=== PATIENT | male | born 1935 | race Caucasian/White ===

== ENCOUNTER 2019-04-26 11:14 | Inpatient (IN) | payer MEDICARE, OTHER ==
[2019-04-26 12:05] LABS: Hemoglobin 12.2 g/dL (14.0-18.0); Mean Corpuscular HGB CONC 32.1 g/dL (32.0-36.0); Mean Corpuscular Hemoglobin 31.5 pg (27.0-31.0); Mean Corpuscular Volume 98.1 fL (78.0-98.0); Mean Platelet Volume 8.6 fL (7.4-10.4); Platelet Count 312 thou/uL (130-400); RBC Distribution Width 11.3 % (11.5-14.5); Red Blood Cell (RBC) Count 3.86 mill/uL (4.70-6.10); White Blood Cell (WBC) Count 8.6 thou/uL (4.8-10.8)
[2019-04-26 12:31] LABS: Band 2 % (5-11); Eosinophils 1 % (0-10); Lymphocytes 15 % (21-51); MDiff Complete? YES; Monocytes 5 % (0-10); Neutrophil 75 % (42-75); RBC Morphology Normal; Reactive Lymphocytes 2 % (0-10)
[2019-04-26 12:35] LABS: Bilirubin Negative (Negative); Blood, Urine Negative (Negative); Clarity Clear (Clear); Glucose, Urine (Dipstick) Normal (Negative); Leukocyte Negative Leu/uL (Negative); Nitrite Negative (Negative); Protein, Urine (Dipstick) Negative (Neg-Trace); Urobilinogen Normal mg/dL (Less than 2)
[2019-04-26 12:35] LABS: ALT (SGPT) 17 U/L (8-55); AST (SGOT) 38 U/L (5-34); Albumin 3.5 g/dL (3.4-4.8); Alkaline Phosphatase 92 U/L (40-110); Anion Gap 16 mmol/L (10-20); BUN (Urea Nitrogen) 20 mg/dL (8.4-25.7); Bilirubin, Total 0.7 mg/dL (0.2-1.2); Calc. Creatinine Clearance 0 mL/min (70-130); Calcium 11.6 mg/dL (7.8-10.44); Carbon Dioxide 25 mmol/L (23-31); Chloride 103 mmol/L (98-107); Estimated GFR-MDRD 68; Globulin 2.9 g/dL (2.4-3.5); Glucose 83 mg/dL (83-110); Potassium 4.7 mmol/L (3.5-5.1); Protein, Total 6.4 g/dL (5.8-8.1); Sodium 139 mmol/L (136-145)
[2019-04-26 12:47] LABS: CKMB 1.2 ng/mL (0-6.6)
[2019-04-26 16:14] LABS: Troponin I 0.053 ng/mL (< 0.028)
[2019-04-26] MEDS ORDERED: Acetaminophen 325 MG TAB PO PRN (17:38)
[2019-04-26] MEDS ORDERED: Ondansetron ODT 4 MG TAB SL PRN (17:38)
[2019-04-26] MEDS ORDERED: Ondansetron PF 4 MG/2 ML Vial IVP PRN (17:38)
[2019-04-26] MEDS ORDERED: Labetalol HCl 100 MG/20 ML VIAL SLOW IVP PRN (17:50)
[2019-04-26 18:07] VITALS: BMI 32.3
[2019-04-26 18:24] LABS: Troponin I 0.039 ng/mL (< 0.028)
[2019-04-26] MEDS: Nitroglycerin 2% Ointment 1 INCH/1 GM Packet TOP SCH (19:27)
[2019-04-26] MEDS: Acetaminophen 325 MG TAB PO PRN (20:19)
[2019-04-26] MEDS: Famotidine 20 MG TAB PO SCH (20:19)
--- NOTE | 2019-04-26 22:37 | HP ---
PRIMARY CARE PHYSICIAN: Dr. Hunter. The patient sees a pain specialist, Dr. Marion, and also had been seeing Dr. Lee for neurosurgery. CHIEF COMPLAINT: My legs are getting weaker and my right leg just gives out. HISTORY OF PRESENT ILLNESS: Mr. Olsen is a pleasant 83-year-old gentleman who has a history of prostate cancer, which has been fairly remote. He says that he has been having problems with back and shoulder and neck pain for the past couple of months. He says that he has been having pain in his left shoulder, which radiates back into his shoulder blade and also has pain in his neck as well. He says this has been getting progressively worse and over the last 3 days it has gotten even worse. He also noted weakness in his legs. He says that his right leg just basically gives out. He says he usually walks with a walker, but now he can barely get to the wall and back he says without his legs basically giving out. He says he was going to see Dr. Lee in his office, because Dr. Lee had suspected that the leg weakness, shoulder and neck pain were related to cervical spine disease. He had a MRI done at the [facility] and has the disc and was going to follow up with Dr. Lee for this. However, he said he was so weak, he was afraid he would make it up to the office and as a result came to the ER instead. He denies any other symptoms such as fevers or chills. No night sweats. No weight loss. He denies having any injury or any fall, but has noted numbness in his feet. He says his bowels are usually fairly regular, but he does admit to being constipated off and on recently. He denies any chest pain. He denies any shortness of breath. Otherwise no other complaints. REVIEW OF SYSTEMS: All systems were reviewed and are negative except for that mentioned in the history of present illness. 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 PAST SURGICAL HISTORY: He has had an appendectomy when he was in his 40s. He said he had a perforation and had to be in the hospital for 21 days. He has had bilateral carpal tunnel surgeries, bilateral rotator cuff surgery, and cataract surgery as well as a radical prostatectomy in the . He also had a polyp removed and then had to have a partial colon resection. ALLERGIES: TO ASPIRIN AND NSAIDS, WHICH CAUSE EYE AND THROAT SWELLING. SOCIAL HISTORY: He is . He has one child. He is a nonsmoker and he occasionally drinks a few beers every now and then. He says he really cannot decide on code status, so therefore he is going to be a full code for right now. FAMILY HISTORY: Significant for cancer in his mother as well as his father. CURRENT MEDICATIONS ARE: None. He says that he had been taking a multivitamin off and on. PHYSICAL EXAMINATION: GENERAL: He is alert and oriented. He appears to be in no acute distress. He is well developed and well nourished. VITAL SIGNS: Blood pressure was 133/85, heart rate 74, respiratory rate of 18, temperature is 97.7, and O2 saturation is 98% on room air. HEENT: His pupils are equal, round, and reactive to light. Extraocular muscles are intact. Sclerae anicteric. Throat, there is no erythema, no exudate. NECK: No adenopathy, no bruits. LUNGS: Clear to auscultation. There is no wheezing, no rales, no rhonchi. CARDIOVASCULAR: He has a normal S1 and S2. There is no S3 or S4. No murmurs, clicks, or rubs. ABDOMEN: Soft, it is nontender and nondistended. Positive for bowel sounds. There is no rebound, no guarding, no organomegaly. EXTREMITIES: He has 1 to 2+ pitting edema in the ankles as well as the lower part of his calf. There is no calf tenderness however. No joint effusions. NEUROLOGIC: His cranial nerves 2 through 12 are grossly intact. EXTREMITIES: His muscle strength is 5/5 in both his upper and lower extremities. SKIN AND INTEGUMENT: There is no significant skin changes, no rash. LABORATORY DATA: White blood cell count is 8.6, hemoglobin 12.2, hematocrit is 37.9, and platelet count is 312. Sodium 139, potassium 4.7, chloride is 103, CO2 is 25, BUN of 20, creatinine 1.04, glucose is 83, calcium is 11.6, and troponin is 0.053. Urinalysis was negative. He had an EKG, which was sinus rhythm with no ST wave changes. ASSESSMENT: 1. Mr. Olsen is a pleasant 83-year-old gentleman who presents with lower extremity weakness, which has actually been progressive over the last couple of months, as well as pain in the left shoulder and neck region. I suspect this is musculoskeletal in origin and likely due to both C-spine and possible lumbar disk disease. I doubt he has an acute coronary syndrome despite his troponins being elevated. The weakness sounds fairly progressive and then with the focal weakness on the right lower extremity, it sounds more musculoskeletal than cardiac in origin. He will be admitted to telemetry as a precaution with regard to the lower extremity weakness and shoulder pain. It appears as if this is already under evaluation by Dr. Lee, and the patient has already obtained an MRI of the cervical spine and luckily he brought his imaging with him. We will consult Dr. Lee for further recommendations and consider a MRI of the lumbar spine as he has not had this in the last year. 2. Elevated troponin, unclear the etiology of this. However, once again, it does not appear he is having an acute coronary syndrome. We will go ahead and continue to trend his troponins, get an echocardiogram and get a lipid panel and reassess in the a.m. Otherwise, further recommendations are to follow. Job ID: [id number]
[2019-04-27 04:05] LABS: #Eosinphils 0.2 thou/uL (0.0-0.7); #Monocytes 0.9 thou/uL (0.11-0.59); #Neutrophils 6.7 thou/uL (1.40-6.50); %Basophils 0.3 % (0.0-1.0); %Eosinophils 1.8 % (0.0-10.0); %Lymphocytes 10.9 % (21.0-51.0); %Monocytes 10.2 % (0.0-10.0); %Neutrophils 76.8 % (42.0-75.0); Hemoglobin 11.3 g/dL (14.0-18.0); Mean Corpuscular Volume 97.1 fL (78.0-98.0); Mean Platelet Volume 8.5 fL (7.4-10.4); Platelet Count 270 thou/uL (130-400); RBC Distribution Width 11.2 % (11.5-14.5); Red Blood Cell (RBC) Count 3.33 mill/uL (4.70-6.10); White Blood Cell (WBC) Count 8.7 thou/uL (4.8-10.8)
[2019-04-27 04:34] LABS: Anion Gap 11 mmol/L (10-20); BUN (Urea Nitrogen) 20 mg/dL (8.4-25.7); Calc. Creatinine Clearance 76 mL/min (70-130); Calcium 11.3 mg/dL (7.8-10.44); Carbon Dioxide 25 mmol/L (23-31); Cardiac Risk 4.6 (Less than 4.5); Chloride 105 mmol/L (98-107); Cholesterol 166 mg/dl (< 200 Desired); Estimated GFR-MDRD 67; Glucose 80 mg/dL (83-110); HDL Cholesterol 36 mg/dL (>60 Neg Risk); LDL Cholesterol, Calculated 107 mg/dL; Potassium 3.6 mmol/L (3.5-5.1); Sodium 137 mmol/L (136-145); Triglycerides 113 mg/dL (Less than 150)
[2019-04-27] MEDS: Nitroglycerin 2% Ointment 1 INCH/1 GM Packet TOP SCH (07:18)
[2019-04-27] MEDS: Famotidine 20 MG TAB PO SCH ×2 (08:11→22:07)
[2019-04-27] MEDS: Sodium Chloride 0.9% 1,000 ML IV SCH (08:11)
[2019-04-27] MEDS: Enoxaparin Sodium 40 MG/0.4 ML SYRINGE SC SCH (08:11)
[2019-04-27 08:37] LABS: Iron 48 ug/dL (65-175); Iron Binding Capacity, Total 178 mcg/dL (261-462)
[2019-04-27] MEDS ORDERED: FLU VACC TS2019-20(65YR UP)/PF 180 MCG/0.5 ML SYRINGE IM ONE (09:00)
[2019-04-27 09:04] LABS: Ferritin 1099.52 ng/mL (22-322)
--- NOTE | 2019-04-27 11:39 | MRI ---
MRI LUMBAR SPINE NONCONTRAST: HISTORY: Visualized right sided leg weakness. Gait impairment. COMPARISON: None. FINDINGS: Mildly heterogeneous marrow signal intensity of the lumbar vertebrae. Intrinsic T1 hypointensity with associated T2 and STIR hyperintensity involving the anterior aspect of T12, posterior right aspect of L4, extending into the right L4 pedicle, left aspect of L2 and at the S2 level. Findings favor mul tifocal osseous metastases. Mild loss of vertebral body height at L4 without edema suggesting a remote mild compression fracture, without significant retropulsion. Abnormal soft tissue prominence of bilateral adrenal glands as well as lack of normal architecture of the left kidney. Malignancy/metastases is suspected until proven otherwise. Conus medullaris terminates at the superior aspect of L1. T12-L1:Adequate disc hydration. No significant central canal stenosis or significant neural foraminal narrowing. L1-L2:Minimal desiccation without significant loss of disc space height. No significant central canal stenosis. Bilaterally, neural foramen are patent. L2-L3:Disc desiccation with mild loss of disc space height. Broad-based disc bulge, ligament flavum t hickening and facet hypertrophy result in mild central canal stenosis. Mild narrowing of bilateral subarticular zones with partial obscuration of bilateral traversing L3 nerve roots. Moderate bilatera l neural foraminal narrowing. L3-L4:Disc desiccation with mild loss of disc space height. Broad-based disc bulge, ligament flavum t hickening and facet hypertrophy result in moderate to severe central canal stenosis. Moderate to severe right and moderate left foraminal narrowing. L4-L5:Disc desiccation with mild loss of disc space height. Broad-based disc bulge, ligament flavum t hickening and facet hypertrophy result in moderate central canal stenosis. Moderate bilateral neural foraminal narrowing. L5-S1:Vacuum disc phenomenon with mild loss of disc space height. Broad-based disc bulge does not cau se any significant stenosis of the thecal sac. However, there is encroachment upon bilateral subarticular zones due to disc material and posterior element hypertrophy. Partial obscuration of yudy ateral traversing S1 nerve roots. Moderate to severe bilateral neural foraminal narrowing. Mildly distended urinary bladder is nonspecific. IMPRESSION: 1. Multifocal osseous metastases as described above. There appears be a metastatic lesion at T12, L2 , L4 and S2. 2.. Degenerative disc disease of the lumbar spine as described above. Varying degrees of significant central canal stenosis and foraminal narrowing as described above. 3. Fullness of both adrenal glands and loss of normal architecture of the left kidney. Dedicated CT o f the chest, abdomen, and pelvis is recommended. Transcribed Date/Time: 04/27/2019 12:03 PM
--- NOTE | 2019-04-27 11:55 | MRI ---
THORACIC SPINE MRI WITHOUT CONTRAST: DATE: 04/27/2019. COMPARISON: None. HISTORY: Generalized weakness with right-sided leg weakness. TECHNIQUE: Multiplanar, multisequence MR imaging of the thoracic spine without contrast. FINDINGS: There is a 2.3 cm lesion of decreased T1 and increased T2 signal within the anterior aspect of the T1 2 vertebral body. There is a lesion centered within the pedicle and pars intraarticularis on the lef t at T8 which demonstrates decreased T1 and increased T2 signal. There is a nonspecific round lesion of central decreased and peripheral increased signal within the superior aspect of the T8 vertebral body measuring 8 mm. No anterolisthesis or retrolisthesis noted. There is no significant central ca nal stenosis or neural foraminal stenosis at any level within the thoracic spine. There is no abnorm al signal intensity identified within the thoracic cord. There is questionable abnormal decreased T1 and T2 signal within the region of the facet joint on the left at C7-T1 extending into the left neural foramen, only partially evaluated/visualized on this ex am. This could represent a mass lesion. Limited evaluation of the lung parenchyma suggests pulmonary nodules within posterior aspect of the i thao lungs bilaterally. Bilateral adrenal masses are noted, suspicious for metastatic disease. IMPRESSION: 1. Two nonspecific thoracic spine lesions, including a lesion at T8 and T12. Given the suggestion o f bilateral pulmonary nodules, these findings are concerning for possible metastatic disease. Recomm end CT and whole body scan. 2. Question bilateral adrenal masses for which CT is advised. 3. Possible lesion centered within the C7-T1 neural foramen on the left for which dedicated contrast -enhanced cervical spine MRI advised. Recommend CT of the chest, abdomen, and pelvis with IV and oral contrast as well. CODE T POS: CHET
[2019-04-27 13:06] LABS: Reference Lab Name LABCORP
--- NOTE | 2019-04-27 13:12 | PDOC.HOSPP ---
- Subjective Encounter Date: 04/27/19 Encounter Time: 13:09 Subjective: Mr. Olsen was seen today in follow-up of lower extremity weakness as well as pain in his left shoulder. He feels about the same. - Objective Vital Signs & Weight: Vital Signs (12 hours) Temp Pulse Resp BP Pulse Ox 04/27/19 11:57 98 F 82 16 134/62 94 L 04/27/19 07:34 96 04/27/19 07:18 98.0 F 69 24 H 157/66 H 96 04/27/19 03:44 98.1 F 77 17 124/58 L 97 Weight Weight 219 lb 6.006 oz I&O: 04/26/19 04/27/19 04/28/19 06:59 06:59 06:59 Intake Total 240 Balance 240 Result Diagrams: 04/27/19 03:49 04/27/19 03:49 Hospitalist ROS - Medication Medications: Active Medications Generic Name Dose Route Start Last Admin Trade Name Freq PRN Reason Stop Dose Admin Acetaminophen 650 mg 04/26/19 17:50 04/26/19 20:19 Tylenol PO 650 mg Q4H PRN Administration Headache/Fever/Mild Pain (1-3) Enoxaparin Sodium 40 mg 04/27/19 09:00 04/27/19 08:11 Lovenox SC 40 mg 0900 FAITH Administration Famotidine 20 mg 04/26/19 21:00 04/27/19 08:11 Pepcid PO 20 mg BID FAITH Administration Sodium Chloride 1,000 mls @ 70 mls/hr 04/27/19 07:45 04/27/19 08:11 Normal Saline 0.9% IV 1,000 mls .[id number] FAITH Administration Sodium Chloride 10 ml 04/27/19 09:00 04/27/19 08:13 Flush - Normal Saline IVF 10 ml Q12HR FAITH Administration - Exam Eye: PERRL Heart: RRR, no murmur, no gallops, no rubs, normal peripheral pulses Respiratory: CTAB, no wheezes, no rales, no ronchi, normal chest expansion, no tachypnea, normal percussion Gastrointestinal: soft, non-tender, non-distended, normal bowel sounds, no palpable masses, no hepatomegaly Extremities: no cyanosis, 1+ LE edema Hosp A/P (1) Lower extremity weakness Code(s): R29.898 - OTH SYMPTOMS AND SIGNS INVOLVING THE MUSCULOSKELETAL SYSTEM Status: Acute (2) Metastatic disease Code(s): C79.9 - SECONDARY MALIGNANT NEOPLASM OF UNSPECIFIED SITE Status: Acute (3) History of prostate cancer Code(s): Z85.46 - PERSONAL HISTORY OF MALIGNANT NEOPLASM OF PROSTATE Status: Acute (4) Hypercalcemia Code(s): E83.52 - HYPERCALCEMIA Status: Acute - Plan * Back pain and leg weakness- MRI results noted- he appears to have metastatic disease to the spine- he has a history of Prostate cancer, so will check a PSA * Hypercalcemia- I suspect due to cancer- his PTH is suppressed * Will place him on IV fluids and re-check in the AM * Await further recommendations from Neurosurgery * Will place him on IV decadron * Anemia- most likely due to chronic disease * Troponin- slightly elevated- I doubt this represents an acute coronary syndrome- will follow-up of Echo results, and hopefullt can discontinue telemetry
--- NOTE | 2019-04-27 16:00 | CT ---
EXAM: CT of the chest with contrast CT of the abdomen and pelvis with contrast HISTORY: Osseous metastatic disease on MRI lumbar spine COMPARISON: MRI lumbar spine 04/27/2019 TECHNIQUE: 1. Multiple contiguous axial images were obtained in a CT the chest with contrast. Coronal and sagitt al reformats were performed. 2. Multiple contiguous axial images were obtained and a CT of the abdomen and pelvis with contrast. C oronal and sagittal reformats were performed. FINDINGS: CT CHEST: HEART: Normal in size without focal cardiac abnormality MEDIASTINUM: No hilar or mediastinal lymphadenopathy. LUNGS: Too numerous to count nodules are seen scattered throughout both lungs consistent with cannonb all metastases. PLEURAL SPACE: No pneumothorax or pleural effusion. CHEST WALL SOFT TISSUES: Unremarkable CT ABDOMEN/PELVIS: ABDOMEN: LIVER: within normal limits. BILE DUCTS: Normal caliber. GALLBLADDER: No calcified gallstones. Normal caliber wall. PANCREAS: within normal limits. SPLEEN: within normal limits. ADRENALS: 3.3 cm right adrenal mass. The left adrenal mass is contiguous with the mass of the left ki dney. KIDNEYS: 10.7 cm left renal mass contiguous with the left adrenal mass. There is nodularity surroundi ng the left kidney in the perinephric fat. Some of these nodules are seen along the superior aspect of the kidney and some of the nodules are seen more inferiorly. The nodules measure up to 2.0 cm in s ize. 2.2 cm right renal cyst. PELVIS: REPRODUCTIVE ORGANS: Surgical clips in the pelvis are likely from prior prostatectomy. URETERS: Nodularity is seen surrounding the left ureter extending down to the pelvis. BLADDER: within normal limits. PERITONEUM: No ascites or free air, no fluid collection. BOWEL: There is possibly a 3.2 cm mass involving the proximal jejunum. MESENTERY AND RETROPERITONEUM: No enlarged mesenteric or retroperitoneal lymph nodes. VESSELS: Atherosclerotic calcifications. ABDOMINAL WALL: within normal limits. OSSEOUS STRUCTURES: A large lytic lesion is seen in the left scapula consistent with osseous metastat ic disease. There is a lytic lesion in the anterior left fourth rib consistent with an osseous metastasis. Subtle trabecular change in the anterior aspect of the T12 vertebral body likely represen ts osseous metastatic disease. Subtle changes also seen in the left pedicle of L4. IMPRESSION: 1. There is a large mass involving the superior pole the left kidney and left adrenal gland. This cou ld be a primary renal or adrenal mass. 2. There are scattered nodules surrounding the left kidney and proximal left ureter which likely repr esent focally invasive metastatic disease. 3. 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 Osseous metastatic disease 5. Right adrenal metastasis 6. Possible jejunal mass. This could also represent an adjacent invasion by the nodularity that surro unds the left kidney and adrenal gland.
[2019-04-27] MEDS ORDERED: Iopamidol-370 76% 500 ML 1 ML ONE (16:08)
[2019-04-27] MEDS: Dexamethasone 4 mg/ml Vial SLOW IVP SCH (18:30)
[2019-04-27] MEDS: Acetaminophen 325 MG TAB PO PRN (18:31)
--- NOTE | 2019-04-27 22:14 | CON ---
DATE OF CONSULTATION: 04/27/2019 CHIEF COMPLAINT: Leg weakness, right hip pain, neck pain, left shoulder pain. HISTORY OF PRESENT ILLNESS: Mr. Olsen is a pleasant 83-year-old gentleman who presented to the emergency department yesterday for evaluation of increased weakness in his legs. He was scheduled to have an office visit with our Neurosurgery team today, however he stated that he felt his symptoms had progressed to a point where he needed to be evaluated sooner. He states that over the last week and a half he has had progressive weakness in his legs, greater on the right. He states that his legs have been giving out from underneath him. He typically uses a walker to assist with ambulation at baseline. However, this has not been as helpful with his increased weakness. He denies significant pain in his back. He does report right hip pain that is exacerbated by movement of his right leg. Additionally, he reports neck pain radiating into the left shoulder. He also reports pain in his left arm that is nondermatomal. Overall, he states that while his present symptoms have been worsening over the last week and a half, they have been significantly worse over the last 3 days. The patient has an MRI of the cervical spine from 02/2019 that he brings on CD. No recent imaging of his thoracic or lumbar spines. He has not undergone any recent physical therapy or epidural steroid injections. He has previously undergone lumbar IGLESIA with Dr. Harrison and experienced symptomatic relief. No prior spinal surgeries. PRIOR MEDICAL HISTORY: Prostate cancer, remote. PHYSICAL EXAMINATION: The patient is awake, alert, and appropriate. He has good strength throughout his upper and lower extremities bilaterally, however he does have some limited range of motion in the right leg secondary to pain in his right hip. His range of motion is most limited upon testing of the right iliopsoas and hamstring. Otherwise, he has sensation to light touch intact and equal in both legs. His gait was not assessed. IMPRESSION AND DIAGNOSES: 1. Lumbar stenosis with increased leg weakness. 2. Neck pain, left shoulder pain and left arm pain. 3. History of prostate cancer. PLAN: At this time, I have reviewed this case and discussed imaging with Dr. Lee. The patient recently had an open MRI of the cervical spine completed in February 2019, which he provided on a CD. This was reviewed and displayed no findings concerning for central or foraminal cervical stenosis. The patient had no recent imaging of his thoracic or lumbar spine completed. Therefore, MRIs of the thoracic and lumbar spine without contrast were ordered to further evaluate his increased lower extremity weakness.. His thoracic MRI showed findings of vertebral body lesions of T8 and T12, but no thoracic stenosis. Lumbar MRI demonstrated bilateral lateral recess stenosis of L2-S1. The patient has not had recent conservative management with lumbar epidural steroid injections. Therefore, he will be referred to Pain Management for interlaminar epidural steroid injections. Should he fail conservative management, surgery would be an L2-S1 laminectomies, partial facetectomies, and foraminotomies. At this time, patient can be managed from an outpatient basis. There is no need for urgent or emergent neurosurgical intervention at this time given the patient's imaging findings and his clinical examination. Our medical colleagues are assisting with further workup of his vertebral body lesions, which may represent metastatic disease. A CT chest/abdomen/pelvis has been ordered to further evaluated. Patient would benefit from therapies during his hospital stay. Plan will be discussed with the patient when we see him tomorrow morning. Call for any changes in neurologic status or any other concerns. This was a 50 minute initial visit in which greater than 50% of the time was spent in review of records, imaging, evaluation, examination of the patient, and formulation of a plan. The remaining time was spent in counseling and coordination of care. Job ID: [id number] [facility]
[2019-04-28] MEDS: Sodium Chloride 0.9% 1,000 ML IV SCH ×2 (01:30→11:25)
[2019-04-28] MEDS: Dexamethasone 4 mg/ml Vial SLOW IVP SCH ×5 (01:31→23:20)
[2019-04-28 04:25] LABS: Anion Gap 12 mmol/L (10-20); BUN (Urea Nitrogen) 18 mg/dL (8.4-25.7); Calc. Creatinine Clearance 71 mL/min (70-130); Calcium 10.8 mg/dL (7.8-10.44); Carbon Dioxide 24 mmol/L (23-31); Chloride 104 mmol/L (98-107); Estimated GFR-MDRD 62; Glucose 148 mg/dL (83-110); Potassium 4.4 mmol/L (3.5-5.1); Sodium 136 mmol/L (136-145)
[2019-04-28] MEDS: Enoxaparin Sodium 40 MG/0.4 ML SYRINGE SC SCH (11:23)
[2019-04-28] MEDS: Famotidine 20 MG TAB PO SCH ×2 (11:23→20:10)
--- NOTE | 2019-04-28 13:29 | PRG ---
DATE OF SERVICE: 04/28/2019 This is a 50-minute initial hospital visit note, in which 50 minutes were spent reviewing the imaging record, evaluation, examination, patient formulation of plan. Greater than 50% time was spent in counseling on Robert Olsen. I read the notes of my colleague Maryann Kearns PA-C and agrees with content. SUBJECTIVE: Mr. Olsen is a very pleasant 83-year-old gentleman. He is a family friend of another one of my patients. I was going to see him in clinic yesterday for low back and right leg pain and weakness. He had increased weakness and presented to the hospital. Upon our exam, he had good strength throughout his lower extremity myotomes, but admittedly this was over manual muscle testing and not functional assessment with gait. He endorses pain into the right hip and anterior thigh and L3 distribution. Review of lumbar spine MRI demonstrates stenosis that is most severe at L2-L3 that extends down from L3 all the way down to S1, but again the lion's share of his stenosis is at L2-L3. He has also had urinary incontinence. He also has lesions in his bones and while he has no cervical stenosis nor does he have any thoracic stenosis on an outside disk on [place] imaging respectively. He does have lesions in the bone. 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 We are getting MRI of the brain without and with contrast to further staging given the right lower extremity weakness. OBJECTIVE: On exam, he does have as my colleague laid out good strength throughout his lower extremity myotomes. He has no obvious cranial nerve deficits nor any upper extremity deficits. He has left shoulder pain but has a scapular met on the left side. Dr. Coronado will be seeing the patient in regard to prognostication, but obviously it is not good with his multifocal mets related to his renal cell carcinoma. I would advocate for injection therapy at this point and rehab and palliative care, but I will continue to follow along. Job ID: [id number]
--- NOTE | 2019-04-28 15:02 | MRI ---
Brain MRI with and without contrast: 04/28/2019 COMPARISON: None HISTORY: Metastatic disease, assess for intracranial metastatic disease. TECHNIQUE: Multiplanar multisequence MR imaging of the brain with and without contrast FINDINGS: The diffusion weighted imaging demonstrates no evidence for acute infarction. The axial gra dient echo imaging demonstrates no evidence for intracranial hemorrhage. There is mild diffuse cerebral volume loss with associated prominence of the CSF containing spaces. N o midline shift or mass effect. No ventricular enlargement. No significant mucosal abnormality is noted involving the imaged paranasal sinuses/mastoid air cells. Arterial flow voids at the axial level of the skull base appear grossly unremarkable on the T2-weight ed imaging. There is an enhancing calvarial lesion posteriorly and superiorly to the left of midline measuring 4 cm, evidence of a left parietal calvarial metastatic lesion. The postcontrast imaging demonstrates no discrete intra-axial enhancing lesion. IMPRESSION: Calvarial metastatic disease as detailed above. No intra-axial enhancing mass lesion.
--- NOTE | 2019-04-28 16:37 | CON ---
DATE OF CONSULTATION: 04/28/2019 CONSULTING: Dr. Abdi. CONSULTED: Dr. Coronado. REASON FOR CONSULTATION: Renal mass. HISTORY OF PRESENT ILLNESS: Mr. Olsen is an 83-year-old white male with a history of lumbar stenosis and significant degenerative disk disease with progressively worsening radiculopathy in his right leg. He is currently followed by Dr. Lee for this and had progressively had worsening right leg weakness. He was scheduled to have an MRI and see Dr. Lee for this in a few weeks, but he began having significant weakness to the point where he could not even walk. He was collapsing at home, and he was brought in by EMS to the emergency room, where he underwent workup at that time with urgent MRI. During the MRI, aside from his lumbar stenosis, it was noted that he had nonspecific lesions on the spine concerning for possible metastatic disease as well as possible adrenal masses and renal masses, which were not well evaluated on the MRI. He subsequently received a CT of the chest, abdomen, and pelvis by the Hospitalist Service, which demonstrated a large confluent mass on the left kidney and left adrenal gland with regional lymphadenopathy, jejunal mass, multiple lung metastases, and multiple osseous metastatic diseases throughout the left scapula, ribs, spine, and other bony structures. The patient currently denies any weight loss. He denies any chest pain or shortness of breath, although his troponins were elevated on initial laboratory evaluation. This is currently being worked up while in the hospital. He does have a history of prostate cancer and has had this treated in the past, but states he has been free of prostate cancer for many years and is no longer following this issue. He has not had any hematuria or flank pain. He did have shoulder pain, which has progressively been getting worse in his left shoulder for the past several weeks, which he attributed to arthritis or some other problem. On the CT, there is correlation with significant sclerotic bone lesions in his left scapula, which is probably responsible for the pain in that location. He reports no urinary difficulties. Otherwise, he has no history of urolithiasis. ALLERGIES: ASPIRIN AND NSAIDS, WHICH HE HAD ANAPHYLACTIC REACTIONS TO. PAST MEDICAL HISTORY: 1. Prostate cancer. 2. Degenerative disk disease and lumbar stenosis. 3. Arthritis. PAST SURGICAL HISTORY: 1. Appendectomy in his 40s. 2. Bowel perforation repair. 3. Radical prostatectomy in early . 4. Cataract surgery. 5. Partial colectomy. 6. Bilateral rotator cuff surgeries. FAMILY HISTORY: Significant for cancer in his parents, although the exact type was unspecified. SOCIAL HISTORY: The patient is currently . He lives with his . He does have a child and a granddaughter, who help make most of their medical decisions, although he still makes his own medical decisions. He does not smoke and drinks only on social occasions. He is currently a full code as he was not able to decide code status on this admission. REVIEW OF SYSTEMS: A 12-point review of system was reviewed and negative other than what was commented on the HPI. PHYSICAL EXAMINATION: VITAL SIGNS: Temperature 98.4, pulse 90, respirations 20, blood pressure 115/64, and saturation 94% on room air. GENERAL: No apparent distress. Communicative and alert. Well nourished, well developed, appears stated age. HEENT: Normocephalic, atraumatic. Pupils are symmetric and round. Wears glasses. Moist mucous membranes. Trachea midline. CARDIOVASCULAR: Regular rate and rhythm. Normal S1 and S2. Symmetric pulses. CHEST: No increased work of breathing, symmetric expansion of the lungs. Clear to auscultation anteriorly. ABDOMEN: Soft, nontender, and nondistended. Positive bowel sounds. No obvious organomegaly. Due to the patient's weight, the mass is not clearly defined on physical exam on his left kidney. There is a suprapubic scar from his prostatectomy. : Unremarkable. KEESHA is deferred at this time. EXTREMITIES: No clubbing, cyanosis, or edema. MUSCULOSKELETAL: No joint deformities or joint erythema noted. The patient does have tenderness over his right scapula and right shoulder. NEUROLOGIC: Cranial nerves 2 through 12 appear grossly intact. The patient has significant right lower extremity weakness, which presumably is from his lumbar stenosis according to Dr. Lee. His left leg seems to have enough strength. The patient states he cannot walk adequately currently. No complaints of arm weakness, and he does seem to have good strength in his hands. SKIN: Warm and dry. No rashes or lesions. Good turgor. PSYCHIATRIC: Alert and oriented x3. Appropriate mood and affect. LABORATORY EVALUATION: The full set of labs are in the [facility] system, which I have reviewed. Of note, the patient's white count is 8.7, hemoglobin is 11.3, and platelets of 270. Creatinine is currently 1.13 with a calcium of 10.8. PSA is less than 0.02. PTH is at 7. ASSESSMENT AND PLAN: An 83-year-old white male with likely renal cell carcinoma, although adrenocortical carcinoma is less likely, but not excluded. The patient does have regional and distant metastatic disease including soft tissue metastases, which is generally indicative of a poor prognosis. Dr. Lee does feel that his right lower extremity weakness is most likely due to lumbar radiculopathy. I would agree with Dr. Lee's assessment. However, I do think brain imaging would be necessary given the extensive nature of metastatic disease. The patient may have brain metastasis or possibly a lesion on his left temporal lobe, which may cause right leg weakness as well. This would also be necessary for proper staging. I did speak with Dr. Quevedo, who recommended that we go ahead and get a bone scan as well for full staging as they may continue trending this over time. We would recommend getting a percutaneous renal biopsy to ensure that this is not adrenocortical carcinoma, and the subtype of renal cancer that is discovered may guide immunotherapy or chemotherapy if the patient desires. We had a brief conversation regarding hospice and palliative care versus definitive treatment. The patient is a little bit undecided on what to do and I told him that it would be best to discuss things with his family as well as an oncologist. If he is not sure at the current time, I would recommend proceeding forward with the treatment plan as he would probably have an initial response to the chemotherapeutic or immunotherapeutic agents, although it will likely not be curative in his case, it may prolong survival and help with palliation of symptoms. Ultimately, I think it would be best for him to talk with the medical oncologist regarding this disease and his prognosis as there will be a very limited role for surgical resection, especially in the setting of the patient's age, soft tissue metastatic disease, and the possibility of bone metastasis, which we will await results for. I will continue to follow along if necessary, but there will not be much of a role for urologic care in this instance. The patient has no evidence of recurrence of prostate cancer. The patient's hypercalcemia is likely secondary to bony metastatic disease as is further reflected by his suppressed PTH levels. SUMMARY OF RECOMMENDATIONS: 1. N.p.o. after midnight. 2. Percutaneous renal biopsy of left renal mass tomorrow. This will need to be done under anesthesia as the patient states he will not be able to lay still very long due to his back and shoulder pain. 3. We will hold Lovenox. This can be restarted 24 hours after his renal biopsy if there is no evidence of bleeding or hemorrhage. 4. Medical Oncology consult. 5. A brain MRI and bone scan. Job ID: [id number]
[2019-04-28] MEDS ORDERED: Magnevist 469MG/ML 20 ML VIAL ONE (16:43)
[2019-04-28] MEDS: Acetaminophen 325 MG TAB PO PRN (20:10)
[2019-04-29] MEDS: Dexamethasone 4 mg/ml Vial SLOW IVP SCH ×3 (05:14→16:57)
[2019-04-29] MEDS: Sodium Chloride 0.9% 1,000 ML IV SCH ×3 (05:14→21:21)
[2019-04-29] MEDS: Famotidine 20 MG TAB PO SCH ×2 (09:18→21:18)
[2019-04-29] MEDS ORDERED: Glycopyrrolate 0.2 MG/ML 5 ML SYRINGE ONE (10:40)
[2019-04-29] MEDS ORDERED: PROPOFOL 200 MG/20 ML VIAL ONE (10:40)
[2019-04-29] MEDS ORDERED: Ondansetron PF 4 MG/2 ML Vial ONE (10:40)
[2019-04-29] MEDS ORDERED: Rocuronium Bromide 10 MG/ML (10ML VIAL) ONE (10:40)
[2019-04-29] MEDS ORDERED: Lidocaine 1% PF 5 ML VIAL ONE (10:40)
[2019-04-29] MEDS ORDERED: Succinylcholine Chloride 20 MG/ML 10 ml SYRINGE FS ONE (10:40)
[2019-04-29] MEDS ORDERED: Fentanyl 100 MCG/2 ML VIAL ONE ×2 (12:37→12:42)
--- NOTE | 2019-04-29 15:32 | CT ---
EXAM: CT Renal Perc Biopsy PROVIDED CLINICAL HISTORY: Large left renal mass with metastatic disease. COMPARISON: CT abdomen on 04/27/2019. TECHNIQUE: The procedure including the risks and complications were explained to the patient, and informed conse nt was obtained. General endotracheal anesthesia was performed for this examination by the anesthesiology department. Patient was placed in the prone position on the CT scan table. Noncontrast CT scan was obtained to the level of the large left renal mass with grid localizer in place. An area was marked and then meticulously prepped and draped in usual sterile fashion. Skin and subcutaneous tissues were infiltrated with 1% lidocaine for local anesthesia at the intended puncture site. Small skin incision was made. A 17-gauge guide needle was advanced followed by axial noncontrasted CT images. This was repeated until the needle was placed within the most posterio r margin of the left renal mass. Utilizing coaxial technique, a total of [id number] core needle biopsy specimens were obtained. Abnormal cells were obtained on initial biopsy. 2 additional biopsy s pecimens were obtained. The inner stylette was replaced, and the needle was removed. Hemostasis was achieved with direct pressure. Follow-up noncontrasted CT scan through level of biopsy demonstrates n o perinephric fluid or hematoma adjacent to site of biopsy. Dry sterile dressing was placed at biopsy site. Patient tolerated the procedure well and without imme diate complication. IMPRESSION: Technically successful CT-guided percutaneous biopsy of large left renal mass. Final pathology result s are currently pending.
--- NOTE | 2019-04-29 16:17 | NM ---
WHOLE BODY BONE SCAN: HISTORY: Renal cancer with osseous metastases RADIOPHARMACEUTICAL: 31 mCi technetium 99m-MDP injected intravenously COMPARISON: None CORRELATION: CT chest, abdomen and pelvis of 04/27/2019 FINDINGS: There is increased uptake in the vertex of the skull, left scapula pain bilateral femurs, consistent with osseous metastatic disease. There scattered degenerative activity in the appendicular skeleton. Tracer excretion through the kidneys is within normal limits. IMPRESSION: Multiple osseous metastases.
--- NOTE | 2019-04-29 16:30 | PRG ---
DATE OF SERVICE: 04/29/2019 SUBJECTIVE: The patient recently just underwent a percutaneous renal mass biopsy. He is in recovery. He states he is feeling okay. He is not having any major pain. Unfortunately, his brain MRI yesterday did demonstrate a left-sided calvarial mass, which very easily could be causing the patient's right-sided leg weakness. Alternatively, it may also be his spinal stenosis. OBJECTIVE: VITAL SIGNS: Temperature 97.6, pulse 68, respirations 18, blood pressure 143/70, and saturation 94% on room air. GENERAL: No apparent distress, a little somnolent, but otherwise appears okay. CARDIOVASCULAR: Regular rate and rhythm. Normal S1 and S2. ABDOMEN: Soft, nontender, and nondistended. Positive bowel sounds. GENITOURINARY: Nonfocal, unremarkable. EXTREMITIES: No clubbing, cyanosis, or edema. LABORATORY DATA: On laboratory evaluation, there are no new labs today to evaluate. 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 The overall prognosis is extremely poor for this patient. I do think the patient understands that his prognosis is not very good. He has not yet decided on hospice versus palliative type treatment. We had recommended to proceed with the biopsy, so that if he decides to pursue treatment, he can have a tissue diagnosis to consider palliative chemo or immunotherapies. For now, we are still awaiting consultation from Medical Oncology. From a urologic standpoint, there is really nothing further for us to provide at this point. The patient is not a candidate for cytoreductive nephrectomy given distal and brain metastases. Best option for the patient would either be palliative chemotherapy and palliative radiation in painful areas or straight hospice and palliative care only. This ultimately should be decided between Medical Oncology and the patient. From my standpoint, I will go ahead and sign off. If there are any further issues or treatments necessary from a urologic standpoint, please do not hesitate to re-consult. Job ID: [id number]
--- NOTE | 2019-04-29 18:17 | PDOC.HOSPP ---
- Subjective Encounter Date: 04/29/19 Encounter Time: 18:16 Subjective: Mr. Olsen was seen today in follow-up of renal mass, and metastatic cancer. He does not have any complaints. He denies pain. - Objective Vital Signs & Weight: Vital Signs (12 hours) Temp Pulse Resp BP Pulse Ox 04/29/19 16:59 98.5 F 55 L 18 135/71 92 L 04/29/19 11:42 97.6 F 68 143/70 H 94 L 04/29/19 08:08 97.7 F 71 20 143/73 H 93 L 04/29/19 08:00 93 L Weight Weight 219 lb 6.006 oz I&O: 04/28/19 04/29/19 04/30/19 06:59 06:59 06:59 Intake Total 960 2320 Output Total 300 Balance 960 2020 Result Diagrams: 04/27/19 03:49 04/28/19 03:44 Hospitalist ROS - Medication Medications: Active Medications Generic Name Dose Route Start Last Admin Trade Name Freq PRN Reason Stop Dose Admin Acetaminophen 650 mg 04/26/19 17:50 04/28/19 20:10 Tylenol PO 650 mg Q4H PRN Administration Headache/Fever/Mild Pain (1-3) Dexamethasone 4 mg 04/27/19 18:00 04/29/19 16:57 Decadron SLOW IVP 4 mg Q6HR FAITH Administration Famotidine 20 mg 04/26/19 21:00 04/29/19 09:18 Pepcid PO 20 mg BID FAITH Administration Sodium Chloride 1,000 mls @ 70 mls/hr 04/27/19 07:45 04/29/19 16:57 Normal Saline 0.9% IV Not Given .[id number] FAITH Sodium Chloride 10 ml 04/27/19 09:00 04/29/19 09:20 Flush - Normal Saline IVF Not Given Q12HR FAITH - Exam Eye: PERRL Heart: RRR, no murmur, no gallops, no rubs, normal peripheral pulses Respiratory: CTAB, no wheezes, no rales, no ronchi, normal chest expansion, no tachypnea, normal percussion Gastrointestinal: soft, non-tender, non-distended, normal bowel sounds, no palpable masses Extremities: no cyanosis, no edema Hosp A/P (1) Lower extremity weakness Code(s): R29.898 - OT SYMPTOMS AND SIGNS INVOLVING THE MUSCULOSKELETAL SYSTEM Status: Acute (2) Metastatic disease Code(s): C79.9 - SECONDARY MALIGNANT NEOPLASM OF UNSPECIFIED SITE Status: Acute (3) History of prostate cancer Code(s): Z85.46 - PERSONAL HISTORY OF MALIGNANT NEOPLASM OF PROSTATE Status: Acute (4) Hypercalcemia Code(s): E83.52 - HYPERCALCEMIA Status: Acute - Plan * Metastatic cancer- likely renal primary- he is s/p renal biopsy and awaiting results- staging is in progress. He and his family are beginning to think about whether they wish for treatment or not. Will place a Palliative care consult, and case management consult to begin discharge planning * Hypercalcemia- due to malignancy- improved * Continue IV Decadron * Anemia- most likely due to chronic disease *
--- NOTE | 2019-04-29 18:27 | PDOC.HOSPP ---
- Subjective Encounter Date: 04/28/19 Encounter Time: 16:00 Subjective: Patient was seen in follow-up of metastatic cancer. He does not have any complaints today - Objective Vital Signs & Weight: Vital Signs (12 hours) Temp Pulse Resp BP Pulse Ox 04/29/19 16:59 98.5 F 55 L 18 135/71 92 L 04/29/19 11:42 97.6 F 68 143/70 H 94 L 04/29/19 08:08 97.7 F 71 20 143/73 H 93 L 04/29/19 08:00 93 L Weight Weight 219 lb 6.006 oz I&O: 04/28/19 04/29/19 04/30/19 06:59 06:59 06:59 Intake Total 960 2320 Output Total 300 Balance 960 2019 Result Diagrams: 04/27/19 03:49 04/28/19 03:44 Hospitalist ROS - Medication Medications: Active Medications Generic Name Dose Route Start Last Admin Trade Name Freq PRN Reason Stop Dose Admin Acetaminophen 650 mg 04/26/19 17:50 04/28/19 20:10 Tylenol PO 650 mg Q4H PRN Administration Headache/Fever/Mild Pain (1-3) Dexamethasone 4 mg 04/27/19 18:00 04/29/19 16:57 Decadron SLOW IVP 4 mg Q6HR FAITH Administration Famotidine 20 mg 04/26/19 21:00 04/29/19 09:18 Pepcid PO 20 mg BID FAITH Administration Sodium Chloride 1,000 mls @ 70 mls/hr 04/27/19 07:45 04/29/19 16:57 Normal Saline 0.9% IV Not Given .[id number] FAITH Sodium Chloride 10 ml 04/27/19 09:00 04/29/19 09:20 Flush - Normal Saline IVF Not Given Q12HR FAITH - Exam Eye: PERRL Heart: RRR, no murmur, no gallops, no rubs, normal peripheral pulses Respiratory: CTAB, no wheezes, no rales, no ronchi, normal chest expansion Gastrointestinal: soft, non-tender, non-distended, normal bowel sounds Extremities: no cyanosis, no edema Neurological: no new deficit (+ right lower extemity weakness) Hosp A/P (1) Lower extremity weakness Code(s): R29.898 - OTH SYMPTOMS AND SIGNS INVOLVING THE MUSCULOSKELETAL SYSTEM Status: Acute (2) Metastatic disease Code(s): C79.9 - SECONDARY MALIGNANT NEOPLASM OF UNSPECIFIED SITE Status: Acute (3) History of prostate cancer Code(s): Z85.46 - PERSONAL HISTORY OF MALIGNANT NEOPLASM OF PROSTATE Status: Acute (4) Hypercalcemia Code(s): E83.52 - HYPERCALCEMIA Status: Acute - Plan * Metastatic cancer- likely renal primary- MRI of the brain results were noted, * CT guided renal biopsy and Bone scan are planned for tomorrow * Hypercalcemia- due to malignancy- improved- continue IV hydration * Continue IV Decadron for metastatic lesions to the spine * Mr. Olsen would like to proceed with the renal biopsy so that he will what what his treatment options are, and make an informed decision
--- NOTE | 2019-04-29 18:29 | PDOC.FMACP ---
Advance Care Planning - Problem (1) Lower extremity weakness Status: Acute Code(s): R29.898 - OTH SYMPTOMS AND SIGNS INVOLVING THE MUSCULOSKELETAL SYSTEM (2) Metastatic disease Status: Acute Code(s): C79.9 - SECONDARY MALIGNANT NEOPLASM OF UNSPECIFIED SITE (3) History of prostate cancer Status: Acute Code(s): Z85.46 - PERSONAL HISTORY OF MALIGNANT NEOPLASM OF PROSTATE (4) Hypercalcemia Status: Acute Code(s): E83.52 - HYPERCALCEMIA - Note Summary: Advanced Care Planning was discussed. The diagnosis, prognosis and goals of care were discussed. We discussed the possible outcomes of the biopsy, and what active chemotherapy would mean. We also discussed alternative treatment such as palliative care and hospice. All questions were answered. The Palliative Care Team will be engaged to assist with completion of any outstanding forms that are needed. Time Spent (mins): 20
--- NOTE | 2019-04-29 19:29 | PRG ---
DATE OF SERVICE: 04/29/2019 I attempted to see Mr. Olsen early this afternoon. At this time, he was obtaining his renal mass biopsy. However, his was in the room and I spoke with her and gave her an update on the patient's brain MRI findings. Discussed that while the patient had no intra-axial brain metastasis, he does have metastatic disease in the calvarial area of his skull. Discussed that this was similar to the metastatic spread of disease to bone in his left shoulder. Discussed that Dr. Coronado with Urology as well as the Oncology team would discuss his treatment options further. Discussed the possibility that the patient may be able to undergo palliative radiation versus chemotherapy. The patient and his will have more information once they have been consulted by the Oncology team. Nonetheless, from a neurosurgical standpoint, there is no surgical intervention on the brain or spine that is currently advised. With regard to his significant lumbar stenosis, we have recommended interlaminar epidural steroid injections of the lumbar spine. Initially we would recommend targeting the L2-L3 level. The patient will be referred to Pain Management for injections. Again, we do not recommend neurosurgical intervention at this time. We will attempt to optimize pain control. We will begin to follow the patient from a distance at this point in time. Discussed with the patient's that his newly discovered metastatic disease originating from the kidney is the most pressing medical issue for him at this time. She states understanding. Call with any neurologic changes or other concerns. Job ID: [id number] MTDD
[2019-04-29] MEDS: Acetaminophen 325 MG TAB PO PRN (21:19)
[2019-04-29] MEDS: traMADol HCl 50 MG TAB PO PRN (21:19)
--- NOTE | 2019-04-29 23:42 | CON ---
DATE OF CONSULTATION: REASON FOR CONSULT: Metastatic disease. HISTORY OF PRESENT ILLNESS: Mr. Olsen is a pleasant 83-year-old gentleman who over the past 3 months has had progressive weakening of his right leg and pain in his hip. He had scheduled an outpatient neurosurgical consult, but was unable to tolerate the pain any further, so presented to the emergency room for an evaluation. He underwent an MRI of his lumbar and thoracic spine. It showed a 2.3 cm T12 lesion. There was also a lesion in T8, both were questionable for metastatic disease. There was bilateral pulmonary nodules and a questionable adrenal mass. He then underwent a CT of his chest, abdomen, and pelvis. There was a large 10.7 cm left renal mass contiguous with the left adrenal mass, kelly ball metastasis of the lungs. There was noted bone metastases. There was right adrenal metastasis and a possible jejunal mass. The patient had a CT-guided biopsy of the renal mass today and has undergone a nuclear med bone scan, which is currently pending. The patient has been sleeping in a chair since . He has continued to drive. He denies any weight loss. Occasional lack of appetite. Denies any hematuria. He has been started on steroids and pain management. PAST MEDICAL HISTORY: 1. Prostate cancer. 2. Chronic degenerative disease of the lumbar spine. 3. Arthritis. PAST SURGICAL HISTORY: 1. Appendectomy. 2. Radical prostatectomy. 3. Colon resection for polyp. 4. Bowel perforation repair. 5. Cataract surgery. 6. Bilateral shoulder surgery. ALLERGIES: TO NSAIDS. HOME MEDICATIONS: Tylenol p.r.n. FAMILY HISTORY: Mother had ovarian cancer. Father had prostate cancer. Sister had lung cancer. SOCIAL HISTORY: , lives with his spouse in [place], one son and a grandchild. No tobacco, alcohol, or illicit drug use. REVIEW OF SYSTEMS: A 10-point review of systems is negative except for noted in HPI. PHYSICAL EXAMINATION: VITAL SIGNS: Temperature is 97.6, pulse is 68, respiratory rate 20, blood pressure is 143/70. He is 94% on room air. GENERAL: This is a well-developed, well-nourished male, in no acute distress. HEENT: Normocephalic, atraumatic. Pupils are equal and reactive to light. NECK: Supple. CV: Regular rate and rhythm. LUNGS: Clear. ABDOMEN: Soft and nontender. EXTREMITIES: No clubbing or cyanosis. SKIN: No rash. HEMATOLOGICAL: No petechiae or purpura. NEUROLOGICAL: He has right lower extremity weakness. PERTINENT LABORATORY DATA AND X-RAYS: Current WBCs are 8.7, hemoglobin 11.3, hematocrit 32.4, platelet count is 270,000; he has 77% neutrophils, 11% lymphocytes. Sodium is 136, potassium 4.4, chloride 104, CO2 is 24, BUN is 18, creatinine 1.13, calcium is 10.8. Iron is 48, TIBC is 173, ferritin is 12/1998. Bilirubin is 0.7, AST is 30, ALT is 17, alkaline phosphatase is 92. Troponin is 0.039. Serum total protein is 6.4, albumin 3.5, globulin 2.9, B12 is 543, folate is 15, PTH is 7. PSA is less than 0.02. ASSESSMENT: 1. Large left renal and adrenal mass with bone metastases. 2. Hypercalcemia. 3. Right lower extremity weakness. DISCUSSION: The patient has been seen by the Neurosurgery team and have no surgical intervention planned. He has been started on steroids and pain medication. He has undergone a bone scan today, results are currently pending. He has received IV fluids for his calcium, which has improved from 11.6 on admission to 10.8 today. Plan dose of Zometa tomorrow. Discussed briefly with the patient and the that this is going to be advanced disease and treatment is likely to be palliative and not curative. If this is urothelial, there is a chance that he could get immunotherapy first-line that would not make him sick. He is not necessarily interested in chemotherapy at this time. We will return once final diagnosis confirmed we will return to discuss treatment options. Thank you for the consult. We will follow along. Job ID: [id number] [facility]
[2019-04-30] MEDS: Dexamethasone 4 mg/ml Vial SLOW IVP SCH ×5 (01:03→23:47)
[2019-04-30 05:28] LABS: #Lymphocytes 0.6 thou/uL (1.20-3.40); #Monocytes 0.5 thou/uL (0.11-0.59); #Neutrophils 9.7 thou/uL (1.40-6.50); %Eosinophils 0.2 % (0.0-10.0); %Lymphocytes 5.9 % (21.0-51.0); %Monocytes 4.4 % (0.0-10.0); %Neutrophils 89.5 % (42.0-75.0); Hemoglobin 10.7 g/dL (14.0-18.0); Mean Corpuscular HGB CONC 34.1 g/dL (32.0-36.0); Mean Corpuscular Hemoglobin 33.3 pg (27.0-31.0); Mean Corpuscular Volume 97.7 fL (78.0-98.0); Mean Platelet Volume 8.6 fL (7.4-10.4); Platelet Count 309 thou/uL (130-400); RBC Distribution Width 11.2 % (11.5-14.5); Red Blood Cell (RBC) Count 3.23 mill/uL (4.70-6.10); White Blood Cell (WBC) Count 10.8 thou/uL (4.8-10.8)
[2019-04-30 05:51] LABS: Anion Gap 12 mmol/L (10-20); BUN (Urea Nitrogen) 29 mg/dL (8.4-25.7); Calc. Creatinine Clearance 76 mL/min (70-130); Calcium 9.5 mg/dL (7.8-10.44); Carbon Dioxide 27 mmol/L (23-31); Chloride 107 mmol/L (98-107); Estimated GFR-MDRD 68; Glucose 133 mg/dL (83-110); Potassium 4.5 mmol/L (3.5-5.1); Sodium 141 mmol/L (136-145)
[2019-04-30] MEDS: Famotidine 20 MG TAB PO SCH ×2 (08:19→19:24)
[2019-04-30] MEDS: Sodium Chloride 0.9% 1,000 ML IV SCH ×2 (08:20→23:53)
[2019-04-30] MEDS ORDERED: Zoledronic Acid 4 MG in Sodium Chloride 0.9% 100 ML IVPB SCH (09:00)
--- NOTE | 2019-04-30 11:56 | PRG ---
DATE OF SERVICE: 04/30/2019 I came by to see Mr. Olsen. He underwent CT-guided needle biopsy yesterday. We are awaiting the pathology. I strongly suspect obviously it is renal cell carcinoma. There is no role for surgical intervention at this time. Job ID: [id number]
--- NOTE | 2019-04-30 17:02 | EKG ---
Test Reason : WEAKNESS Blood Pressure : / mmHG Vent. Rate : 074 BPM Atrial Rate : 074 BPM P-R Int : 192 ms QRS Dur : 088 ms QT Int : 384 ms P-R-T Axes : 068 057 043 degrees QTc Int : 426 ms Normal sinus rhythm Normal ECG Confirmed by MARCELINO SPENCER ([id number]), image editor ROSALIA DIAMOND ([id number]) on 04/30/2019 5:01:42 PM Referred By: TJ Confirmed By:MARCELINO SPENCER
--- NOTE | 2019-04-30 17:19 | PDOC.HOSPP ---
- Subjective Encounter Date: 04/30/19 Encounter Time: 11:00 Subjective: The patient has no significant complaints. Has some pain in his left shoulder and back, but overall well controlled. He is anxiously awaiting biopsy results. - Objective Vital Signs & Weight: Vital Signs (12 hours) Temp Pulse Resp BP Pulse Ox 04/30/19 12:00 98.3 F 67 20 128/67 97 04/30/19 08:00 96 04/30/19 07:52 97.6 F 62 22 H 126/73 96 04/30/19 05:47 97.6 F 58 L 16 129/72 94 L Weight Weight 219 lb 6.006 oz I&O: 04/29/19 04/30/19 05/01/19 06:59 06:59 06:59 Intake Total 2320 2110 Output Total 300 600 Balance 2019 1510 Result Diagrams: 04/30/19 05:08 04/30/19 05:08 Hospitalist ROS - Review of Systems Constitutional: denies: fever, chills Respiratory: denies: cough, dry - Medication Medications: Active Medications Generic Name Dose Route Start Last Admin Trade Name Freq PRN Reason Stop Dose Admin Acetaminophen 650 mg 04/26/19 17:50 04/29/19 21:19 Tylenol PO 650 mg Q4H PRN Administration Headache/Fever/Mild Pain (1-3) Dexamethasone 4 mg 04/27/19 18:00 04/30/19 11:24 Decadron SLOW IVP 4 mg Q6HR FAITH Administration Famotidine 20 mg 04/26/19 21:00 04/30/19 08:19 Pepcid PO 20 mg BID FAITH Administration Sodium Chloride 1,000 mls @ 70 mls/hr 04/27/19 07:45 04/30/19 08:20 Normal Saline 0.9% IV 1,000 mls .[id number] FAITH Administration Sodium Chloride 10 ml 04/27/19 09:00 04/30/19 08:20 Flush - Normal Saline IVF Not Given Q12HR FAITH Tramadol HCl 50 mg 04/29/19 06:47 04/29/19 21:19 Ultram PO 50 mg Q6H PRN Administration Mild-Moderate Pain (1-5) - Exam General Appearance: NAD, awake alert Eye: PERRL, anicteric sclera ENT: normocephalic atraumatic, no oropharyngeal lesions Neck: supple, symmetric, no JVD Heart: RRR, no murmur, no gallops, no rubs Respiratory: CTAB, no wheezes, no rales, no ronchi Gastrointestinal: soft, non-tender, non-distended, normal bowel sounds Extremities: no cyanosis, no clubbing, no edema Skin: normal turgor, no lesions, no rashes Neurological: cranial nerve grossly intact, normal sensation to touch, no focal deficits, no new deficit Hosp A/P - Plan MRI L-spine and T-spine: patient with T8, T12, L2, L4, S2 metastases. CT chest/abdomen/pelvis: too numerous to count pulmonary nodules throughout the lungs. Large mass in the left kidney and left adrenal gland. Scattered nodules on the left kidney and proximal left ureter which may be focally invasive metastatic disease. [place] lung mets. Osseous metastatic disease. 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 Lytic lesion in the anterior left fourth rib MRI Brain: parietal calvarial metastatic disease 4cm on the left Bone scan: multiple osseous metastases. 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 D/c zoledronic acid. On dexamethasone q6 Anemia of chronic disease - stable with Hb 10.7. - iron studies consistent with anemia of chronic disease. B12/folate normal Code status: full code
[2019-04-30] MEDS: Acetaminophen 325 MG TAB PO PRN (19:24)
[2019-04-30] MEDS: traMADol HCl 50 MG TAB PO PRN (19:24)
[2019-05-01] MEDS: Dexamethasone 4 mg/ml Vial SLOW IVP SCH ×4 (06:12→23:16)
[2019-05-01] MEDS: Famotidine 20 MG TAB PO SCH ×2 (07:59→20:40)
--- NOTE | 2019-05-01 11:07 | PRG ---
DATE OF SERVICE: 05/01/2019 This is a 15 minutes subsequent visit note, in which 15 minutes were spent reviewing the imaging record, evaluation, examination, patient formulation and plan on Robert Olsen. SUBJECTIVE: Mr. Olsen continues to endorse functional weakness in the right lower extremity. He has L2-L3 stenosis, but unfortunately more importantly has been found to have multifocal metastatic disease related to renal cell carcinoma. I would recommend rehabilitation and not surgery. One option would be L2-L3 interlaminar epidural steroid injection to try and control his right L3 mediated pain and perhaps this will help in regard to his functional weakness. Job ID: [id number]
--- NOTE | 2019-05-01 12:19 | PDOC.HOSPP ---
- Subjective Encounter Date: 05/01/19 Encounter Time: 11:00 Subjective: The patient is doing okay. Has mild left shoulder pain and pain on his right leg, but pain is controlled with his medications. He has had no BM in two days He did feel short of breath with PT today - Objective Vital Signs & Weight: Vital Signs (12 hours) Temp Pulse Resp BP BP Pulse Ox 05/01/19 11:47 97.8 F 59 L 16 149/79 H 97 05/01/19 08:00 96 05/01/19 07:56 97.5 F L 59 L 16 137/74 96 Weight Weight 219 lb 6.006 oz I&O: 04/30/19 05/01/19 05/02/19 06:59 06:59 06:59 Intake Total 2110 2745 Output Total 600 100 Balance 1510 2645 Result Diagrams: 04/30/19 05:08 04/30/19 05:08 Hospitalist ROS - Review of Systems Constitutional: denies: fever, chills - Medication Medications: Active Medications Generic Name Dose Route Start Last Admin Trade Name Freq PRN Reason Stop Dose Admin Acetaminophen 650 mg 04/26/19 17:50 04/30/19 19:24 Tylenol PO 650 mg Q4H PRN Administration Headache/Fever/Mild Pain (1-3) Dexamethasone 4 mg 04/27/19 18:00 05/01/19 06:12 Decadron SLOW IVP 4 mg Q6HR FAITH Administration Famotidine 20 mg 04/26/19 21:00 05/01/19 07:59 Pepcid PO 20 mg BID FAITH Administration Sodium Chloride 1,000 mls @ 70 mls/hr 04/27/19 07:45 04/30/19 23:53 Normal Saline 0.9% IV 1,000 mls .[id number] FAITH Administration Sodium Chloride 10 ml 04/27/19 09:00 05/01/19 08:00 Flush - Normal Saline IVF 10 ml Q12HR FAITH Administration Tramadol HCl 50 mg 04/29/19 06:47 04/30/19 19:24 Ultram PO 50 mg Q6H PRN Administration Mild-Moderate Pain (1-5) - Exam General Appearance: NAD, awake alert Eye: PERRL, anicteric sclera ENT: normocephalic atraumatic Neck: no JVD Heart: RRR, no murmur, no gallops, no rubs Respiratory: CTAB, no wheezes, no rales, no ronchi Gastrointestinal: soft, non-tender, non-distended, normal bowel sounds Extremities: no cyanosis, no clubbing, no edema Extremities - other findings: tenderness left shoulder and right femur Skin: normal turgor, no lesions, no rashes Neurological: cranial nerve grossly intact, normal sensation to touch, no focal deficits, no new deficit Musculoskeletal: normal strength (in all four extremities) Hosp A/P - Plan MRI L-spine and T-spine: patient with T8, T12, L2, L4, S2 metastases. CT chest/abdomen/pelvis: too numerous to count pulmonary nodules throughout the lungs. Large mass in the left kidney and left adrenal gland. Scattered nodules on the left kidney and proximal left ureter which may be focally invasive metastatic disease. [place] lung mets. Osseous metastatic disease. 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 Lytic lesion in the anterior left fourth rib MRI Brain: parietal calvarial metastatic disease 4cm on the left Bone scan: multiple osseous metastases. 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 D/c zoledronic acid. On dexamethasone q6 #Anemia of chronic disease - stable with Hb 10.7. - iron studies consistent with anemia of chronic disease. B12/folate normal Dispo: pending biopsy results Code status: full code
[2019-05-01] MEDS: Sodium Chloride 0.9% 1,000 ML IV SCH ×2 (13:53→23:16)
[2019-05-01] MEDS: Polyethylene Glycol 3350 17 GM Packet PO SCH (13:53)
[2019-05-01] MEDS: traMADol HCl 50 MG TAB PO PRN (23:15)
[2019-05-02] MEDS: Dexamethasone 4 mg/ml Vial SLOW IVP SCH ×4 (05:14→23:34)
[2019-05-02] MEDS: Famotidine 20 MG TAB PO SCH ×2 (08:14→20:48)
[2019-05-02] MEDS: Polyethylene Glycol 3350 17 GM Packet PO SCH (08:14)
[2019-05-02] MEDS ORDERED: Lidocaine 1% PF 5 ML VIAL ONE (11:55)
[2019-05-02] MEDS ORDERED: Iopamidol-M 300 61% 15 ML VIAL ONE (11:55)
[2019-05-02] MEDS ORDERED: Bupivacaine 0.25% 10 ML VIAL ONE (11:55)
[2019-05-02] MEDS ORDERED: Dexamethasone 10 MG/ML VIAL ONE (11:55)
--- NOTE | 2019-05-02 15:22 | PDOC.HOSPP ---
- Subjective Encounter Date: 05/02/19 Encounter Time: 11:05 Subjective: Mr. Olsen is an 83 y/o man with a new renal mass and metastatic disease. 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 Today the patient denies having any new complaints. He reports continued pain in the left shoulder at the location of one metastasis. The patient received a L2-L3 epidural steroid injection today and denies any associated pain. - Objective Vital Signs & Weight: Vital Signs (12 hours) Temp Pulse Resp BP Pulse Ox 05/02/19 08:00 95 05/02/19 07:13 97.8 F 53 L 18 154/79 H 95 Weight Weight 219 lb 6.006 oz I&O: 05/01/19 05/02/19 05/03/19 06:59 06:59 06:59 Intake Total 2745 2690 480 Output Total 100 950 Balance 2645 1740 480 Result Diagrams: 04/30/19 05:08 04/30/19 05:08 Hospitalist ROS - Review of Systems Constitutional: denies: fever, chills, sweats Eyes: denies: pain Respiratory: denies: cough, shortness of breath Cardiovascular: denies: chest pain, palpitations Gastrointestinal: reports: constipation. denies: nausea, abdominal pain Genitourinary: denies: dysuria Musculoskeletal: reports: shoulder pain (left) Neurological: denies: weakness All other systems reviewed; all pertinent +/- noted in HPI/Subj - Medication Medications: Active Medications Generic Name Dose Route Start Last Admin Trade Name Freq PRN Reason Stop Dose Admin Acetaminophen 650 mg 04/26/19 17:50 04/30/19 19:24 Tylenol PO 650 mg Q4H PRN Administration Headache/Fever/Mild Pain (1-3) Dexamethasone 4 mg 04/27/19 18:00 05/02/19 12:17 Decadron SLOW IVP 4 mg Q6HR FAITH Administration Famotidine 20 mg 04/26/19 21:00 05/02/19 08:14 Pepcid PO 20 mg BID FAITH Administration Sodium Chloride 1,000 mls @ 70 mls/hr 04/27/19 07:45 05/01/19 23:16 Normal Saline 0.9% IV 1,000 mls .[id number] FAITH Administration Polyethylene Glycol 17 gm 05/01/19 09:00 05/02/19 08:14 Miralax PO 17 gm DAILY FAITH Administration Sodium Chloride 10 ml 04/27/19 09:00 05/02/19 08:15 Flush - Normal Saline IVF 10 ml Q12HR FAITH Administration Tramadol HCl 50 mg 04/29/19 06:47 05/01/19 23:15 Ultram PO 50 mg Q6H PRN Administration Mild-Moderate Pain (1-5) - Exam Eye: PERRL ENT: normocephalic atraumatic Neck: supple, no JVD Heart: RRR, no murmur, no gallops, no rubs Respiratory: CTAB, no wheezes, no rales, no ronchi Gastrointestinal: soft, non-tender, non-distended Extremities: no edema Musculoskeletal: normal tone, normal strength Psychiatric: normal affect, normal behavior, A&O x 3 Hosp A/P - Plan This is an 83 year old male who presented with left shoulder pain and right leg weakness, incidentally found to have metastatic lesions, newly discovered with lymphoma #Diffuse Large B-cell Lymphoma Patient consulted with oncology today regarding diagnosis of Diffuse Large B- cell Lymphoma. Oncology to follow with patient tomorrow regarding chemotherapy/ other treatment options. Patient has also spoken with palliative care and will make decision regarding care plan. Continue pain management prn. #Constipation - will continue miralax Hypercalcemia- resolved. D/c zoledronic acid. On dexamethasone q6 #Anemia of chronic disease - stable with Hb 10.7. - iron studies consistent with anemia of chronic disease. B12/folate normal Code status: full code I agree with assessment and findings of MS3. Patient's pain is well controlled , he did have a bowel movement this morning. Pathology results came back as lymphoma. Gayatri Moralez discussed chemotherapy with them. Plan for oncology to further discuss in the am
--- NOTE | 2019-05-02 15:29 | CT ---
EXAM: CT Renal Perc Biopsy PROVIDED CLINICAL HISTORY: Large left renal mass with metastatic disease. COMPARISON: CT abdomen on 04/27/2019. TECHNIQUE: The procedure including the risks and complications were explained to the patient, and informed conse nt was obtained. General endotracheal anesthesia was performed for this examination by the anesthesiology department. Patient was placed in the prone position on the CT scan table. Noncontrast CT scan was obtained to the level of the large left renal mass with grid localizer in place. An area was marked and then meticulously prepped and draped in usual sterile fashion. Skin and subcutaneous tissues were infiltrated with 1% lidocaine for local anesthesia at the intended puncture site. Small skin incision was made. A 17-gauge guide needle was advanced followed by axial noncontrasted CT images. This was repeated until the needle was placed within the most posterio r margin of the left renal mass. Utilizing coaxial technique, a total of [id number] core needle biopsy specimens were obtained. Abnormal cells were obtained on initial biopsy. 2 additional biopsy s pecimens were obtained. The inner stylette was replaced, and the needle was removed. Hemostasis was achieved with direct pressure. Follow-up noncontrasted CT scan through level of biopsy demonstrates n o perinephric fluid or hematoma adjacent to site of biopsy. Dry sterile dressing was placed at biopsy site. Patient tolerated the procedure well and without imme diate complication. IMPRESSION: Technically successful CT-guided percutaneous biopsy of large left renal mass. Final pathology result s are currently pending. Transcribed Date/Time: 05/02/2019 3:28 PM
[2019-05-02] MEDS: Sodium Chloride 0.9% 1,000 ML IV SCH (16:16)
--- NOTE | 2019-05-02 16:24 | PDOC.MOPN ---
Interval History: pain block today. States unable to walk. - Vital Signs Vital Signs: Vital Signs (12 hours) Temp Pulse Resp BP Pulse Ox 05/02/19 08:00 95 05/02/19 07:13 97.8 F 53 L 18 154/79 H 95 Weight Weight 219 lb 6.006 oz - Physical Exam General: Alert, Oriented x3, No acute distress HEENT: Atraumatic, PERRLA, EOMI, Mucous membr. moist/pink Lungs: Clear to auscultation, Normal air movement Cardiovascular: Regular rate, Normal S1, Normal S2, No murmurs, Gallops, Rubs Abdomen: Normal bowel sounds, Soft, No tenderness, No hepatospenomegaly, No masses Extremities: Other Skin: No rashes, No breakdown, No significant lesion Neurological: Normal speech - Labs Result Diagrams: 04/30/19 05:08 04/30/19 05:08 Lab results: Laboratory Results - last 24 hr 04/29/19 13:50: Flow Cytometry Interp Status: lab reviewed by nd - Pathology Pathology: Per Dr. Rae, Diffuse large b-cell lymphoma A/P - Problem (1) Diffuse large B cell lymphoma Current Visit: Yes Code(s): C83.30 - DIFFUSE LARGE B-CELL LYMPHOMA, UNSPECIFIED SITE Status: Acute - Plan Plan: discussed diagnosis, chemo with patient and . MD to follow tomorrow to discuss chemo
--- NOTE | 2019-05-02 17:42 | CON ---
DATE OF CONSULTATION: CONSULTING PHYSICIAN: Dr. Lee. REASON FOR CONSULTATION: Right leg pain/radicular pain. HISTORY OF PRESENT ILLNESS: The patient is an 83-year-old white gentleman with a recent diagnosis of metastatic renal cell carcinoma with visceral bony, pulmonary, and brain metastases. He also has stenosis at L3 foramen and L2-3 and L3-4. He has right L3 type radicular symptoms that are problematic. He has been seen by Neurosurgery, Dr. Lee. No neurosurgical treatment is recommended. The patient was referred to us for consideration of L3 transforaminal injection to improve his back and radicular symptoms. This pain appears to be from spinal stenosis and not from direct cause of metastatic disease. REVIEW OF SYSTEMS: Positive for also some left arm pain. Negative for nausea, vomiting, fever, or chills and negative with exception of what is mentioned in the history of present illness. ALLERGIES: ASPIRIN AND NSAID, ANAPHYLAXIS. PAST MEDICAL HISTORY: Significant for prostate cancer, degenerative disk disease, lumbar stenosis, and arthritis. SURGICAL HISTORY: Appendectomy many years ago, radical prostatectomy, cataract surgery, partial colectomy, and rotator cuff surgeries. FAMILY HISTORY: Cancer in his parents. SOCIAL HISTORY: He is currently . His is alive and lives with the patient. He is a full code. PHYSICAL EXAMINATION: GENERAL: The patient is alert and oriented. He is pleasant, not in any acute distress. HEAD AND NECK: Unremarkable. CV: Regular rate and rhythm. CHEST: No shortness of breath. No pain to palpation around the chest. ABDOMEN: Benign. BACK: Reveals some mild palpable paraspinous tenderness. There is extension discomfort. Straight leg raise was negative bilaterally. He has some slight flexion weakness on the right side, otherwise intact. IMPRESSION: 1. Metastatic renal cell carcinoma. 2. Right-sided radicular pain, likely L3 from stenosis at the L3 foramen on the right side, but also he has some central canal stenosis at L3 as well. We will proceed with a right L3 and L4 transforaminal today in the office. Follow up as needed. Job ID: [id number]
[2019-05-02 17:47] LABS: Phosphorus 2.4 mg/dL (2.3-4.7)
[2019-05-02 17:49] LABS: Magnesium 1.8 mg/dL (1.6-2.6); Uric Acid 4.9 mg/dL (3.5-7.2)
[2019-05-02] MEDS: HYDROcodone/Acetaminophen 5/325 mg Tablet PO PRN (20:49)
[2019-05-03 05:42] LABS: Hemoglobin 11.6 g/dL (14.0-18.0); Mean Corpuscular Hemoglobin 32.1 pg (27.0-31.0); Mean Corpuscular Volume 97.3 fL (78.0-98.0); Mean Platelet Volume 8.7 fL (7.4-10.4); Platelet Count 292 thou/uL (130-400); RBC Distribution Width 11.3 % (11.5-14.5); Red Blood Cell (RBC) Count 3.62 mill/uL (4.70-6.10); White Blood Cell (WBC) Count 9.2 thou/uL (4.8-10.8)
[2019-05-03 06:10] LABS: Anion Gap 10 mmol/L (10-20); BUN (Urea Nitrogen) 27 mg/dL (8.4-25.7); Calc. Creatinine Clearance 100 mL/min (70-130); Calcium 8.5 mg/dL (7.8-10.44); Carbon Dioxide 26 mmol/L (23-31); Chloride 107 mmol/L (98-107); Estimated GFR-MDRD Greater than 90; Glucose 142 mg/dL (83-110); Potassium 4.3 mmol/L (3.5-5.1); Sodium 139 mmol/L (136-145)
[2019-05-03] MEDS: Dexamethasone 4 mg/ml Vial SLOW IVP SCH ×4 (06:17→23:24)
[2019-05-03] MEDS: Sodium Chloride 0.9% 1,000 ML IV SCH ×2 (06:17→17:28)
[2019-05-03] MEDS: HYDROcodone/Acetaminophen 5/325 mg Tablet PO PRN (06:23)
[2019-05-03] MEDS: Famotidine 20 MG TAB PO SCH ×2 (07:50→20:47)
[2019-05-03] MEDS: Polyethylene Glycol 3350 17 GM Packet PO SCH (07:50)
--- NOTE | 2019-05-03 08:35 | PDOC.MOPN ---
Interval History: Pt still c/o pain, not improved yet from injection yesterday. I discussed diagnosis, prognosis, and treatment of DLBCL with the patient, his , and granddaughter. He has not decided on treatment yet. - Vital Signs Vital Signs: Vital Signs (12 hours) Temp Pulse Resp BP Pulse Ox 05/03/19 07:19 97.8 F 57 L 19 146/67 H 96 Weight Weight 219 lb 6.006 oz - Physical Exam General: Alert, Oriented x3, Cooperative HEENT: Atraumatic, EOMI Lungs: Normal air movement Neurological: Cranial nerves 3-12 NL Psych/Mental Status: Mood NL - Labs Result Diagrams: 05/03/19 05:24 05/03/19 05:24 Lab results: Laboratory Results - last 24 hr 05/03/19 05:24: WBC 9.2, RBC 3.62 L, Hgb 11.6 L, Hct 35.2 L, MCV 97.3, MCH 32.1 H, MCHC 33.0, RDW 11.3 L, Plt Count 292, MPV 8.7 05/03/19 05:24: Sodium 139, Potassium 4.3, Chloride 107, Carbon Dioxide 26, Anion Gap 10, BUN 27 H, Creatinine 0.80, Estimated GFR (MDRD) Greater than 90, Glucose 142 H, Calcium 8.5 05/02/19 17:09: Phosphorus 2.4 05/02/19 17:09: Lactate Dehydrogenase 231 H 05/02/19 17:09: Uric Acid 4.9, Magnesium 1.8 04/29/19 13:50: Flow Cytometry Interp A/P - Problem (1) Diffuse large B cell lymphoma Current Visit: Yes Code(s): C83.30 - DIFFUSE LARGE B-CELL LYMPHOMA, UNSPECIFIED SITE Status: Acute - Plan Plan: Recommend R-mini-CHOP with switch to full-dose R-CHOP if patient tolerates well. He will require a BMBx and LP to rule out marrow and CSF involvement, and a mediport implant. These are only required if he wants treatment of his disease , and, if not, then would recommend hospice. Mr. Olsen will decide later today if he wants to pursue treatment.
--- NOTE | 2019-05-03 14:14 | PDOC.EVN ---
Event Note - Event Note Event Note: patient has agreed to proceed with chemo Plan LP, Bone marrow biopsy, mediport transfer to onc likely chemo on
--- NOTE | 2019-05-03 15:17 | RAD ---
RIGHT SHOULDER 3 VIEWS: HISTORY: Right shoulder pain with abduction, history of lymphoma. FINDINGS: Three views of the right shoulder demonstrate marked AC joint arthrosis. Somewhat narrowed humeral a cromial space concerning for rotator cuff injury or insufficiency. Surgical anchors are noted in the region of the greater tuberosity. Evidence for right pleural effusion or pleural thickening. No ac pechanga fracture or dislocation. IMPRESSION: Severe arthrosis and degenerative changes without fracture or dislocation. Evidence for right pleura l effusion, small. POS: [facility]
--- NOTE | 2019-05-03 15:51 | PDOC.HOSPP ---
- Subjective Encounter Date: 05/03/19 Encounter Time: 07:00 Subjective: THe patient's pathology positive for B cell lymphoma. Still unclear on whether he wanted chemotherapy or not. Upon discussion with Dr. Quevedo, patient would survive only weeks without chemotherapy, therefore patient was agreeable to chemotherapy He complains of some right shoulder pain today, thinks he pulled his muscle while lifting his arm - Objective Vital Signs & Weight: Vital Signs (12 hours) Temp Pulse Resp BP Pulse Ox 05/03/19 08:00 96 05/03/19 07:19 97.8 F 57 L 19 146/67 H 96 Weight Weight 219 lb 6.006 oz I&O: 05/02/19 05/03/19 05/04/19 06:59 06:59 06:59 Intake Total 2690 2180 480 Output Total 950 150 Balance 1740 2030 480 Result Diagrams: 05/03/19 05:24 05/03/19 05:24 Hospitalist ROS - Review of Systems Constitutional: denies: fever, chills Respiratory: denies: cough, shortness of breath - Medication Medications: Active Medications Generic Name Dose Route Start Last Admin Trade Name Freq PRN Reason Stop Dose Admin Acetaminophen 650 mg 04/26/19 17:50 04/30/19 19:24 Tylenol PO 650 mg Q4H PRN Administration Headache/Fever/Mild Pain (1-3) Hydrocodone Bitart/Acetaminophen 1 tab 04/29/19 06:47 05/03/19 06:23 Elba 5/325 PO 1 tab Q4H PRN Administration Moderate to Severe Pain (6-10) Dexamethasone 4 mg 04/27/19 18:00 05/03/19 11:31 Decadron SLOW IVP 4 mg Q6HR FAITH Administration Famotidine 20 mg 04/26/19 21:00 05/03/19 07:50 Pepcid PO 20 mg BID FAITH Administration Sodium Chloride 1,000 mls @ 70 mls/hr 04/27/19 07:45 05/03/19 06:17 Normal Saline 0.9% IV 1,000 mls .[id number] FAITH Administration Polyethylene Glycol 17 gm 05/01/19 09:00 05/03/19 07:50 Miralax PO 17 gm DAILY FAITH Administration Sodium Chloride 10 ml 04/27/19 09:00 05/03/19 07:52 Flush - Normal Saline IVF Not Given Q12HR FAITH Tramadol HCl 50 mg 04/29/19 06:47 05/01/19 23:15 Ultram PO 50 mg Q6H PRN Administration Mild-Moderate Pain (1-5) - Exam General Appearance: NAD, awake alert Eye: PERRL, anicteric sclera ENT: normocephalic atraumatic, no oropharyngeal lesions Neck: no JVD Heart: RRR, no murmur, no gallops, no rubs Respiratory: CTAB, no wheezes, no rales, no ronchi Gastrointestinal: soft, non-tender, non-distended, normal bowel sounds Extremities: no cyanosis, no clubbing, no edema Musculoskeletal - other findings: right shoulder tenderness. Pain with abducting right arm Psychiatric: normal affect, normal behavior, A&O x 3, oriented to person Hosp A/P - Plan This is an 83 year old male who presented with left shoulder pain and right leg weakness, incidentally found to have metastatic lesions, newly discovered with lymphoma #Diffuse Large B-cell Lymphoma - Patient consulted with oncology today regarding diagnosis of Diffuse Large B- cell Lymphoma. - needs RCHOP for 6 cycles - plan for LP today to rule out CSF involvement - surgery consult for mediport placement - bone marrow biopsy to be scheduled for tomorrow per oncology #Constipation - will continue miralax Hypercalcemia- resolved. D/c zoledronic acid. On dexamethasone q6 #Anemia of chronic disease - stable with Hb 10.7. - iron studies consistent with anemia of chronic disease. B12/folate normal Code status: full code
--- NOTE | 2019-05-03 20:50 | CON ---
DATE OF CONSULTATION: 05/03/2019 CONSULTING PHYSICIAN: Gayatri Moralez NP REASON FOR CONSULTATION: Metastatic lymphoma. HISTORY OF PRESENT ILLNESS: The patient is an 83-year-old pleasant gentleman. He was admitted to the hospital on April 26 with complaints of right hip and leg pain and weakness. He has subsequently been found to have evidence of metastatic lymphoma. 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 He also has evidence of metastatic disease to bone. He has elected to proceed with chemotherapy after discussing options with Oncology and I am consulted this time for MediPort placement for chemotherapy administration. PAST MEDICAL HISTORY: 1. Prostate cancer. 2. Degenerative disk disease of lumbar spine. 3. Arthritis. PAST SURGICAL HISTORY: 1. Appendectomy. 2. Radical prostatectomy. 3. Colon resection for prostate. 4. Cataract surgery. 5. Bilateral shoulder surgery. 6. Bilateral carpal tunnel surgery. ALLERGIES: NONSTEROIDAL MEDICATIONS. HOME MEDICATIONS: He takes no prescription medications and uses Tylenol p.r.n. PRIMARY CARE PHYSICIAN: Rajendra Hunter MD PERSONAL AND SOCIAL HISTORY: He is and is present at bedside. They live in [place]. He is retired from working for the [employer]. He has a son and a grandchild. He does not smoke nor drink alcohol. REVIEW OF SYSTEMS: Otherwise unremarkable. FAMILY HISTORY: Noncontributory. PHYSICAL EXAMINATION: VITAL SIGNS: Temperature is 98.1, pulse 63, blood pressure 146/67. GENERAL: He is a well-developed, well-nourished, pleasant white male, resting in bed, in no acute distress. He is alert and oriented x3. HEAD, EYES, EARS, NOSE, AND THROAT: Unremarkable. NECK: Supple without mass or tenderness. LUNGS: Clear to auscultation throughout. CARDIAC: Regular rate and rhythm without murmur. ABDOMEN: Soft, nontender, and nondistended. EXTREMITIES: Unremarkable. ASSESSMENT: Patient with metastatic lymphoma. PLAN: Chemotherapy per Oncology. I have recommended MediPort placement for chemotherapy administration. I have discussed the operation in detail with the patient and his . They understand and agreed to proceed. His surgery is being scheduled for tomorrow. Job ID: [id number]
[2019-05-04] MEDS: HYDROcodone/Acetaminophen 5/325 mg Tablet PO PRN (02:39)
[2019-05-04] MEDS: Dexamethasone 4 mg/ml Vial SLOW IVP SCH ×4 (05:38→23:44)
[2019-05-04] MEDS: Sodium Chloride 0.9% 1,000 ML IV SCH ×2 (05:39→11:28)
[2019-05-04] MEDS: Famotidine 20 MG TAB PO SCH ×2 (08:49→20:08)
[2019-05-04] MEDS ORDERED: Sodium Bicarbonate 2.5 MEQ/5 ML VIAL ONE (08:50)
[2019-05-04] MEDS ORDERED: Midazolam HCl 2 mg/2 ml Vial ONE (08:51)
[2019-05-04] MEDS ORDERED: Fentanyl 100 MCG/2 ML VIAL ONE ×2 (08:51→12:41)
[2019-05-04] MEDS: Polyethylene Glycol 3350 17 GM Packet PO SCH (08:53)
--- NOTE | 2019-05-04 10:23 | PDOC.MOPN ---
Interval History: Patient having procedure done, spoke with - Vital Signs Vital Signs: Vital Signs (12 hours) Temp Pulse Resp BP Pulse Ox 05/04/19 08:40 96 05/04/19 07:40 98.1 F 63 20 164/68 H 96 05/04/19 04:00 98.0 F 68 20 156/75 H 96 05/03/19 23:56 98.0 F 66 20 158/72 H 95 Weight Weight 219 lb 6.006 oz - Physical Exam General: Alert, Oriented x3, No acute distress Neurological: Normal speech - Labs Result Diagrams: 05/03/19 05:24 05/03/19 05:24 Lab results: Laboratory Results - last 24 hr 05/04/19 04:22: POC Glucose 179 H Status: lab reviewed by me A/P - Problem (1) Diffuse large B cell lymphoma Current Visit: Yes Code(s): C83.30 - DIFFUSE LARGE B-CELL LYMPHOMA, UNSPECIFIED SITE Status: Acute - Plan Plan: LP/BM today, mediport this pm. Will transfer to onc later today or in am anticipate chemo on or Thursday
[2019-05-04 11:12] LABS: CSF Source CSF; Clarity Clear (Clear)
[2019-05-04 11:13] LABS: RBC Count - Manual 3 /cumm (None Seen); Tube # 3; WBC/NonHematics Count - Manual 0 /cumm (0-5)
[2019-05-04] MEDS ORDERED: Ondansetron PF 4 MG/2 ML Vial ONE (11:39)
[2019-05-04] MEDS ORDERED: Lidocaine 1% PF 5 ML VIAL ONE (11:39)
[2019-05-04] MEDS ORDERED: PROPOFOL 200 MG/20 ML VIAL ONE (11:39)
--- NOTE | 2019-05-04 11:53 | CT ---
CT GUIDED RIGHT ILIAC BONE MARROW ASPIRATION AND BIOPSY: CLINICAL HISTORY: B-cell lymphoma. PROCEDURE: The procedure including the risks and complications were explained to the patient, and informed conse nt was obtained. The patient was placed on the CT scan table in the prone position. Noncontrasted CT images were obtained through the pelvis. An area was marked overlying the RIGHT yesenia c bone, and the area was meticulously prepped and draped in usual sterile fashion. The skin and subcutaneous tissues were infiltrated with buffered 1% lidocaine for local anesthesia. After a small skin incision was made, an 11-gauge needle was advanced and positioning was confirmed w ith axial CT images. Approximately 8 milliliters of bone marrow aspirate was obtained. The needle was then further advanced, and a bone marrow biopsy was performed. The needle was removed, and hemost asis was achieved with direct pressure. The patient tolerated the procedure well and without immediate complication. The patient was transported to radiology nurses holding area for further emanuel toring prior to discharge. IMPRESSION: Technically successful percutaneous bone marrow aspiration and biopsy. Pathology results are pending.
--- NOTE | 2019-05-04 12:07 | CT ---
PROCEDURE: CT guided lumbar puncture PROVIDED CLINICAL HISTORY: B-cell lymphoma TECHNIQUE: The procedure including the risks and complications were explained to the patient, and informed conse nt was obtained. The patient was placed on the CT scan table in the prone position. Limited noncontrasted CT scan was obtained through the level of the lumbar spine. An area overlying the L3-4 level was marked, and the area was meticulously prepped and draped in usual sterile fashion. The skin and subcutaneous tissues were infiltrated with buffered 1% lidocaine for local anesthesia. A 22- gauge spinal needle was advanced followed by axial noncontrasted CT images. This was repeated until the tip of the needle was placed in the central spinal canal. The inner stylette of the needle was re moved, and there is a return of clear cerebral spinal fluid. The patient was placed in a left anterior oblique position to increase flow rate from the needle. Approximately 4 mL of clear cerebral spinal fluid was collected. The needle was replaced, and hemostasis was achieved with direct pressure. Patient tolerated the procedure well and without immediate complication. IMPRESSION: Technically successful lumbar puncture.
[2019-05-04] MEDS ORDERED: Bupivacaine 0.25% HCL 30 ML VIAL ONE (12:41)
[2019-05-04] MEDS ORDERED: Lidocaine 1% w/Epinephrine 1:100K 20 ML VIAL ONE (12:41)
[2019-05-04] MEDS ORDERED: Ondansetron HCl/PF 4 MG/2 ML Vial IVP PRN (14:27)
[2019-05-04] MEDS ORDERED: Promethazine HCl 25 MG/ML VIAL IM PRN (14:27)
[2019-05-04] MEDS ORDERED: Promethazine HCl 25 MG/ML VIAL SLOW IVP PRN (14:27)
--- NOTE | 2019-05-04 16:00 | RAD ---
PORTABLE CHEST: 05/04/19 HISTORY: Port placement. Heart size within normal limits. The pulmonary nodules noted on previous CT are very difficult to olvin reciate on this plain film. Right sided Mediport catheter is present. The catheter tip overlies the s uperior vena cava. I see no signs of pneumothorax. There is increased density in the left base sugges ting some left sided effusion with atelectasis versus infiltrate. IMPRESSION: Placement of a right sided Mediport catheter. No signs of pneumothorax. Increased density in the left base suggesting some atelectasis or infiltrate with what appears to be some small effusion. POS: TPC
--- NOTE | 2019-05-04 17:31 | PDOC.HOSPP ---
- Subjective Encounter Date: 05/04/19 Encounter Time: 15:00 Subjective: CC: lymphoma The patient is doing well. His right shoulder still hurts some but is better. No pain anywhere else. He got lumbar puncture done today. He also had mediport placed and bone marrow biopsy. He is exhausted. Got up with PT today to stand. - Objective Vital Signs & Weight: Vital Signs (12 hours) Temp Pulse Resp BP BP Pulse Ox 05/04/19 16:39 97.6 F 56 L 20 149/66 H 96 05/04/19 15:20 97.3 F L 67 16 164/74 H 95 05/04/19 11:25 97.5 F L 70 20 163/74 H 97 05/04/19 09:00 98.1 F 65 16 164/77 H 95 05/04/19 08:40 96 05/04/19 07:40 98.1 F 63 20 164/68 H 96 Weight Weight 219 lb 6.006 oz I&O: 05/03/19 05/04/19 05/05/19 06:59 06:59 06:59 Intake Total 2180 1970 Output Total 150 200 Balance 2030 1770 Result Diagrams: 05/03/19 05:24 05/03/19 05:24 Additional Labs: Accuchecks 05/04/19 05/04/19 16:47 04:22 POC Glucose 140 H 179 H Hospitalist ROS - Review of Systems Constitutional: denies: fever, chills - Medication Medications: Active Medications Generic Name Dose Route Start Last Admin Trade Name Freq PRN Reason Stop Dose Admin Acetaminophen 650 mg 04/26/19 17:50 04/30/19 19:24 Tylenol PO 650 mg Q4H PRN Administration Headache/Fever/Mild Pain (1-3) Hydrocodone Bitart/Acetaminophen 1 tab 04/29/19 06:47 05/04/19 02:39 [place] 5/325 PO 1 tab Q4H PRN Administration Moderate to Severe Pain (6-10) Dexamethasone 4 mg 04/27/19 18:00 05/04/19 17:22 Decadron SLOW IVP 4 mg Q6HR FAITH Administration Famotidine 20 mg 04/26/19 21:00 05/04/19 08:49 Pepcid PO 20 mg BID FAITH Administration Sodium Chloride 1,000 mls @ 70 mls/hr 04/27/19 07:45 05/04/19 11:28 Normal Saline 0.9% IV 1,000 mls .[id number] FAITH Administration Polyethylene Glycol 17 gm 05/01/19 09:00 05/04/19 08:53 Miralax PO Not Given DAILY FAITH Sodium Chloride 10 ml 04/27/19 09:00 05/04/19 08:53 Flush - Normal Saline IVF Not Given Q12HR FAITH Tramadol HCl 50 mg 04/29/19 06:47 05/01/19 23:15 Ultram PO 50 mg Q6H PRN Administration Mild-Moderate Pain (1-5) - Exam General Appearance: NAD, awake alert Eye: PERRL, anicteric sclera ENT: normocephalic atraumatic, no oropharyngeal lesions Neck: no JVD Heart: RRR, no murmur, no gallops, no rubs Respiratory: CTAB, no wheezes, no rales, no ronchi Gastrointestinal: soft, non-tender, non-distended, normal bowel sounds Extremities: no cyanosis, no clubbing, no edema Hosp A/P - Plan This is an 83 year old male who presented with left shoulder pain and right leg weakness, incidentally found to have metastatic lesions, newly discovered with lymphoma #Diffuse Large B-cell Lymphoma - oncology consulted, needs RCHOP for 6 cycles - LP cytology pending to rule out CSF involvement. No signs of infection currently - s/p mediport placement today - bone marrow biopsy done today as well - chemotherapy planned for tomorrow, possibly transfer to oncology floor #Constipation - will continue miralax Hypercalcemia- resolved. D/c zoledronic acid. On dexamethasone q6 #Anemia of chronic disease - stable with Hb 10.7. - iron studies consistent with anemia of chronic disease. B12/folate normal Code status: full code
[2019-05-04] MEDS ORDERED: Heparin 5,000 UNITS/ML VIAL SC SCH ×2 (17:45→21:00)
[2019-05-04] MEDS ORDERED: Polyethylene Glycol 3350 17 GM Packet PO SCH (18:45)
[2019-05-04] MEDS: traMADol HCl 50 MG TAB PO PRN (20:08)
[2019-05-05] MEDS: Sodium Chloride 0.9% 1,000 ML IV SCH ×2 (01:27→05:22)
[2019-05-05] MEDS: Dexamethasone 4 mg/ml Vial SLOW IVP SCH ×4 (05:21→23:31)
[2019-05-05] MEDS: traMADol HCl 50 MG TAB PO PRN (09:02)
[2019-05-05] MEDS: Famotidine 20 MG TAB PO SCH ×2 (09:02→20:23)
[2019-05-05] MEDS: Polyethylene Glycol 3350 17 GM Packet PO SCH (09:06)
[2019-05-05] MEDS: Heparin 5,000 UNITS/ML VIAL SC SCH ×3 (09:07→20:22)
[2019-05-05] MEDS: Lidocaine 5% Patch TD SCH (11:47)
[2019-05-05] MEDS ORDERED: Rituximab 100 MG in Sodium Chloride 0.9% 100 ML IVPB SCH (13:45)
[2019-05-05] MEDS ORDERED: diphenhydrAMINE 50 MG in Sodium Chloride 0.9% 50 ML IVPB PRN (13:57)
[2019-05-05] MEDS ORDERED: Acetaminophen 500 MG TAB PO PRN (13:59)
[2019-05-05] MEDS ORDERED: DOXORUBICIN IVPB SCH (14:00)
[2019-05-05] MEDS ORDERED: Palonosetron HCl 0.25 MG in Sodium Chloride 0.9% 50 ML IVPB SCH (14:00)
[2019-05-05] MEDS ORDERED: CYCLOPHOSPHAMIDE IVPB SCH ×2 (14:00→16:30)
[2019-05-05] MEDS ORDERED: SODIUM CHLORIDE 0.9% IVPB SCH ×4 (14:00→16:30)
[2019-05-05] MEDS ORDERED: Rituximab 500 MG, Rituximab 200 MG in Sodium Chloride 0.9% 500 ML IVPB SCH (14:00)
[2019-05-05] MEDS ORDERED: predniSONE 50 MG TAB PO SCH (14:00)
[2019-05-05] MEDS ORDERED: VINCRISTINE SULFATE IVPB SCH (14:00)
[2019-05-05] MEDS ORDERED: PEGFILGRASTIM-JMDB 6 MG/0.6 ML SYRINGE SQ SCH (14:00)
[2019-05-05] MEDS: Bisacodyl 5 MG TAB PO PRN (14:57)
--- NOTE | 2019-05-05 17:23 | PDOC.HOSPP ---
- Subjective Encounter Date: 05/05/19 Encounter Time: 10:00 Subjective: THe patient has no complaints other than soreness from his bone marrow biopsy. HE is still constipated, no bowel movement since the . He has an order for an enema today - Objective Vital Signs & Weight: Vital Signs (12 hours) Temp Pulse Resp BP Pulse Ox 05/05/19 16:04 97.6 F 65 18 162/75 H 98 05/05/19 13:50 99 05/05/19 13:35 97.6 F 66 18 158/72 H 99 05/05/19 12:45 98.1 F 63 20 144/74 H 96 05/05/19 11:14 97.4 F L 61 19 160/81 H 95 05/05/19 08:30 95 05/05/19 07:14 97.9 F 58 L 18 150/73 H 95 Weight Admit Weight 219 lb 6.006 oz Weight 219 lb 6.006 oz I&O: 05/04/19 05/05/19 05/06/19 06:59 06:59 06:59 Intake Total 1970 2400 Output Total 200 180 Balance 1770 2220 Result Diagrams: 05/03/19 05:24 05/03/19 05:24 Hospitalist ROS - Medication Medications: Active Medications Generic Name Dose Route Start Last Admin Trade Name Marlys PRN Reason Stop Dose Admin Acetaminophen 650 mg 04/26/19 17:50 04/30/19 19:24 Tylenol PO 650 mg Q4H PRN Administration Headache/Fever/Mild Pain (1-3) Acetaminophen 1,000 mg 05/05/19 13:59 05/05/19 14:57 Tylenol PO 1,000 mg WILLCALL PRN Administration Headache/Fever or Pain Hydrocodone Bitart/Acetaminophen 1 tab 04/29/19 06:47 05/04/19 02:39 [place] 5/325 PO 1 tab Q4H PRN Administration Moderate to Severe Pain (6-10) Bisacodyl 10 mg 05/05/19 11:26 05/05/19 14:57 Dulcolax PO 10 mg DAILYPRN PRN Administration Constipation Dexamethasone 4 mg 04/27/19 18:00 05/05/19 15:41 Decadron SLOW IVP Not Given Q6HR FAITH Famotidine 20 mg 04/26/19 21:00 05/05/19 09:02 Pepcid PO 20 mg BID FAITH Administration Heparin Sodium (Porcine) 5,000 units 05/05/19 09:00 05/05/19 14:58 Heparin SC 5,000 units TID FAITH Administration Sodium Chloride 1,000 mls @ 70 mls/hr 04/27/19 07:45 05/05/19 05:22 Normal Saline 0.9% IV 1,000 mls .[id number] FAITH Administration Rituximab 100 mg/ Sodium 110 mls @ 0 mls/hr 05/05/19 13:45 05/05/19 15:57 Chloride IVPB 110 mls WILLCALL FAITH Administration As Directed Diphenhydramine HCl 50 mg/ 51 mls @ 153 mls/hr 05/05/19 13:57 05/05/19 14:58 Sodium Chloride IVPB 51 mls WILLCALL PRN Administration Itching & Insomnia Lidocaine 1 patch 05/05/19 11:00 05/05/19 11:47 Lidoderm 5% Patch TD 1 patch 1100 FAITH Administration Polyethylene Glycol 17 gm 05/01/19 09:00 05/05/19 09:06 Miralax PO 17 gm DAILY FAITH Administration Sodium Chloride 10 ml 04/27/19 09:00 05/05/19 09:09 Flush - Normal Saline IVF Not Given Q12HR FAITH Tramadol HCl 50 mg 04/29/19 06:47 05/05/19 09:02 Ultram PO 50 mg Q6H PRN Administration Mild-Moderate Pain (1-5) - Exam General Appearance: NAD, awake alert Eye: PERRL, anicteric sclera ENT: normocephalic atraumatic, no oropharyngeal lesions Neck: supple, no JVD Heart: RRR, no murmur, no gallops, no rubs Respiratory: CTAB, no wheezes, no rales, no ronchi Gastrointestinal: soft, non-tender, non-distended, normal bowel sounds Extremities: no cyanosis, no clubbing, no edema Skin: normal turgor, no lesions, no rashes Skin - other findings: some bruising on flank. No major ecchymoses noted Neurological: cranial nerve grossly intact, normal sensation to touch, no focal deficits, no new deficit Musculoskeletal: normal tone, normal strength, no muscle wasting Psychiatric: normal affect, normal behavior, A&O x 3 Hosp A/P - Plan This is an 83 year old male who presented with left shoulder pain and right leg weakness, incidentally found to have metastatic lesions, newly discovered with lymphoma #Diffuse Large B-cell Lymphoma - oncology consulted, needs RCHOP for 6 cycles. Patient had LP 05/04, preliminary no evidence of lymphoma. Bone marrow biopsy also negative for lymphoma but shows hypercellular marrow. FISH studies pending - plan to start R-CHOP tomorrow - s/p mediport placement 05/04 #Constipation - will continue miralax - added bisacodyl suppository prn - enema prn Hypercalcemia- resolved. D/c zoledronic acid. On dexamethasone q6 #Anemia of chronic disease - stable with Hb 10.7. - iron studies consistent with anemia of chronic disease. B12/folate normal Code status: full code
[2019-05-05] MEDS ORDERED: Fleet Enema 133 ML BOT PR PRN (17:24)
[2019-05-05 23:08] LABS: Hemoglobin 10.7 g/dL (14.0-18.0); Mean Corpuscular HGB CONC 33.4 g/dL (32.0-36.0); Mean Corpuscular Hemoglobin 32.8 pg (27.0-31.0); Mean Corpuscular Volume 98.2 fL (78.0-98.0); Mean Platelet Volume 8.6 fL (7.4-10.4); Platelet Count 206 thou/uL (130-400); RBC Distribution Width 11.7 % (11.5-14.5); Red Blood Cell (RBC) Count 3.27 mill/uL (4.70-6.10); White Blood Cell (WBC) Count 12.6 thou/uL (4.8-10.8)
[2019-05-05 23:20] LABS: ALT (SGPT) 17 U/L (8-55); AST (SGOT) 15 U/L (5-34); Albumin 2.6 g/dL (3.4-4.8); Alkaline Phosphatase 75 U/L (40-110); Anion Gap 9 mmol/L (10-20); BUN (Urea Nitrogen) 24 mg/dL (8.4-25.7); Band 6 % (5-11); Bilirubin, Total 0.4 mg/dL (0.2-1.2); Calc. Creatinine Clearance 113 mL/min (70-130); Calcium 7.4 mg/dL (7.8-10.44); Carbon Dioxide 26 mmol/L (23-31); Chloride 107 mmol/L (98-107); Estimated GFR-MDRD Greater than 90; Globulin 2.2 g/dL (2.4-3.5); Glucose 156 mg/dL (83-110); Lymphocytes 3 % (21-51); MDiff Complete? YES; Monocytes 4 % (0-10); Myelocyte 1 % (0-0); Neutrophil 86 % (42-75); Platelet Morphology Comment Appears Adequate; Potassium 3.9 mmol/L (3.5-5.1); Protein, Total 4.8 g/dL (5.8-8.1); Sodium 138 mmol/L (136-145); Uric Acid 3.2 mg/dL (3.5-7.2)
[2019-05-05] MEDS: Lidocaine Patch Removal 1 EACH TOP SCH (23:31)
[2019-05-06] MEDS: traMADol HCl 50 MG TAB PO PRN ×2 (00:51→20:24)
[2019-05-06] MEDS: Dexamethasone 4 mg/ml Vial SLOW IVP SCH (06:12)
[2019-05-06 06:29] LABS: Hemoglobin 11.2 g/dL (14.0-18.0); Mean Corpuscular HGB CONC 33.4 g/dL (32.0-36.0); Mean Corpuscular Hemoglobin 32.5 pg (27.0-31.0); Mean Corpuscular Volume 97.2 fL (78.0-98.0); Mean Platelet Volume 8.9 fL (7.4-10.4); Platelet Count 204 thou/uL (130-400); RBC Distribution Width 11.7 % (11.5-14.5); Red Blood Cell (RBC) Count 3.44 mill/uL (4.70-6.10); White Blood Cell (WBC) Count 11.9 thou/uL (4.8-10.8)
[2019-05-06 06:40] LABS: Band 6 % (5-11); Lymphocytes 2 % (21-51); MDiff Complete? YES; Metamyelocyte 1 % (0-0); Monocytes 3 % (0-10); Neutrophil 88 % (42-75); Platelet Morphology Comment Appears Adequate
[2019-05-06 06:45] LABS: ALT (SGPT) 17 U/L (8-55); AST (SGOT) 14 U/L (5-34); Albumin 2.7 g/dL (3.4-4.8); Alkaline Phosphatase 70 U/L (40-110); Anion Gap 9 mmol/L (10-20); BUN (Urea Nitrogen) 21 mg/dL (8.4-25.7); Bilirubin, Total 0.5 mg/dL (0.2-1.2); Calc. Creatinine Clearance 118 mL/min (70-130); Calcium 7.3 mg/dL (7.8-10.44); Carbon Dioxide 26 mmol/L (23-31); Chloride 108 mmol/L (98-107); Estimated GFR-MDRD Greater than 90; Globulin 2.4 g/dL (2.4-3.5); Glucose 122 mg/dL (83-110); Protein, Total 5.1 g/dL (5.8-8.1); Sodium 139 mmol/L (136-145)
[2019-05-06] MEDS: predniSONE 50 MG TAB PO SCH (09:15)
[2019-05-06] MEDS: Heparin 5,000 UNITS/ML VIAL SC SCH ×3 (09:16→20:24)
[2019-05-06] MEDS: Famotidine 20 MG TAB PO SCH ×2 (09:16→20:23)
[2019-05-06] MEDS: Polyethylene Glycol 3350 17 GM Packet PO SCH (09:16)
[2019-05-06] MEDS: Lidocaine 5% Patch TD SCH (11:04)
--- NOTE | 2019-05-06 12:31 | PDOC.MOPN ---
Interval History: C1D2 of chemo: Pt feeling ok today, still with severe leg weakness, participating with PT. Tolerated chemo well w/o any N/V/D or fevers. He is constipated, may be receiving an enema today. Bone marrow and CSF negative for lymphoma. - Vital Signs Vital Signs: Vital Signs (12 hours) Temp Pulse Resp BP Pulse Ox 05/06/19 08:06 97.6 F 65 18 148/65 H 97 05/06/19 08:00 97 05/06/19 04:30 97.6 F 56 L 18 139/71 99 Weight Admit Weight 219 lb 6.006 oz Weight 219 lb - Physical Exam General: Alert, Oriented x3, Cooperative HEENT: EOMI Lungs: Normal air movement Cardiovascular: Regular rate Neurological: Cranial nerves 3-12 NL Psych/Mental Status: Mood NL - Labs Result Diagrams: 05/06/19 06:10 05/06/19 06:10 Lab results: Laboratory Results - last 24 hr 05/06/19 06:10: WBC 11.9 H, RBC 3.44 L, Hgb 11.2 L, Hct 33.4 L, MCV 97.2, MCH 32.5 H, MCHC 33.4, RDW 11.7, Plt Count 204, MPV 8.9, Neutrophils % (Manual) 88 H , Band Neuts % (Manual) 6, Lymphocytes % (Manual) 2 L, Monocytes % (Manual) 3, Metamyelocytes % (Man) 1 H, Neutrophils # Not Reportable, Lymphocytes # Not Reportable, Plt Morphology Comment Appears Adequate 05/06/19 06:10: Lactate Dehydrogenase 393 H 05/06/19 06:10: Uric Acid 3.2 L 05/06/19 06:10: Sodium 139, Potassium 4.0, Chloride 108 H, Carbon Dioxide 26, Anion Gap 9 L, BUN 21, Creatinine 0.68 L, Estimated GFR (MDRD) Greater than 90 , Glucose 122 H, Calcium 7.3 L, Total Bilirubin 0.5, AST 14, ALT 17, Alkaline Phosphatase 70, Serum Total Protein 5.1 L, Albumin 2.7 L, Globulin 2.4, Albumin/ Globulin Ratio 1.1 L 05/05/19 22:45: WBC 12.6 H, RBC 3.27 L, Hgb 10.7 L, Hct 32.1 L, MCV 98.2 H, MCH 32.8 H, MCHC 33.4, RDW 11.7, Plt Count 206, MPV 8.6, Neutrophils % (Manual) 86 H , Band Neuts % (Manual) 6, Lymphocytes % (Manual) 3 L, Monocytes % (Manual) 4, Myelocytes % 1 H, Neutrophils # Not Reportable, Lymphocytes # Not Reportable, Plt Morphology Comment Appears Adequate 05/05/19 22:45: Lactate Dehydrogenase 359 H 05/05/19 22:45: Sodium 138, Potassium 3.9, Chloride 107, Carbon Dioxide 26, Anion Gap 9 L, BUN 24, Creatinine 0.71, Estimated GFR (MDRD) Greater than 90, Glucose 156 H, Uric Acid 3.2 L, Calcium 7.4 L, Total Bilirubin 0.4, AST 15, ALT 17, Alkaline Phosphatase 75, Serum Total Protein 4.8 L, Albumin 2.6 L, Globulin 2.2 L, Albumin/Globulin Ratio 1.2 05/04/19 10:55: Flow Cytometry Interp A/P - Problem (1) Diffuse large B cell lymphoma Current Visit: Yes Code(s): C83.30 - DIFFUSE LARGE B-CELL LYMPHOMA, UNSPECIFIED SITE Status: Acute - Plan Plan: Stage IV DLBCL C1D2 of R-mini-CHOP monitor for CBC, TLS labs stool softeners, enema prn f/u FISH results
--- NOTE | 2019-05-06 13:08 | PDOC.MOPN ---
Interval History: c/o constipation - Vital Signs Vital Signs: Vital Signs (12 hours) Temp Pulse Resp BP Pulse Ox 05/06/19 12:00 98.2 F 58 L 18 162/74 H 98 05/06/19 08:06 97.6 F 65 18 148/65 H 97 05/06/19 08:00 97 05/06/19 04:30 97.6 F 56 L 18 139/71 99 Weight Admit Weight 219 lb 6.006 oz Weight 219 lb - Physical Exam General: Alert, Oriented x3, No acute distress HEENT: Atraumatic, PERRLA, EOMI, Mucous membr. moist/pink Lungs: Clear to auscultation, Normal air movement Cardiovascular: Regular rate, Normal S1, Normal S2, No murmurs, Gallops, Rubs Abdomen: Normal bowel sounds, Soft, No tenderness, No hepatospenomegaly, No masses Extremities: No clubbing, No cyanosis, No edema, Normal pulses, No tenderness/ swelling Skin: No rashes, No breakdown, No significant lesion Neurological: Normal gait, Normal speech, Strength at 5/5 X4 ext, Normal tone, Sensation intact, Cranial nerves 3-12 NL, Reflexes 2+ Psych/Mental Status: Mental status NL, Mood NL - Labs Result Diagrams: 05/06/19 06:10 05/06/19 06:10 Lab results: Laboratory Results - last 24 hr 05/06/19 06:10: WBC 11.9 H, RBC 3.44 L, Hgb 11.2 L, Hct 33.4 L, MCV 97.2, MCH 32.5 H, MCHC 33.4, RDW 11.7, Plt Count 204, MPV 8.9, Neutrophils % (Manual) 88 H , Band Neuts % (Manual) 6, Lymphocytes % (Manual) 2 L, Monocytes % (Manual) 3, Metamyelocytes % (Man) 1 H, Neutrophils # Not Reportable, Lymphocytes # Not Reportable, Plt Morphology Comment Appears Adequate 05/06/19 06:10: Lactate Dehydrogenase 393 H 05/06/19 06:10: Uric Acid 3.2 L 05/06/19 06:10: Sodium 139, Potassium 4.0, Chloride 108 H, Carbon Dioxide 26, Anion Gap 9 L, BUN 21, Creatinine 0.68 L, Estimated GFR (MDRD) Greater than 90 , Glucose 122 H, Calcium 7.3 L, Total Bilirubin 0.5, AST 14, ALT 17, Alkaline Phosphatase 70, Serum Total Protein 5.1 L, Albumin 2.7 L, Globulin 2.4, Albumin/ Globulin Ratio 1.1 L 05/05/19 22:45: WBC 12.6 H, RBC 3.27 L, Hgb 10.7 L, Hct 32.1 L, MCV 98.2 H, MCH 32.8 H, MCHC 33.4, RDW 11.7, Plt Count 206, MPV 8.6, Neutrophils % (Manual) 86 H , Band Neuts % (Manual) 6, Lymphocytes % (Manual) 3 L, Monocytes % (Manual) 4, Myelocytes % 1 H, Neutrophils # Not Reportable, Lymphocytes # Not Reportable, Plt Morphology Comment Appears Adequate 05/05/19 22:45: Lactate Dehydrogenase 359 H 05/05/19 22:45: Sodium 138, Potassium 3.9, Chloride 107, Carbon Dioxide 26, Anion Gap 9 L, BUN 24, Creatinine 0.71, Estimated GFR (MDRD) Greater than 90, Glucose 156 H, Uric Acid 3.2 L, Calcium 7.4 L, Total Bilirubin 0.4, AST 15, ALT 17, Alkaline Phosphatase 75, Serum Total Protein 4.8 L, Albumin 2.6 L, Globulin 2.2 L, Albumin/Globulin Ratio 1.2 05/04/19 10:55: Flow Cytometry Interp 04/27/19 07:52: Miscellaneous Test Status: lab reviewed by me A/P - Problem (1) Diffuse large B cell lymphoma Current Visit: Yes Code(s): C83.30 - DIFFUSE LARGE B-CELL LYMPHOMA, UNSPECIFIED SITE Status: Acute - Plan Plan: transfer to oncology for chemo
--- NOTE | 2019-05-06 13:49 | CT ---
CT GUIDED RIGHT ILIAC BONE MARROW ASPIRATION AND BIOPSY: CLINICAL HISTORY: B-cell lymphoma. PROCEDURE: The procedure including the risks and complications were explained to the patient, and informed conse nt was obtained. The patient was placed on the CT scan table in the prone position. Noncontrasted CT images were obtained through the pelvis. An area was marked overlying the RIGHT yesenia c bone, and the area was meticulously prepped and draped in usual sterile fashion. The skin and subcutaneous tissues were infiltrated with buffered 1% lidocaine for local anesthesia. After a small skin incision was made, an 11-gauge needle was advanced and positioning was confirmed w ith axial CT images. Approximately 8 milliliters of bone marrow aspirate was obtained. The needle was then further advanced, and a bone marrow biopsy was performed. The needle was removed, and hemost asis was achieved with direct pressure. The patient tolerated the procedure well and without immediate complication. The patient was transported to radiology nurses holding area for further emanuel toring prior to discharge. IMPRESSION: Technically successful percutaneous bone marrow aspiration and biopsy. Pathology results are pending. Transcribed Date/Time: 05/06/2019 1:49 PM
[2019-05-06] MEDS: Bisacodyl 5 MG TAB PO PRN (14:17)
[2019-05-06] MEDS: Sodium Chloride 0.9% 1,000 ML IV SCH (14:36)
--- NOTE | 2019-05-06 16:33 | PDOC.PALCO ---
Palliative Care Consult - Consult Details Requesting Physician: Dr Abdi Reason for Consult: goals of care, family support Family Members Present: - Allergies Allergies/Adverse Reactions: Allergies Allergy/AdvReac Type Severity Reaction Status Date / Time aspirin Allergy Severe Anaphylaxis Verified 05/03/19 06:28 NSAIDS (Non-Steroidal Allergy Verified 04/26/19 19:41 Anti-Inflamma - Objective Vital Signs: Vital Signs - Most Recent Temp Pulse Resp BP Pulse Ox 98.2 F 63 18 165/77 H 98 05/06/19 12:00 05/06/19 13:32 05/06/19 12:00 05/06/19 13:32 05/06/19 12:00 - Plan/Recommendations Plan: Introduced Palliative Care and discussed with patient and . Discussed Chemo and lack of "side effects" currently. Made suggestions in relation to poor appetite or nausea should they present. Patient to have an enema secondary to no BM with other interventions. Will follow up and look at Bowel regime after constipation is relieved. Pain a 4 but states that it is currently adequately managed. 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 Strong support system with both family and friends. Stated the recent diagnosis was overwhelming and a surprise, They are hopeful *Assess Bowel Regimen / aside from medication ensure adequate fluid intake. *Suggested if appetite declines or "taste buds" become altered with chemo to avoid hot foods, but seek cooler or room temperature foods. Small meals and avoid liquids with meals. *Reassess pain and ensure adequate coverage to participate with PT and optimal daily function *Continue to support patient and through therapeutic listening and emotional support Please also refer to Palliative Care RN notes in note section. [75] minutes spent on this encounter with >50% of the time in counseling and coordination of care. Thank you for this very appropriate consult.
--- NOTE | 2019-05-06 19:14 | PDOC.HOSPP ---
- Subjective Encounter Date: 05/06/19 Encounter Time: 15:00 Subjective: The patient got chemotherapy last night and this morning and tolerated it well. He denies side effects. Still no BM. Will try suppository and enema today - Objective Vital Signs & Weight: Vital Signs (12 hours) Temp Pulse Pulse Pulse Resp BP BP 05/06/19 16:00 98.4 F 60 18 05/06/19 13:32 63 65 165/77 H 173/77 H 05/06/19 12:00 98.2 F 58 L 18 05/06/19 08:06 97.6 F 65 18 05/06/19 08:00 BP Pulse Ox 05/06/19 16:00 166/73 H 98 05/06/19 13:32 05/06/19 12:00 162/74 H 98 05/06/19 08:06 148/65 H 97 05/06/19 08:00 97 Weight Admit Weight 219 lb 6.006 oz Weight 219 lb I&O: 05/05/19 05/06/19 05/07/19 06:59 06:59 06:59 Intake Total 2400 2699 2045 Output Total 180 575 Balance 2220 2124 2045 Result Diagrams: 05/06/19 06:10 05/06/19 06:10 Hospitalist ROS - Review of Systems Constitutional: denies: fever, chills - Medication Medications: Active Medications Generic Name Dose Route Start Last Admin Trade Name Freq PRN Reason Stop Dose Admin Acetaminophen 650 mg 04/26/19 17:50 04/30/19 19:24 Tylenol PO 650 mg Q4H PRN Administration Headache/Fever/Mild Pain (1-3) Acetaminophen 1,000 mg 05/05/19 13:59 05/05/19 14:57 Tylenol PO 1,000 mg WILLCALL PRN Administration Headache/Fever or Pain Hydrocodone Bitart/Acetaminophen 1 tab 04/29/19 06:47 05/04/19 02:39 [place] 5/325 PO 1 tab Q4H PRN Administration Moderate to Severe Pain (6-10) Bisacodyl 10 mg 05/05/19 11:26 05/06/19 14:17 Dulcolax PO 10 mg DAILYPRN PRN Administration Constipation Famotidine 20 mg 04/26/19 21:00 05/06/19 09:16 Pepcid PO 20 mg BID FAITH Administration Heparin Sodium (Porcine) 5,000 units 05/05/19 09:00 05/06/19 14:18 Heparin SC 5,000 units TID FAITH Administration Sodium Chloride 1,000 mls @ 70 mls/hr 04/27/19 07:45 05/06/19 14:36 Normal Saline 0.9% IV 1,000 mls .[id number] FAITH Administration Rituximab 100 mg/ Sodium 110 mls @ 0 mls/hr 05/05/19 13:45 05/05/19 15:57 Chloride IVPB 110 mls WILLCALL FAITH Administration As Directed Rituximab 500 mg/ Rituximab 570 mls @ 0 mls/hr 05/05/19 14:00 05/05/19 18:41 200 mg/ Sodium Chloride IVPB 570 mls WILLCALL FAITH Administration As Directed Doxorubicin HCl 53.8 mg/ 76.9 mls @ 153.8 mls/hr 05/05/19 14:00 05/06/19 00: 45 Sodium Chloride IVPB 76.9 mls WILLCALL FAITH Administration Vincristine Sulfate 1 mg/ 51 mls @ 0 mls/hr 05/05/19 14:00 05/06/19 01:37 Sodium Chloride IVPB 51 mls WILLCALL FAITH Administration As Directed Diphenhydramine HCl 50 mg/ 51 mls @ 153 mls/hr 05/05/19 13:57 05/05/19 14:58 Sodium Chloride IVPB 51 mls WILLCALL PRN Administration Itching & Insomnia Dexamethasone Sodium Phosphate 51 mls @ 153 mls/hr 05/05/19 14:00 05/05/19 22 :34 10 mg/ Sodium Chloride IVPB 51 mls WILLCALL FAITH Administration Palonosetron 0.25 mg/ Sodium 55 mls @ 165 mls/hr 05/05/19 14:00 05/05/19 22: 09 Chloride IVPB 55 mls WILLCALL FAITH Administration Cyclophosphamide 0.86 gm/ 293 mls @ 293 mls/hr 05/05/19 16:30 05/05/19 23:30 Sodium Chloride IVPB 293 mls WILLCALL FAITH Administration Lidocaine 1 patch 05/05/19 11:00 05/06/19 11:04 Lidoderm 5% Patch TD 1 patch 1100 FAITH Administration Miscellaneous Medication 1 each 05/05/19 23:00 02/20/20 23:31 Lidocaine Patch Removal TOP Not Given 2300 FAITH Polyethylene Glycol 17 gm 05/01/19 09:00 05/06/19 09:16 Miralax PO 17 gm DAILY FAITH Administration Prednisone 100 mg 05/06/19 09:00 05/06/19 09:15 Prednisone PO 05/09/19 09:01 100 mg 0900 FAITH Administration Sodium Biphosphate/Sodium Phosphate 133 ml 05/05/19 17:24 05/06/19 16:35 Fleet Enema [place] 133 ml DAILY PRN Administration Constipation Sodium Chloride 10 ml 04/27/19 09:00 05/06/19 09:20 Flush - Normal Saline IVF Not Given Q12HR FAITH Sodium Chloride 10 ml 04/27/19 07:40 05/06/19 06:13 Flush - Normal Saline IVF 10 ml PRN PRN Administration Saline Flush Tramadol HCl 50 mg 04/29/19 06:47 05/06/19 00:51 Ultram PO 50 mg Q6H PRN Administration Mild-Moderate Pain (1-5) - Exam General Appearance: NAD, awake alert Eye: PERRL, anicteric sclera ENT: normocephalic atraumatic, no oropharyngeal lesions Neck: supple, no JVD Heart: RRR, no murmur, no gallops, no rubs Respiratory: CTAB, no wheezes, no rales, no ronchi Gastrointestinal: soft, non-tender, non-distended, normal bowel sounds Extremities: no cyanosis, no clubbing, no edema Skin: normal turgor, no lesions, no rashes Musculoskeletal - other findings: no significant muscle soreness Psychiatric: normal affect, normal behavior, A&O x 3 Hosp A/P - Plan This is an 83 year old male who presented with left shoulder pain and right leg weakness, incidentally found to have metastatic lesions, newly discovered with lymphoma #Diffuse Large B-cell Lymphoma - oncology consulted, needs RCHOP for 6 cycles. Patient had LP 05/04, preliminary no evidence of lymphoma. Bone marrow biopsy also negative for lymphoma but shows hypercellular marrow. FISH studies pending - s/p mediport placement 05/04 - continue chemotherapy over weekend - daily labs to monitor for tumor lysis syndrome #Constipation - will continue miralax - continue bisacodyl suppository prn - enema prn Hypercalcemia- resolved. D/c zoledronic acid. On dexamethasone q6 #Anemia of chronic disease - stable with Hb 10.7. - iron studies consistent with anemia of chronic disease. B12/folate normal Code status: full code
--- NOTE | 2019-05-06 22:34 | OP ---
DATE OF PROCEDURE: 05/04/2019 PREOPERATIVE DIAGNOSIS: Metastatic lymphoma. POSTOPERATIVE DIAGNOSIS: Metastatic lymphoma. PROCEDURE PERFORMED: Placement of a standard size power compatible right subclavian MediPort. ANESTHESIA: Total intravenous anesthesia with local using 0.25% Marcaine with epinephrine. INDICATIONS: The patient is an 83-year-old white male. He had presented to the hospital recently with symptoms that were found to be secondary to metastatic lymphoma. Chemotherapy was recommended and MediPort placement is requested for this purpose. DESCRIPTION OF PROCEDURE: Informed consent was obtained. The patient was taken to the operating room where total intravenous anesthesia was obtained with the patient in supine position. Periclavicular area was prepped with ChloraPrep and draped in sterile fashion. Local anesthetic was infiltrated and a large-gauge needle was passed under the clavicle in the subclavian vein. Guidewire was passed through the needle and fluoroscopically confirmed to enter the superior vena cava. Additional local anesthetic was infiltrated and transverse incision was created based on needle insertion site. A subcutaneous pocket was dissected inferiorly. Introducer dilator was passed over the guidewire under fluoroscopic guidance. The guidewire and dilator were removed, and the catheter was passed through the introducer. The tip of the catheter was positioned at the atriocaval junction and the catheter was trimmed to the appropriate length and secured to the locking hub of the MediPort. The port was then placed in the subcutaneous pocket where it was secured to the pectoral fascia with 2 interrupted sutures of 3-0 Prolene. The incision was then closed in layers with 3-0 and 4-0 Monocryl. Additional local anesthetic was infiltrated. The port was cannulated with a Kramer needle and it aspirated blood freely and was flushed with heparinized saline. Dermabond was placed externally on the skin incision. There were no complications. Blood loss was negligible. The patient tolerated the procedure well and was taken to recovery room in stable condition. FINDINGS: I placed a standard size right subclavian MediPort secondary to his body habitus. The anatomy was without abnormality and the port was placed uneventfully using fluoroscopy. At the completion of the procedure, his port was cannulated with a Kramer needle and flushed as it was planned to be used for chemotherapy the following day. There was essentially no blood loss. No complications. The patient tolerated the procedure well and was taken to recovery room in stable condition. Job ID: [id number]
[2019-05-07] MEDS: Lidocaine Patch Removal 1 EACH TOP SCH ×2 (00:15→23:20)
[2019-05-07] MEDS: Sodium Chloride 0.9% 1,000 ML IV SCH ×3 (04:58→21:00)
[2019-05-07 05:07] LABS: Mean Corpuscular HGB CONC 33.7 g/dL (32.0-36.0); Mean Corpuscular Hemoglobin 32.8 pg (27.0-31.0); Mean Corpuscular Volume 97.2 fL (78.0-98.0); Platelet Count 190 thou/uL (130-400); RBC Distribution Width 11.7 % (11.5-14.5); Red Blood Cell (RBC) Count 3.36 mill/uL (4.70-6.10); White Blood Cell (WBC) Count 12.1 thou/uL (4.8-10.8)
[2019-05-07 05:27] LABS: ALT (SGPT) 18 U/L (8-55); AST (SGOT) 16 U/L (5-34); Albumin 2.6 g/dL (3.4-4.8); Alkaline Phosphatase 68 U/L (40-110); Anion Gap 9 mmol/L (10-20); BUN (Urea Nitrogen) 21 mg/dL (8.4-25.7); Bilirubin, Total 0.5 mg/dL (0.2-1.2); Calc. Creatinine Clearance 121 mL/min (70-130); Calcium 7.3 mg/dL (7.8-10.44); Carbon Dioxide 26 mmol/L (23-31); Chloride 107 mmol/L (98-107); Estimated GFR-MDRD Greater than 90; Globulin 2.3 g/dL (2.4-3.5); Glucose 121 mg/dL (83-110); Magnesium 1.8 mg/dL (1.6-2.6); Potassium 3.6 mmol/L (3.5-5.1); Protein, Total 4.9 g/dL (5.8-8.1); Sodium 138 mmol/L (136-145); Uric Acid 3.4 mg/dL (3.5-7.2)
[2019-05-07 05:31] LABS: Phosphorus 1.9 mg/dL (2.3-4.7)
[2019-05-07] MEDS ORDERED: PEGFILGRASTIM-JMDB 6 MG/0.6 ML SYRINGE SQ SCH (06:00)
[2019-05-07 06:01] LABS: Band 4 % (5-11); Lymphocytes 3 % (21-51); MDiff Complete? YES; Monocytes 7 % (0-10); Neutrophil 86 % (42-75); Platelet Morphology Comment Appears Adequate; RBC Morphology Normal
[2019-05-07] MEDS: predniSONE 50 MG TAB PO SCH (08:51)
[2019-05-07] MEDS: Famotidine 20 MG TAB PO SCH ×2 (08:52→21:01)
[2019-05-07] MEDS: traMADol HCl 50 MG TAB PO PRN ×2 (08:52→21:01)
[2019-05-07] MEDS: Heparin 5,000 UNITS/ML VIAL SC SCH ×3 (08:54→21:05)
[2019-05-07] MEDS: Polyethylene Glycol 3350 17 GM Packet PO SCH (08:58)
--- NOTE | 2019-05-07 12:00 | PRG ---
DATE OF SERVICE: 05/07/2019 SUBJECTIVE: The patient states he is feeling okay. He still has right leg weakness, but overall is not in any significant pain other than his chronic lower back pain. He was previously thought to have metastatic renal cell carcinoma, but after his biopsy returned with B-cell lymphoma, he had elected to pursue treatment and has initiated chemotherapy which is currently ongoing. The patient reports normal voiding and no difficulty with urination or blood in the urine. OBJECTIVE: VITAL SIGNS: Temperature 97.7, pulse 64, respirations 20, blood pressure 149/68, and saturation 97% on room air. GENERAL: No apparent distress. Communicative and alert. CARDIOVASCULAR: Regular rate and rhythm. ABDOMEN: Soft, nontender, and nondistended. Positive bowel sounds. EXTREMITIES: No edema. LABORATORY EVALUATION: Full set of labs are in the [employer] system, which I have reviewed. Of note, the patient's white count is 12.1 with a hemoglobin of 11. Creatinine is 0.66. 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 He is currently under chemotherapy and under the care of the medical oncologists since he does have lymphoma and there is no urologic disease noted. I will sign off on this case. Again, the patient has no voiding issues. I told the patient should he have any further problems in the future regarding a urologic issue, he can always feel free to contact me, but I will leave him in the care of the medical oncologist, neurosurgeons, and hospitalist team for further treatment. Job ID: [id number]
[2019-05-07] MEDS: Lidocaine 5% Patch TD SCH (12:01)
[2019-05-07] MEDS ORDERED: Furosemide 40 MG/4 ML VIAL SLOW IVP SCH (14:15)
--- NOTE | 2019-05-07 15:14 | PDOC.MOPN ---
Interval History: Pt no longer constipated after enema last night with multiple BMs. Appetite good. No N/V. His BP has been high likely 2/2 prednisone. - Vital Signs Vital Signs: Vital Signs (12 hours) Temp Pulse Resp BP Pulse Ox 05/07/19 12:05 98.6 F 58 L 20 164/72 H 96 05/07/19 08:24 97.7 F 64 20 149/68 H 97 Weight Admit Weight 219 lb 6.006 oz Weight 219 lb - Physical Exam General: Alert, Oriented x3, Cooperative HEENT: EOMI Lungs: Normal air movement Cardiovascular: Regular rate Skin: No significant lesion (mild bruising) Neurological: Cranial nerves 3-12 NL Psych/Mental Status: Mood NL - Labs Result Diagrams: 05/07/19 04:50 05/07/19 04:50 Lab results: Laboratory Results - last 24 hr 05/07/19 04:50: Lactate Dehydrogenase 360 H 05/07/19 04:50: WBC 12.1 H, RBC 3.36 L, Hgb 11.0 L, Hct 32.6 L, MCV 97.2, MCH 32.8 H, MCHC 33.7, RDW 11.7, Plt Count 190, MPV 9.0, Neutrophils % (Manual) 86 H , Band Neuts % (Manual) 4 L, Lymphocytes % (Manual) 3 L, Monocytes % (Manual) 7 , Neutrophils # Not Reportable, Lymphocytes # Not Reportable, Plt Morphology Comment Appears Adequate, RBC Morph Comment Normal 05/07/19 04:50: Sodium 138, Potassium 3.6, Chloride 107, Carbon Dioxide 26, Anion Gap 9 L, BUN 21, Creatinine 0.66 L, Estimated GFR (MDRD) Greater than 90 , Glucose 121 H, Uric Acid 3.4 L, Calcium 7.3 L, Phosphorus 1.9 L, Magnesium 1.8 , Total Bilirubin 0.5, AST 16, ALT 18, Alkaline Phosphatase 68, Serum Total Protein 4.9 L, Albumin 2.6 L, Globulin 2.3 L, Albumin/Globulin Ratio 1.1 L A/P - Problem (1) Diffuse large B cell lymphoma Current Visit: Yes Code(s): C83.30 - DIFFUSE LARGE B-CELL LYMPHOMA, UNSPECIFIED SITE Status: Acute - Plan Plan: Stage IV DLBCL C1D3 of R-mini-CHOP monitor for CBC, TLS labs - no signs of TLS currently f/u FISH results mild HTN 2/2 prednisone
--- NOTE | 2019-05-07 15:27 | PRG ---
DATE OF SERVICE: 05/07/2019 SUBJECTIVE: The patient is seen and examined at the bedside. He feels better. He finally had bowel movement. His appetite is good. OBJECTIVE: VITAL SIGNS: Blood pressure is 164/72, pulse is 58, respirations 20, O2 saturation is 96% on room air, his temperature is 98.6 degrees of Fahrenheit. HEENT: His head is atraumatic and normocephalic. Eyes are PERRLA. Sclerae are nonicteric. Conjunctivae are palish. Oral mucosa is moist. NECK: Supple. LUNGS: Clear. HEART: S1, S2 normal. ABDOMEN: Obese. Bowel sounds are present. No organomegaly. EXTREMITIES: No clubbing or cyanosis. There is 2+ peripheral edema on both lower and upper extremities. NEUROLOGICAL: He follows my commands. He moves his all 4 extremities. There are no any motor deficits. LABORATORY DATA: Labs showed white count of 12.1, hemoglobin of 11.0, hematocrit 32.6, platelet count is 190,000. Sodium of 138, potassium 3.8, chloride 107, CO2 of 26, BUN 21, creatinine 0.66, uric acid 3.4, calcium 7.3, phosphorus 1.9, LDH 360, total protein 4.9, albumin 2.6, and globulin 2.3. Microbiology, no new findings. IMPRESSION: 1. Diffuse large B-cell lymphoma, on chemotherapy, R-CHOP for 6 cycles. MediPort was placed by General Surgery. Monitored for tumor lysis syndrome. 2. Constipation, resolved. 3. Hypercalcemia, resolved. 4. Chronic anemia. PLAN: As mentioned above, he will continue his chemotherapy. He will be monitored for tumor lysis syndrome. I am going to give him 1 dose of IV Lasix since he is showing quite significant fluid overload. Job ID: [id number]
[2019-05-08 04:52] LABS: Hemoglobin 10.9 g/dL (14.0-18.0); Mean Corpuscular HGB CONC 33.8 g/dL (32.0-36.0); Mean Corpuscular Hemoglobin 32.8 pg (27.0-31.0); Mean Corpuscular Volume 97.2 fL (78.0-98.0); Mean Platelet Volume 8.6 fL (7.4-10.4); Platelet Count 198 thou/uL (130-400); RBC Distribution Width 11.9 % (11.5-14.5); Red Blood Cell (RBC) Count 3.33 mill/uL (4.70-6.10); White Blood Cell (WBC) Count 53.9 thou/uL (4.8-10.8)
[2019-05-08 05:07] LABS: Albumin 2.6 g/dL (3.4-4.8); Anion Gap 9 mmol/L (10-20); BUN (Urea Nitrogen) 21 mg/dL (8.4-25.7); BUN/Creatinine Ratio 31.82; Calc. Creatinine Clearance 121 mL/min (70-130); Carbon Dioxide 26 mmol/L (23-31); Chloride 105 mmol/L (98-107); Estimated GFR-MDRD Greater than 90; Glucose 109 mg/dL (83-110); Magnesium 1.8 mg/dL (1.6-2.6); Potassium 3.4 mmol/L (3.5-5.1); Sodium 137 mmol/L (136-145); Uric Acid 3.4 mg/dL (3.5-7.2)
[2019-05-08 05:25] LABS: Band 19 % (5-11); Lymphocytes 2 % (21-51); MDiff Complete? YES; Metamyelocyte 1 % (0-0); Monocytes 3 % (0-10); Neutrophil 75 % (42-75); Platelet Morphology Comment Appears Adequate; RBC Morphology Normal
[2019-05-08] MEDS: Famotidine 20 MG TAB PO SCH ×2 (08:51→20:46)
[2019-05-08] MEDS: Polyethylene Glycol 3350 17 GM Packet PO SCH (08:51)
[2019-05-08] MEDS: Heparin 5,000 UNITS/ML VIAL SC SCH ×3 (08:52→20:48)
[2019-05-08] MEDS: predniSONE 50 MG TAB PO SCH (08:52)
[2019-05-08] MEDS ORDERED: K-Phos Neutral 250 MG TAB PO SCH (11:15)
--- NOTE | 2019-05-08 11:41 | PRG ---
DATE OF SERVICE: 05/08/2019 SUBJECTIVE: The patient is seen and examined at the bedside. He had good night. He does not have much complaints to offer. His appetite is fair. OBJECTIVE: VITAL SIGNS: Blood pressure is 133/61, pulse is 65, temperature is 98.4, respirations 16, O2 saturation is 96% on room air. HEENT: His head is atraumatic and normocephalic. Eyes are PERRLA. Sclerae are nonicteric. Conjunctivae are palish. Oral mucosa is moist. NECK: Supple. LUNGS: Clear. HEART: S1, S2 normal. No S3. No S4. ABDOMEN: Soft, nontender, nondistended. Bowel sounds are present. No organomegaly. EXTREMITIES: Upper and lower extremities 1+ peripheral edema, similar bilaterally. CHEST: Upper chest is with MediPort in place. NEUROLOGICAL: He follows my commands. He moves his all 4 extremities. LABORATORY DATA: Labs showed white count of , hemoglobin 10.9, hematocrit 32.4, platelet count is 198,000. Sodium is 137, potassium 3.4, chloride 105, CO2 of 26, BUN 21, creatinine 0.66, glucose 109, uric acid 3.4, calcium 7.0, phosphorus 2.0, magnesium 1.8, LDH 354, albumin 2.6. IMPRESSION: 1. Diffuse large B-cell lymphoma, on chemotherapy, monitored by Dr. Quevedo. The patient is monitored for tumor lysis syndrome. 2. Constipation, resolved. 3. Hypercalcemia, resolved. 4. Hypokalemia and hypophosphatemia, for replacement. 5. Chronic anemia. PLAN: Plan is to continue his chemotherapy. Continue close followup and monitoring for possible tumor lysis syndrome. The patient is on high dose of prednisone based on Oncology recommendation. Job ID: [id number]
[2019-05-08] MEDS: Potassium Chloride 20 MEQ TAB PO SCH ×3 (13:05→13:21)
[2019-05-08] MEDS: Lidocaine 5% Patch TD SCH (13:07)
[2019-05-08] MEDS: Sodium Chloride 0.9% 1,000 ML IV SCH ×2 (13:12→15:27)
[2019-05-08] MEDS: traMADol HCl 50 MG TAB PO PRN (20:53)
[2019-05-08] MEDS: Lidocaine Patch Removal 1 EACH TOP SCH (22:33)
[2019-05-09] MEDS: Sodium Chloride 0.9% 1,000 ML IV SCH ×2 (03:31→17:45)
[2019-05-09] MEDS: K-Phos Neutral 250 MG TAB PO SCH (08:31)
[2019-05-09] MEDS: Famotidine 20 MG TAB PO SCH ×2 (08:33→20:31)
[2019-05-09] MEDS: Heparin 5,000 UNITS/ML VIAL SC SCH ×3 (08:33→20:31)
[2019-05-09] MEDS: Polyethylene Glycol 3350 17 GM Packet PO SCH (09:00)
[2019-05-09] MEDS: predniSONE 50 MG TAB PO SCH (09:34)
[2019-05-09] MEDS: Lidocaine 5% Patch TD SCH (11:00)
--- NOTE | 2019-05-09 13:51 | PDOC.MOPN ---
Interval History: denies any complaints. Working with PT - Vital Signs Vital Signs: Vital Signs (12 hours) Temp Pulse Pulse Pulse Resp BP BP 05/09/19 12:09 68 72 159/74 H 160/78 H 05/09/19 08:00 98.4 F 56 L 18 BP Pulse Ox 05/09/19 12:09 05/09/19 08:00 159/73 H 97 Weight Admit Weight 219 lb 6.006 oz Weight 219 lb - Physical Exam General: Alert, Oriented x3, No acute distress HEENT: Atraumatic, PERRLA, EOMI, Mucous membr. moist/pink Lungs: Clear to auscultation, Normal air movement Cardiovascular: Regular rate, Normal S1, Normal S2, No murmurs, Gallops, Rubs Abdomen: Normal bowel sounds, Soft, No tenderness, No hepatospenomegaly, No masses Extremities: Other (2+ edema) - Labs Result Diagrams: 05/08/19 04:30 05/08/19 04:30 Lab results: Laboratory Results - last 24 hr 05/09/19 05:50: Lactate Dehydrogenase 407 H 05/09/19 05:50: Uric Acid 3.0 L Status: lab reviewed by me A/P - Problem (1) Diffuse large B cell lymphoma Current Visit: Yes Code(s): C83.30 - DIFFUSE LARGE B-CELL LYMPHOMA, UNSPECIFIED SITE Status: Acute - Plan Plan: leukocytosis from steroids Continue PT dc planning.
[2019-05-09] MEDS ORDERED: Lidocaine 5% Patch TD SCH (17:00)
--- NOTE | 2019-05-09 21:10 | PDOC.HOSPP ---
- Subjective Encounter Date: 05/09/19 Encounter Time: 14:30 Subjective: Continues on last day of steroid therapy by onc team. No overnight events. Moderate leg pain but states improved. Working with physycail therapy - Objective Vital Signs & Weight: Vital Signs (12 hours) Temp Pulse Pulse Pulse Resp BP BP 05/09/19 19:16 98.2 F 65 16 05/09/19 12:09 68 72 159/74 H 160/78 H BP Pulse Ox 05/09/19 19:16 163/72 H 96 05/09/19 12:09 Weight Admit Weight 219 lb 6.006 oz Weight 219 lb I&O: 05/08/19 05/09/19 05/10/19 06:59 06:59 06:59 Intake Total 2170 480 Output Total 2880 Balance -710 480 Result Diagrams: 05/08/19 04:30 05/08/19 04:30 Hospitalist ROS - Review of Systems All other systems reviewed; all pertinent +/- noted in HPI/Subj - Medication Medications: Active Medications Generic Name Dose Route Start Last Admin Trade Name Freq PRN Reason Stop Dose Admin Acetaminophen 650 mg 04/26/19 17:50 04/30/19 19:24 Tylenol PO 650 mg Q4H PRN Administration Headache/Fever/Mild Pain (1-3) Acetaminophen 1,000 mg 05/05/19 13:59 05/05/19 14:57 Tylenol PO 1,000 mg WILLCALL PRN Administration Headache/Fever or Pain Bisacodyl 10 mg 05/05/19 11:26 05/06/19 14:17 Dulcolax PO 10 mg DAILYPRN PRN Administration Constipation Famotidine 20 mg 04/26/19 21:00 05/09/19 20:31 Pepcid PO 20 mg BID FAITH Administration Heparin Sodium (Porcine) 5,000 units 05/05/19 09:00 05/09/19 20:31 Heparin SC 5,000 units TID FAITH Administration Sodium Chloride 1,000 mls @ 70 mls/hr 04/27/19 07:45 05/09/19 17:45 Normal Saline 0.9% IV 1,000 mls .[id number] FAITH Administration Rituximab 100 mg/ Sodium 110 mls @ 0 mls/hr 05/05/19 13:45 05/05/19 15:57 Chloride IVPB 110 mls WILLCALL FAITH Administration As Directed Rituximab 500 mg/ Rituximab 570 mls @ 0 mls/hr 05/05/19 14:00 05/05/19 18:41 200 mg/ Sodium Chloride IVPB 570 mls WILLCALL FAITH Administration As Directed Doxorubicin HCl 53.8 mg/ 76.9 mls @ 153.8 mls/hr 05/05/19 14:00 05/06/19 00: 45 Sodium Chloride IVPB 76.9 mls WILLCALL FAITH Administration Vincristine Sulfate 1 mg/ 51 mls @ 0 mls/hr 05/05/19 14:00 05/06/19 01:37 Sodium Chloride IVPB 51 mls WILLCALL FAITH Administration As Directed Diphenhydramine HCl 50 mg/ 51 mls @ 153 mls/hr 05/05/19 13:57 05/05/19 14:58 Sodium Chloride IVPB 51 mls WILLCALL PRN Administration Itching & Insomnia Dexamethasone Sodium Phosphate 51 mls @ 153 mls/hr 05/05/19 14:00 05/05/19 22 :34 10 mg/ Sodium Chloride IVPB 51 mls WILLCALL FAITH Administration Palonosetron 0.25 mg/ Sodium 55 mls @ 165 mls/hr 05/05/19 14:00 05/05/19 22: 09 Chloride IVPB 55 mls WILLCALL FAITH Administration Cyclophosphamide 0.86 gm/ 293 mls @ 293 mls/hr 05/05/19 16:30 05/05/19 23:30 Sodium Chloride IVPB 293 mls WILLCALL FAITH Administration Lidocaine 1 patch 05/09/19 17:00 05/09/19 16:39 Lidoderm 5% Patch TD 1 patch 1700 FAITH Administration Pegfilgrastim-jmdb 6 mg 05/07/19 06:00 05/07/19 06:30 Fulphila SQ 6 mg WILLCALL FAITH Administration Phosphorus 250 mg 05/09/19 09:00 05/09/19 08:31 Kphos Neutral PO 250 mg DAILY FAITH Administration Polyethylene Glycol 17 gm 05/01/19 09:00 05/09/19 09:00 Miralax PO Not Given DAILY FAITH Sodium Biphosphate/Sodium Phosphate 133 ml 05/05/19 17:24 05/06/19 16:35 Fleet Enema SC 133 ml DAILY PRN Administration Constipation Sodium Chloride 10 ml 04/27/19 09:00 05/09/19 20:31 Flush - Normal Saline IVF 10 ml Q12HR FAITH Administration Sodium Chloride 10 ml 04/27/19 07:40 05/06/19 06:13 Flush - Normal Saline IVF 10 ml PRN PRN Administration Saline Flush - Exam General Appearance: NAD, awake alert Eye: PERRL, anicteric sclera ENT: normocephalic atraumatic, no oropharyngeal lesions, moist mucosa Neck: supple, symmetric, no JVD, no thyromegaly, no lymphadenopathy, no carotid bruit Heart: RRR, no murmur, no gallops, no rubs, normal peripheral pulses Respiratory: CTAB, no wheezes, no rales, no ronchi, normal chest expansion, no tachypnea, normal percussion Gastrointestinal: soft, non-tender, non-distended, normal bowel sounds, no palpable masses, no hepatomegaly, no splenomegaly, no bruit Extremities: no cyanosis, no clubbing, no edema Skin: normal turgor, no lesions, no rashes Neurological: cranial nerve grossly intact, normal sensation to touch, no weakness, no focal deficits, no new deficit Musculoskeletal: normal tone, normal strength, no muscle wasting Psychiatric: normal affect, normal behavior, A&O x 3 Hosp A/P (1) Diffuse large B cell lymphoma Code(s): C83.30 - DIFFUSE LARGE B-CELL LYMPHOMA, UNSPECIFIED SITE Status: Acute (2) Lower extremity weakness Code(s): R29.898 - OTH SYMPTOMS AND SIGNS INVOLVING THE MUSCULOSKELETAL SYSTEM Status: Acute (3) Metastatic disease Code(s): C79.9 - SECONDARY MALIGNANT NEOPLASM OF UNSPECIFIED SITE Status: Acute - Plan Continue to follow oncology recommendations, will likely need another treatment in 1 month Continue physical therapy/OT for mobilization Continue pain control with hydrocodone Continue other medication from home Disposition: Will likely need physical therapy and then subsequent chemotherapy in 1 month.
[2019-05-10] MEDS ORDERED: Lidocaine Patch Removal TOP SCH (05:00)
[2019-05-10] MEDS ORDERED: Ondansetron PF 4 MG/2 ML Vial IVP SCH (06:00)
[2019-05-10 08:22] VITALS: TEMP 98.3
[2019-05-10 10:28] VITALS: BP 138/65
[2019-05-10] MEDS: K-Phos Neutral 250 MG TAB PO SCH (10:41)
[2019-05-10] MEDS: Heparin 5,000 UNITS/ML VIAL SC SCH (10:42)
[2019-05-10] MEDS: Famotidine 20 MG TAB PO SCH (10:45)
[2019-05-10] MEDS: Polyethylene Glycol 3350 17 GM Packet PO SCH (11:01)
[2019-05-10] MEDS: Sodium Chloride 0.9% 1,000 ML IV SCH (11:01)
--- NOTE | 2019-05-10 13:44 | PDOC.MOPN ---
Interval History: no complaints, accepted to rehab - Vital Signs Vital Signs: Vital Signs (12 hours) Temp Pulse Pulse Resp BP BP Pulse Ox 05/10/19 09:03 73 138/65 05/10/19 08:16 98.3 F 76 18 168/72 H 97 Weight Admit Weight 219 lb 6.006 oz Weight 219 lb - Physical Exam General: Alert, Oriented x3, No acute distress HEENT: Atraumatic, PERRLA, EOMI, Mucous membr. moist/pink Lungs: Clear to auscultation, Normal air movement Cardiovascular: Regular rate, Normal S1, Normal S2, No murmurs, Gallops, Rubs Abdomen: Normal bowel sounds, Soft, No tenderness, No hepatospenomegaly, No masses Extremities: Other (1+ BLE edema) Neurological: Normal speech - Labs Result Diagrams: 05/08/19 04:30 05/08/19 04:30 Lab results: Laboratory Results - last 24 hr 05/10/19 04:22: Lactate Dehydrogenase 429 H 05/10/19 04:22: Uric Acid 2.8 L Status: lab reviewed by me A/P - Problem (1) Diffuse large B cell lymphoma Current Visit: Yes Code(s): C83.30 - DIFFUSE LARGE B-CELL LYMPHOMA, UNSPECIFIED SITE Status: Acute - Plan Plan: ok to dc to rehab CBC weekly call for fever > 101 Follow-up with Dr. Quevedo once out of rehab
--- NOTE | 2019-05-10 16:33 | PDOC.BPN ---
- Brief Progress Note DISCHARGE SUMMARY [facility] Discharge Patient Name: AUGUSTO MG Date of : 1935 Patient Status: Inpatient Attending Provider: Ion Bloom Date: 05/10/19 16:31 Initialization Date: 05/10/19 16:31 Discharge - Disposition Disposition: REHABILITATION INPATIENT - Patient Instructions Pre-Printed Education: Chemotherapy, Weakness, [id number] - Referrals and PCP Follow-Up Referrals and PCP Follow-Up: Christiano Quevedo MD [Active] - 05/25/19 9:30 am Rajendra Hunter MD [Primary Care Provider] - - Activity Instructions Activity:: Activity as Tolerated - Nourishment Instructions Nourishment:: Heart Healthy Diet - Therapy Instructions Therapies:: Physical Therapy Course - Course Orders, Labs, Meds: Patient initially presented to the emergency room with lower extremity weakness. 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 Patient was managed with steroids and pain control. Due to the extensive metastasis, he was not deemed a neurosurgical candidate for the osseous mets in his spine. Patient opted to pursue stage IV palliative chemotherapy. After multiple sessions of inpatient chemo, patient will be transferred to rehabilitation for physical therapy. Patient to continue physical therapy and follow-up for ongoing chemotherapy regimen in 1 month. Hosp A/P (1) Diffuse large B cell lymphoma Code(s): C83.30 - DIFFUSE LARGE B-CELL LYMPHOMA, UNSPECIFIED SITE Status: Acute (2) Lower extremity weakness Code(s): R29.898 - OTH SYMPTOMS AND SIGNS INVOLVING THE MUSCULOSKELETAL SYSTEM Status: Acute (3) Metastatic disease Code(s): C79.9 - SECONDARY MALIGNANT NEOPLASM OF UNSPECIFIED SITE Status: Acute
== END 2019-05-10 14:28 | DRG 842 ==
LOC: ERS 11:14 → INTOOBSV 14:18 → 2NO 14:18 → OBSVTOIN 04-27 18:47 → T4-B 04-28 09:27 → ONC 05-05 13:29
PROVIDERS: ADMIT Internal Medicine; ATTEND Internal Medicine
PROC: 0TB13ZX Excision of Left Kidney, Percutaneous Approach, Diagnostic (ICD-10-PCS; principal; 2019-04-29)
PROC: 07DR3ZX Extraction of Iliac Bone Marrow, Percutaneous Approach, Diagnostic (ICD-10-PCS; 2019-05-04)
PROC: 009U3ZX Drainage of Spinal Canal, Percutaneous Approach, Diagnostic (ICD-10-PCS; 2019-05-04)
PROC: 0JH63XZ Insertion of Tunneled Vascular Access Device into Chest Subcutaneous Tissue and Fascia, Percutaneous Approach (ICD-10-PCS; 2019-05-04)
PROC: 02HV33Z Insertion of Infusion Device into Superior Vena Cava, Percutaneous Approach (ICD-10-PCS; 2019-05-04)
PROC: 3E04305 Introduction of Other Antineoplastic into Central Vein, Percutaneous Approach (ICD-10-PCS; 2019-05-04)
DX: C83.39 Diffuse large B-cell lymphoma, extranodal and solid organ sites (principal); M51.16 Intervertebral disc disorders with radiculopathy, lumbar region; M48.061 Spinal stenosis, lumbar region without neurogenic claudication; Z85.46 Personal history of malignant neoplasm of prostate; E83.52 Hypercalcemia; D63.8 Anemia in other chronic diseases classified elsewhere; R32 Unspecified urinary incontinence; Z88.8 Allergy status to other drugs, medicaments and biological substances; K59.00 Constipation, unspecified; Z90.49 Acquired absence of other specified parts of digestive tract; Z98.49 Cataract extraction status, unspecified eye; Z51.5 Encounter for palliative care; E87.6 Hypokalemia; E83.39 Other disorders of phosphorus metabolism; Z98.890 Other specified postprocedural states
CPT/HCPCS: 20225; 36415; 36416; 50200; 70553; 71045; 71260; 72131; 72146; 72148; 74177; 77002; 77012; 78306; 80048; 80053; 80061; 80069; 81003; 82553; 82607; 82728; 82746; 83540; 83550; 83605; 83615; 83735; 83970; 84100; 84153; 84484; 84550; 85025; 85027; 85097; 87070; 87205; 88112; 88184; 88185; 88237; 88264; 88280; 88305; 88311; 88313; 88333; 88341; 88342; 88360; 88377; 89051; 93005; 93306; 94760; A9503; A9579; C1788; J0690; J1100; J1200; J1642; J1644; J1650; J1940; J2001; J2250; J2405; J2469; J2704; J3010; J3489; J3490; J7050; J7512; J9000; J9070; J9312; J9370; Q5108; Q9967; S0020

== ENCOUNTER 2019-05-30 08:43 | Day surgery (SDC) | payer MEDICARE, OTHER ==
[2019-05-27 13:16] VITALS: BMI 32.5
[2019-05-30 09:32] LABS: Hemoglobin 10.8 g/dL (14.0-18.0); Mean Corpuscular HGB CONC 33.5 g/dL (32.0-36.0); Mean Corpuscular Hemoglobin 31.8 pg (27.0-31.0); Mean Corpuscular Volume 94.8 fL (78.0-98.0); Platelet Count 418 thou/uL (130-400); RBC Distribution Width 18.8 % (11.5-14.5); White Blood Cell (WBC) Count 13.7 thou/uL (4.8-10.8)
[2019-05-30 09:46] LABS: Band 11 % (5-11); Eosinophils 1 % (0-10); Lymphocytes 4 % (21-51); MDiff Complete? YES; Metamyelocyte 1 % (0-0); Monocytes 9 % (0-10); Myelocyte 3 % (0-0); Neutrophil 71 % (42-75); Platelet Morphology Comment Appears Increased; Polychromasia SLIGHT = 2-3 cells (100X) (0-2/hpf)
[2019-05-30] MEDS ORDERED: PROPOFOL 200 MG/20 ML VIAL ONE (10:15)
[2019-05-30] MEDS ORDERED: Lidocaine 1% PF 5 ML VIAL ONE (10:15)
--- NOTE | 2019-05-30 12:06 | OP ---
DATE OF PROCEDURE: 05/30/2019 PROCEDURES: EGD with biopsy, colonoscopy with polypectomy. INDICATION FOR PROCEDURE: Anemia of unknown etiology, melena. DESCRIPTION OF PROCEDURE: After the risks and benefits of the procedures were explained to the patient including risks of bleeding, infection, perforation, reactions to anesthesia, aspiration and/or pain, informed consent was obtained. The patient was then taken to the endoscopy suite, where he was placed in the left lateral decubitus position, followed by introduction of deep sedation via propofol and anesthesia support. Once adequate sedation was achieved, the standard gastroscope was introduced into the mouth with intubation of the esophagus, stomach, and the proximal small intestines with the findings listed below. The patient tolerated this portion of the procedure well with no immediate perioperative complications. Upon conclusion of this portion of the procedure, all equipment was removed from the patient and the bed was rotated 180 degrees in anticipation of the colonoscopy. After a digital rectal examination was performed, the standard colonoscope was then introduced into the rectum and advanced to the right colon, where a surgical anastomosis was encountered. The quality of the prep was fair to good with a mild amount of retained semi-solid stool seen throughout the entire colon, but adequate for the visualization of polyps greater than 5 mm in size. The patient tolerated the procedure well with no immediate perioperative complications. Upon conclusion of the procedure, all equipment was removed from the patient and he was transferred to Day Stay in satisfactory condition. EGD FINDINGS: Esophagus: Normal-appearing mucosa was seen in the proximal, mid, and distal esophagus. There was no evidence of erosions, ulcerations, mass lesions, or active/recent bleeding. Normal-appearing mucosa was seen in the gastric cardia, fundus, body, and greater curvature. However, along the incisura and within the distal antrum itself, there were multiple petechiae appearing blood clots without any underlying abnormalities. Biopsies were taken throughout the entire stomach for evaluation of H pylori status. Otherwise, there was no evidence of erosions, ulcerations, or mass lesions. Duodenum: A 3-mm superficial ulceration was seen within the duodenal bulb without any high-risk stigmata of bleeding. Multiple ulcerations were then seen extending through the duodenal sweep and into the second portion, but again measuring between 1 mm to 3 mm in size without any high-risk stigmata of bleeding. Multiple biopsies were taken of these ulcerations for further evaluation and placed in a separate specimen jar. Otherwise, there was no evidence of mass lesions or active/recent bleeding. IMPRESSION: 1. Small petechiae appearing clots within the gastric antrum without underlying abnormalities concerning for NSAID gastritis. 2. Multiple superficial ulcerations seen in the duodenum concerning for NSAID use versus Helicobacter pylori infection. COLONOSCOPY FINDINGS: Digital rectal exam: Normal findings were seen on external examination. Colon findings: An end-to-side surgical anastomosis was encountered at 85 cm past the anal verge that was normal in appearance with healthy-appearing mucosa surrounding the anastomosis itself. Intubation of the terminal ileum did not reveal any abnormalities. A mild amount of semi-solid stool was seen throughout the entire colon that did interfere with visualization of the colonic mucosa making the visualization of colon polyps less than 5 mm in size more difficult; however, of the mucosa seen, normal-appearing mucosa was seen at the anastomosis within the distal ascending colon, transverse colon, descending colon, and sigmoid colon. A region of polypoid appearing tissue was seen in the rectum measuring approximately 5 cm to 6 cm in diameter. However, it did not have any clear margins or delineation with normal-appearing mucosa. On one more prominent portion of the seen mucosa, it measured approximately 1 cm in linear length and was completely removed with snare cautery polypectomy. It was retrieved and placed in a specimen jar for further evaluation. A larger mucosal defect was made by its extraction with the mucosal defect approximated use of a hemoclip x1 to prevent post polypectomy bleed. Then, using a submucosal injected Ezna ink/spot, the margins of this 5 cm to 6 cm region were then tattooed for further evaluation. Small internal hemorrhoids were seen on rectal retroflexion. IMPRESSION: 1. End-to-side surgical anastomosis encountered an 85 cm past the anal verge with normal appearance. 2. A 1 cm linear polyp seen in the rectum, status post hot snare polypectomy. 3. A 5 cm to 6 cm region of abnormal appearing mucosa in the rectum including the polyp, status post tattoo placement for further evaluation. 4. Small internal hemorrhoids. RECOMMENDATIONS: 1. We would continue to trend the patient's H and H and transfuse as necessary to maintain an H and H of 7/21. 2. Continue to monitor clinically for signs of active GI bleeding. 3. We would avoid any NSAIDs or anticoagulation for at least the next 48 hours. 4. We will follow up on the biopsy results with repeat upper or lower endoscopy determined by the pathology report. 5. We would have the patient follow up in the GI Clinic with repeat CBC in 3 to 4 weeks for evaluation of his anemia at that time. 6. We would place the patient on omeprazole 40 mg twice daily given the ulceration seen in the upper GI tract. Job ID: [id number]
== END 2019-05-30 12:30 | disposition home or self-care (01) ==
LOC: SDC 08:43
PROVIDERS: ATTEND Internal Medicine
PROC: 0DB98ZX Excision of Duodenum, Via Natural or Artificial Opening Endoscopic, Diagnostic (ICD-10-PCS; principal; 2019-05-30)
PROC: 0DB68ZX Excision of Stomach, Via Natural or Artificial Opening Endoscopic, Diagnostic (ICD-10-PCS; 2019-05-30)
PROC: 0DBP8ZX Excision of Rectum, Via Natural or Artificial Opening Endoscopic, Diagnostic (ICD-10-PCS; 2019-05-30)
PROC: 3E0H8GC Introduction of Other Therapeutic Substance into Lower GI, Via Natural or Artificial Opening Endoscopic (ICD-10-PCS; 2019-05-30)
DX: K62.1 Rectal polyp (principal); K29.81 Duodenitis with bleeding; K26.4 Chronic or unspecified duodenal ulcer with hemorrhage; K29.51 Unspecified chronic gastritis with bleeding; D64.9 Anemia, unspecified; K64.8 Other hemorrhoids; M19.90 Unspecified osteoarthritis, unspecified site; C83.30 Diffuse large B-cell lymphoma, unspecified site; C79.00 Secondary malignant neoplasm of unspecified kidney and renal pelvis; C79.31 Secondary malignant neoplasm of brain; C79.51 Secondary malignant neoplasm of bone; Z86.010 Personal history of colon polyps; Z88.6 Allergy status to analgesic agent; Z88.8 Allergy status to other drugs, medicaments and biological substances; Z99.3 Dependence on wheelchair
CPT/HCPCS: 85025; 88305; 88312; J2001; J2704

== ENCOUNTER 2019-10-11 08:26 | Outpatient (CLI) | payer MEDICARE, OTHER ==
--- NOTE | 2019-10-11 10:18 | PET ---
EXAM: PET/CT HISTORY: Diffuse B-cell lymphoma; evaluate response TECHNIQUE: PET scanning with CT attenuation correction was performed from the base of the brain to the proximal thighs following the intravenous administration of 10.7 millicuries [id number]. COMPARISON: PET/CT dated August 04, 2019, CT of the chest, abdomen and pelvis with IV contrast dated Apr MR lumbar spine dated April 27, 2019 FINDINGS: Biodistribution:The biodistribution for the exam appears acceptable. Head and neck: There is appropriate background activity within the brain. No hypermetabolic lymphaden opathy or masses identified. Thorax: No hypermetabolic pulmonary lesion, pleural effusion or lymphadenopathy is present. Abdomen and pelvis: There is expected background activity within the GI and systems. No hypermetab olic mass, lymphadenopathy or ascites is present. Osseous structures and skin: No hypermetabolic skin or osseous lesion is identified. A mild diffuse i ncreased metabolic uptake involving the osseous structures on the prior examination is no longer identified. IMPRESSION: Findings consistent with response to therapy. No residual hypermetabolic activity is seen involving t he head neck, chest, abdomen, pelvis, skin or osseous structures. Previously seen mild diffuse increased metabolic uptake involving the skeletal structures may reflect underlying bone marrow stimu lation therapy. Continued follow-up is recommended.
== END 2019-10-11 08:27 | disposition home or self-care (01) ==
LOC: PET 08:26
PROVIDERS: ATTEND Internal Medicine Hematology & Oncology
DX: C83.33 Diffuse large B-cell lymphoma, intra-abdominal lymph nodes (principal)
CPT/HCPCS: 78815; A9552; 80053; 82248; 83615; 84100; 84550

== ENCOUNTER 2020-03-28 08:13 | Outpatient (CLI) | payer MEDICARE, OTHER ==
--- NOTE | 2020-03-28 09:28 | CT ---
EXAM: CT chest, abdomen, and pelvis with IV contrast: HISTORY: Diffuse large B-cell lymphoma. Six-month follow-up evaluation. COMPARISON: PET/CT exam on 10/11/[address] chest, abdomen, and pelvis on 04/27/2019 FINDINGS: CT THORAX: Lungs: No consolidation, suspicious pulmonary nodule, or mass. Pleura: Trace pleural effusions were seen on prior PET/CT examination which have resolved. No new pul monary nodule is visualized within the lungs bilaterally. No consolidation is seen. Lymph nodes: No enlarged lymph nodes are seen by CT size criteria. Mediastinum: A right subclavian Mediport is noted in place Chest wall: No enlarged axillary lymph nodes are seen. CT ABDOMEN AND PELVIS: Liver: Within normal limits. Gallbladder: Within normal limits. \ Pancreas: Within normal limits. Spleen: Within normal limits. Adrenal glands: Within normal limits. Kidneys: Inferior pole right renal cyst is again present. Previously noted large lobulated mass invol ving the superior pole left kidney is no longer seen. However there is a low-attenuation area seen in the region of the previously seen large heterogeneous mass on prior CT exam. This low-attenuation area is unchanged compared to PET/CT exam on 10/11/2019. Urinary Bladder: Urinary bladder is incompletely distended. Levy of the urinary bladder do appear mi ldly thickened, but this may be related to incomplete distention. Reproductive organs: Evidence of prostatectomy with multiple surgical clips seen in the pelvis. Bowel: Evidence of right hemicolectomy. Loops of small bowel are normal in caliber. Adenopathy:No enlarged lymph nodes are seen within the abdomen or pelvis. Peritoneum: No free fluid or fluid collection is seen. No free intraperitoneal gas is identified. Abdominal wall: No abnormalities seen. Vessels: Vascular calcifications are seen in the thoracic and abdominal aorta as well as in the iliac arteries. Incidental note is made of a retroaortic left renal vein. Osseous structures: Degenerative changes are seen throughout the spine. There is calcification of the anterior longitudinal ligament involving the thoracic spine. Slight height loss involving the superior endplate L4 vertebral body is present, but this is a stable finding. No suspicious lytic or sclerotic osseous lesions are identified. Postoperative changes each shoulder is present. No suspicious lytic or sclerotic osseous lesions are identified. IMPRESSION: 1. No enlarged lymph nodes are seen within the chest, abdomen, or pelvis. No pulmonary nodule is visu alized. 2. Low-attenuation area superior pole left kidney and abutting the left adrenal gland is present and was also seen on PET/CT exam on 10/11/2019. No hypermetabolic activity is seen in this region on prior PET/CT exam. This is in region of previously noted large lobulated mass seen on CT exam on 04/27. 3. Postoperative changes related to right hemicolectomy as well as prostatectomy.
--- NOTE | 2020-03-28 12:54 | NM ---
NUCLEAR MEDICINE WHOLE BODY BONE SCAN: COMPARISON: 04/29/2019. HISTORY: Diffuse large B-cell lymphoma. Intraabdominal lymph nodes. Mild radiotracer uptake on previous PET im aging. TECHNIQUE: Patient was ministered 32.50 mCi of technetium 90 9M MDP intravenously. After appropriate 3 hour elian y, whole body imaging is performed. FINDINGS: Physiologic distribution of the radiotracer. Stable uptake of the radiotracer in the left and right shoulder, left and right wrists and bilateral proximal femurs. There is stable uptake along the posterior left scapula and left calvarium. There is mild heterogeneous uptake in the lumbar spine. There is stable uptake in the anterior left fourth rib. IMPRESSION: Stable multifocal radiotracer localization, unchanged. Findings are presumed to be due to a long-flory ding/chronic process. Correlation made with CT performed earlier today demonstrates areas of sclerosis and remodeling suggesting possible post treatment change. Transcribed Date/Time: 03/28/2020 12:58 PM
[2020-03-28] MEDS ORDERED: Iopamidol 370 76% 100 ML VIAL ONE (14:04)
== END 2020-03-28 08:14 | disposition home or self-care (01) ==
LOC: CT 08:13
PROVIDERS: ATTEND Internal Medicine Hematology & Oncology
DX: C83.33 Diffuse large B-cell lymphoma, intra-abdominal lymph nodes (principal); R93.422 Abnormal radiologic findings on diagnostic imaging of left kidney; Z90.49 Acquired absence of other specified parts of digestive tract; Z90.79 Acquired absence of other genital organ(s)
CPT/HCPCS: 71260; 74177; 78306; 80053; 82248; 82565; 83615; 84100; 84550; A9503; 36415

== ENCOUNTER 2020-09-13 09:00 | Outpatient (CLI) | payer MEDICARE, OTHER ==
[2020-09-13] MEDS ORDERED: Iopamidol 370 76% 100 ML VIAL ONE (09:24)
== END 2020-09-13 09:01 | disposition home or self-care (01) ==
LOC: CT 09:00
PROVIDERS: ATTEND Internal Medicine Hematology & Oncology
DX: C83.33 Diffuse large B-cell lymphoma, intra-abdominal lymph nodes (principal); C79.51 Secondary malignant neoplasm of bone; R93.422 Abnormal radiologic findings on diagnostic imaging of left kidney; Z90.49 Acquired absence of other specified parts of digestive tract; Z90.79 Acquired absence of other genital organ(s)
CPT/HCPCS: 71260; 74177; 78306; 82565; A9503

== ENCOUNTER 2020-11-29 23:14 | Emergency (ER) | payer MEDICARE, OTHER | END 2020-11-30 01:29 | disposition home or self-care (01) | LOC: ERS 23:14 | DX: R33.9 Retention of urine, unspecified (principal); Z85.46 Personal history of malignant neoplasm of prostate | CPT/HCPCS: 51702 ==

== ENCOUNTER 2020-12-13 12:52 | Outpatient (CLI) | payer MEDICARE, OTHER ==
[2020-12-13 14:40] LABS: Hemoglobin 12.7 g/dL (13.5-17.5); Mean Corpuscular HGB CONC 32.8 g/dL (32.0-36.0); Mean Corpuscular Hemoglobin 33.1 pg (27.0-33.0); Mean Corpuscular Volume 100.8 fl (81.2-95.1); Mean Platelet Volume 10.5 fl (7.4-10.4); Platelet Count 244 10x3/uL (150-450); RBC Distribution Width 12.5 % (11.5-14.5); Red Blood Cell (RBC) Count 3.84 10x6/uL (4.32-5.72); White Blood Cell (WBC) Count 5.7 10x3/uL (3.5-10.5)
[2020-12-13 15:17] LABS: Anion Gap 13 mmol/L (10-20); BUN (Urea Nitrogen) 18 mg/dL (8.4-25.7); Calc. Creatinine Clearance 0 mL/min (70-130); Calcium 9.1 mg/dL (7.8-10.44); Carbon Dioxide 24 mmol/L (23-31); Chloride 104 mmol/L (98-107); Glucose 120 mg/dL (83-110); Potassium 4.1 mmol/L (3.5-5.1); Sodium 137 mmol/L (136-145)
[2020-12-14 08:42] LABS: SARS-CoV-2 PCR by NAA DETECTED (NotDetected)
== END 2020-12-13 12:53 | disposition home or self-care (01) ==
LOC: LABBT 12:52
PROVIDERS: ATTEND Urology
DX: U07.1 COVID-19 (principal); Z01.818 Encounter for other preprocedural examination; N32.0 Bladder-neck obstruction
CPT/HCPCS: 80048; 85027; 93005; U0003; U0005; 93010

== ENCOUNTER 2020-12-13 16:28 | Inpatient (IN) | payer MEDICARE, OTHER ==
[2020-12-13 17:08] LABS: Hemoglobin 13.9 g/dL (14.0-18.0); Mean Corpuscular HGB CONC 31.7 g/dL (32.0-36.0); Mean Corpuscular Hemoglobin 32.4 pg (27.0-31.0); Mean Platelet Volume 7.8 fL (7.4-10.4); Platelet Count 248 thou/uL (130-400); RBC Distribution Width 11.4 % (11.5-14.5); Red Blood Cell (RBC) Count 4.28 mill/uL (4.70-6.10); White Blood Cell (WBC) Count 6.6 thou/uL (4.8-10.8)
[2020-12-13 17:20] LABS: ALT (SGPT) 19 U/L (8-55); AST (SGOT) 28 U/L (5-34); Albumin 4.2 g/dL (3.4-4.8); Alkaline Phosphatase 81 U/L (40-110); Anion Gap 13 mmol/L (10-20); BUN (Urea Nitrogen) 18 mg/dL (8.4-25.7); Bilirubin, Total 0.3 mg/dL (0.2-1.2); Calc. Creatinine Clearance 0 mL/min (70-130); Calcium 9.2 mg/dL (7.8-10.44); Carbon Dioxide 25 mmol/L (23-31); Chloride 103 mmol/L (98-107); Globulin 2.4 g/dL (2.4-3.5); Glucose 94 mg/dL (83-110); Potassium 4.4 mmol/L (3.5-5.1); Protein, Total 6.6 g/dL (5.8-8.1); Sodium 137 mmol/L (136-145)
[2020-12-13 17:26] LABS: Band 9 % (5-11); Eosinophils 2 % (0-10); Lymphocytes 31 % (21-51); MDiff Complete? YES; Macrocytosis SLIGHT = 6-15 cells (100X) (0-5/hpf); Monocytes 7 % (0-10); Neutrophil 42 % (42-75); Platelet Morphology Comment Appears Adequate; Reactive Lymphocytes 9 % (0-10)
[2020-12-13 17:41] LABS: CKMB 3.6 ng/mL (0-6.6)
[2020-12-13 18:08] LABS: Prothrombin Time 13.4 sec (12.0-14.7)
[2020-12-13 18:09] LABS: PTT 30.1 sec (22.9-36.1)
[2020-12-13] MEDS ORDERED: Enoxaparin Sodium 60 MG/0.6 ML SYRINGE ONE (18:56)
[2020-12-13] MEDS ORDERED: Enoxaparin Sodium 30 MG/0.3 ML SYRINGE ONE (18:56)
[2020-12-13] MEDS ORDERED: Metoprolol Tartrate 5 MG/5 ML VIAL ONE (18:59)
[2020-12-13] MEDS ORDERED: Enoxaparin Sodium 80 MG/0.8 ML SYRINGE ONE (19:13)
[2020-12-13 20:25] LABS: Troponin I 0.052 ng/mL (< 0.028)
[2020-12-13 23:08] VITALS: BMI 26.9
[2020-12-13 23:42] LABS: Troponin I 0.067 ng/mL (< 0.028)
[2020-12-14] MEDS ORDERED: Apixaban 5 MG TAB PO SCH ×4 (10:16→21:00)
[2020-12-14] MEDS ORDERED: Metoprolol Tartrate 25 MG TAB PO PRN (10:26)
[2020-12-14] MEDS: Sodium Chloride 0.9% 1,000 ML IV SCH ×2 (11:41→20:45)
[2020-12-14 12:51] LABS: SARS-CoV-2 PCR by NAA DETECTED (NotDetected)
[2020-12-14 12:55] LABS: Bacteria/HPF None Seen HPF (None Seen); Bilirubin Negative (Negative); Blood, Urine Negative (Negative); Clarity Clear (Clear); Glucose, Urine (Dipstick) Normal (Negative); Ketone, Urine Negative (Negative); Leukocyte Negative Leu/uL (Negative); Nitrite Negative (Negative); Protein, Urine (Dipstick) 50 mg/dL (Neg-Trace); RBC/HPF 0-3 HPF (0-3); Specific Gravity, Urine 1.019 (1.002-1.036); Squamous Epithelial None Seen HPF (0-3); Urobilinogen Normal mg/dL (Less than 2); pH, Urine 5.5 (5.0-9.0)
[2020-12-14 12:57] LABS: Urine Culture Reflex Yes Yes
[2020-12-14 13:12] LABS: Troponin I 0.048 ng/mL (< 0.028)
[2020-12-14] MEDS: Apixaban 5 MG TAB PO SCH (20:45)
[2020-12-15] MEDS: Sodium Chloride 0.9% 1,000 ML IV SCH (07:14)
[2020-12-15 09:32] LABS: #Basophils 0.1 thou/uL (0.0-0.2); #Eosinphils 0.2 thou/uL (0.0-0.7); #Lymphocytes 1.8 thou/uL (1.20-3.40); #Monocytes 0.7 thou/uL (0.11-0.59); #Neutrophils 3.4 thou/uL (1.40-6.50); %Basophils 1.3 % (0.0-1.0); %Lymphocytes 29.4 % (21.0-51.0); %Neutrophils 55.4 % (42.0-75.0); Hemoglobin 12.2 g/dL (14.0-18.0); Mean Corpuscular HGB CONC 33.4 g/dL (32.0-36.0); Mean Corpuscular Hemoglobin 33.9 pg (27.0-31.0); Mean Platelet Volume 8.1 fL (7.4-10.4); Platelet Count 183 thou/uL (130-400); RBC Distribution Width 11.4 % (11.5-14.5); Red Blood Cell (RBC) Count 3.59 mill/uL (4.70-6.10); White Blood Cell (WBC) Count 6.2 thou/uL (4.8-10.8)
[2020-12-15 09:40] LABS: ALT (SGPT) 17 U/L (8-55); AST (SGOT) 23 U/L (5-34); Albumin 3.4 g/dL (3.4-4.8); Alkaline Phosphatase 62 U/L (40-110); Anion Gap 11 mmol/L (10-20); BUN (Urea Nitrogen) 12 mg/dL (8.4-25.7); Bilirubin, Total 0.4 mg/dL (0.2-1.2); Calc. Creatinine Clearance 82 mL/min (70-130); Calcium 7.9 mg/dL (7.8-10.44); Carbon Dioxide 25 mmol/L (23-31); Chloride 104 mmol/L (98-107); Globulin 1.8 g/dL (2.4-3.5); Glucose 102 mg/dL (83-110); Magnesium 1.8 mg/dL (1.6-2.6); Potassium 4.1 mmol/L (3.5-5.1); Protein, Total 5.2 g/dL (5.8-8.1); Sodium 136 mmol/L (136-145)
[2020-12-15] MEDS: Ascorbic Acid 500 mg Chewable Tablet PO SCH (09:59)
[2020-12-15] MEDS: Apixaban 5 MG TAB PO SCH ×2 (10:00→20:30)
[2020-12-15] MEDS: Cholecalciferol 1,000 UNITS (25 MCG) TAB PO SCH (10:01)
[2020-12-15] MEDS: Zinc Sulfate 220 MG CAP PO SCH (10:01)
[2020-12-15] MEDS: Famotidine 20 MG TAB PO SCH ×2 (10:02→20:30)
[2020-12-15] MEDS ORDERED: Magnesium 2 GM/50 ML 2 GM in Premix Bag 1 BAG IVPB SCH (16:00)
[2020-12-16 05:18] LABS: #Eosinphils 0.3 thou/uL (0.0-0.7); #Lymphocytes 1.6 thou/uL (1.20-3.40); #Monocytes 0.5 thou/uL (0.11-0.59); #Neutrophils 1.8 thou/uL (1.40-6.50); %Basophils 0.3 % (0.0-1.0); %Eosinophils 7.6 % (0.0-10.0); %Lymphocytes 37.2 % (21.0-51.0); %Monocytes 12.4 % (0.0-10.0); %Neutrophils 42.6 % (42.0-75.0); Hemoglobin 11.7 g/dL (14.0-18.0); Mean Corpuscular HGB CONC 32.6 g/dL (32.0-36.0); Mean Corpuscular Hemoglobin 33.2 pg (27.0-31.0); Mean Platelet Volume 7.7 fL (7.4-10.4); Platelet Count 181 thou/uL (130-400); RBC Distribution Width 11.3 % (11.5-14.5); Red Blood Cell (RBC) Count 3.54 mill/uL (4.70-6.10); White Blood Cell (WBC) Count 4.3 thou/uL (4.8-10.8)
[2020-12-16 05:48] LABS: Anion Gap 10 mmol/L (10-20); BUN (Urea Nitrogen) 9 mg/dL (8.4-25.7); Calc. Creatinine Clearance 91 mL/min (70-130); Calcium 7.8 mg/dL (7.8-10.44); Carbon Dioxide 27 mmol/L (23-31); Chloride 104 mmol/L (98-107); Glucose 85 mg/dL (83-110); Potassium 4.3 mmol/L (3.5-5.1); Sodium 137 mmol/L (136-145)
[2020-12-16] MEDS: Cholecalciferol 1,000 UNITS (25 MCG) TAB PO SCH (09:20)
[2020-12-16] MEDS: Famotidine 20 MG TAB PO SCH ×2 (09:20→21:22)
[2020-12-16] MEDS: Apixaban 5 MG TAB PO SCH ×2 (09:20→21:22)
[2020-12-16] MEDS: Zinc Sulfate 220 MG CAP PO SCH (09:20)
[2020-12-16] MEDS: Ascorbic Acid 500 mg Chewable Tablet PO SCH (09:20)
[2020-12-16] MEDS ORDERED: Guaifenesin DM 100-10/5 ML UDCUP PO PRN (11:10)
[2020-12-17] MEDS ORDERED: Heparin 1,000 UNITS/ML VIAL ONE (08:45)
[2020-12-17] MEDS: Apixaban 5 MG TAB PO SCH ×2 (08:48→22:28)
[2020-12-17] MEDS: Cholecalciferol 1,000 UNITS (25 MCG) TAB PO SCH (08:48)
[2020-12-17] MEDS: Famotidine 20 MG TAB PO SCH ×2 (08:49→22:28)
[2020-12-17] MEDS: Zinc Sulfate 220 MG CAP PO SCH (08:49)
[2020-12-17] MEDS: Ascorbic Acid 500 mg Chewable Tablet PO SCH (08:49)
[2020-12-18 05:39] LABS: #Eosinphils 0.2 thou/uL (0.0-0.7); #Lymphocytes 1.8 thou/uL (1.20-3.40); #Monocytes 0.5 thou/uL (0.11-0.59); #Neutrophils 1.8 thou/uL (1.40-6.50); %Basophils 0.5 % (0.0-1.0); %Eosinophils 4.5 % (0.0-10.0); %Lymphocytes 41.7 % (21.0-51.0); %Monocytes 12.2 % (0.0-10.0); %Neutrophils 41.2 % (42.0-75.0); Hemoglobin 12.8 g/dL (14.0-18.0); Mean Corpuscular HGB CONC 32.4 g/dL (32.0-36.0); Mean Corpuscular Hemoglobin 32.7 pg (27.0-31.0); Platelet Count 205 thou/uL (130-400); RBC Distribution Width 11.4 % (11.5-14.5); Red Blood Cell (RBC) Count 3.91 mill/uL (4.70-6.10); White Blood Cell (WBC) Count 4.4 thou/uL (4.8-10.8)
[2020-12-18 06:03] LABS: Anion Gap 11 mmol/L (10-20); BUN (Urea Nitrogen) 10 mg/dL (8.4-25.7); Calc. Creatinine Clearance 88 mL/min (70-130); Calcium 8.4 mg/dL (7.8-10.44); Carbon Dioxide 26 mmol/L (23-31); Chloride 102 mmol/L (98-107); Glucose 81 mg/dL (83-110); Potassium 4.2 mmol/L (3.5-5.1); Sodium 135 mmol/L (136-145)
[2020-12-18 07:07] LABS: Magnesium 1.9 mg/dL (1.6-2.6)
[2020-12-18] MEDS ORDERED: Magnesium Oxide 400 MG TAB PO SCH (09:00)
[2020-12-18 09:03] VITALS: BP 123/67; TEMP 98.5
[2020-12-18] MEDS: Famotidine 20 MG TAB PO SCH (09:36)
[2020-12-18] MEDS: Ascorbic Acid 500 mg Chewable Tablet PO SCH (09:36)
[2020-12-18] MEDS: Cholecalciferol 1,000 UNITS (25 MCG) TAB PO SCH (09:36)
[2020-12-18] MEDS: Apixaban 5 MG TAB PO SCH (09:36)
[2020-12-18] MEDS: Zinc Sulfate 220 MG CAP PO SCH (09:36)
== END 2020-12-18 12:30 | disposition home or self-care (01) | DRG 871 ==
LOC: ERS 16:28 → ERHOLD 18:58 → 2NO 22:30 → 2SW 12-14 11:15 → OBSVTOIN 12-15 10:33
PROVIDERS: ADMIT Internal Medicine; ATTEND Internal Medicine
PROC: 8E0ZXY6 Isolation (ICD-10-PCS; principal; 2020-12-15)
DX: A41.89 Other specified sepsis (principal); U07.1 COVID-19; I24.8 Other forms of acute ischemic heart disease; D53.9 Nutritional anemia, unspecified; I48.91 Unspecified atrial fibrillation; Z85.46 Personal history of malignant neoplasm of prostate; Z87.440 Personal history of urinary (tract) infections; Z88.6 Allergy status to analgesic agent; Z88.8 Allergy status to other drugs, medicaments and biological substances; Z92.3 Personal history of irradiation; Z90.79 Acquired absence of other genital organ(s); Z90.49 Acquired absence of other specified parts of digestive tract; Z98.42 Cataract extraction status, left eye; Z98.41 Cataract extraction status, right eye
CPT/HCPCS: 36415; 36416; 71045; 78472; 80048; 80053; 81001; 82248; 82553; 83615; 83735; 83880; 84100; 84443; 84484; 84550; 85025; 85027; 85379; 85610; 85730; 86140; 87040; 87086; 93005; 93010; 93306; 94760; 96372; 96374; A9604; G0378; J1644; J1650; J3475; J7050; U0003; U0005

== ENCOUNTER 2021-02-26 07:34 | Outpatient (CLI) | payer MEDICARE, OTHER | END 2021-02-26 07:35 | disposition home or self-care (01) | LOC: NM 07:34 | PROVIDERS: ATTEND Internal Medicine Hematology & Oncology | DX: C83.33 Diffuse large B-cell lymphoma, intra-abdominal lymph nodes (principal); M89.9 Disorder of bone, unspecified; N32.89 Other specified disorders of bladder; R93.422 Abnormal radiologic findings on diagnostic imaging of left kidney; Z90.49 Acquired absence of other specified parts of digestive tract; Z90.79 Acquired absence of other genital organ(s) | CPT/HCPCS: 71260; 74177; 78306; 82565; A9503; J1642 ==

== ENCOUNTER 2021-03-07 13:27 | Outpatient (CLI) | payer MEDICARE, OTHER ==
[2021-03-07 15:32] LABS: Mean Corpuscular HGB CONC 32.5 g/dL (32.0-36.0); Mean Corpuscular Volume 98.3 fl (81.2-95.1); Mean Platelet Volume 10.6 fl (7.4-10.4); Platelet Count 247 10x3/uL (150-450); RBC Distribution Width 13.9 % (11.5-14.5); Red Blood Cell (RBC) Count 3.44 10x6/uL (4.32-5.72)
[2021-03-07 15:47] LABS: Anion Gap 13 mmol/L (10-20); BUN (Urea Nitrogen) 18 mg/dL (8.4-25.7); Calc. Creatinine Clearance 0 mL/min (70-130); Calcium 8.7 mg/dL (7.8-10.44); Carbon Dioxide 25 mmol/L (23-31); Glucose 125 mg/dL (83-110); Potassium 4.7 mmol/L (3.5-5.1); Sodium 139 mmol/L (136-145)
[2021-03-07 15:55] LABS: Chloride 106 mmol/L (98-107)
== END 2021-03-07 13:28 | disposition home or self-care (01) ==
LOC: LABBT 13:27
PROVIDERS: ATTEND Urology
DX: Z01.818 Encounter for other preprocedural examination (principal); N32.0 Bladder-neck obstruction
CPT/HCPCS: 80048; 85027; 93005; 93010

== ENCOUNTER 2021-03-12 07:30 | Day surgery (SDC) | payer MEDICARE, OTHER ==
[2021-03-06 14:00] VITALS: BMI 27.1
[2021-03-12] MEDS ORDERED: Levofloxacin 500 mg/D5W 100 ml Premix Bag ONE (08:14)
[2021-03-12] MEDS ORDERED: Iothalamate Meglumine 60% 50 ML VIAL FS ONE (08:23)
[2021-03-12] MEDS ORDERED: Triamcinolone 40 MG/ML VIAL ONE (08:24)
[2021-03-12] MEDS ORDERED: Fentanyl 100 MCG/2 ML VIAL ONE (09:10)
[2021-03-12] MEDS ORDERED: PROPOFOL 200 MG/20 ML VIAL ONE (09:15)
[2021-03-12] MEDS ORDERED: Lidocaine 1% PF 5 ML VIAL ONE (09:15)
[2021-03-12] MEDS ORDERED: Dexamethasone 20 MG/5 ML VIAL ONE (09:15)
[2021-03-12] MEDS ORDERED: Glycopyrrolate 0.2 MG/ML 5 ML SYRINGE ONE (09:15)
[2021-03-12] MEDS ORDERED: Phenylephrine 10 MG/ML VIAL ONE (09:15)
[2021-03-12] MEDS ORDERED: Ondansetron PF 4 MG/2 ML Vial ONE (09:15)
[2021-03-12] MEDS ORDERED: Oxybutynin 5 MG TAB ONE (10:19)
[2021-03-12] MEDS ORDERED: Ketorolac Tromethamine 30 MG/ML VIAL ONE (10:19)
[2021-03-12] MEDS ORDERED: Phenazopyridine HCl 100 MG TAB ONE (10:19)
== END 2021-03-12 11:42 | disposition home or self-care (01) ==
LOC: SDC 07:30
PROVIDERS: ATTEND Urology
PROC: 0TBC8ZZ Excision of Bladder Neck, Via Natural or Artificial Opening Endoscopic (ICD-10-PCS; principal; 2021-03-12)
DX: N32.0 Bladder-neck obstruction (principal); N39.3 Stress incontinence (female) (male); Z85.46 Personal history of malignant neoplasm of prostate; Z79.01 Long term (current) use of anticoagulants; Z79.2 Long term (current) use of antibiotics; Z79.899 Other long term (current) drug therapy; Z88.6 Allergy status to analgesic agent
CPT/HCPCS: J1100; J1885; J1956; J2370; J2405; J2704; J3010; J3301; Q9961-U8

== ENCOUNTER 2021-06-18 07:17 | Day surgery (SDC) | payer MEDICARE, OTHER ==
[2021-06-13 16:00] VITALS: BMI 26.7
[2021-06-18] MEDS ORDERED: Levofloxacin 500 mg/D5W 100 ml Premix Bag ONE (10:26)
[2021-06-18] MEDS ORDERED: Lidocaine 1% MPF 2 ML VIAL ONE (10:27)
[2021-06-18] MEDS ORDERED: Fentanyl 100 MCG/2 ML VIAL ONE (10:56)
[2021-06-18] MEDS ORDERED: Dexamethasone 20 MG/5 ML VIAL ONE (11:10)
[2021-06-18] MEDS ORDERED: PROPOFOL 200 MG/20 ML VIAL ONE (11:10)
[2021-06-18] MEDS ORDERED: Ondansetron PF 4 MG/2 ML Vial ONE (11:10)
[2021-06-18] MEDS ORDERED: Lidocaine 1% PF 5 ML VIAL ONE (11:10)
[2021-06-18] MEDS ORDERED: Ketorolac Tromethamine 30 MG/ML VIAL ONE (11:59)
[2021-06-18] MEDS ORDERED: Oxybutynin 5 MG TAB ONE (11:59)
[2021-06-18] MEDS ORDERED: Phenazopyridine HCl 100 MG TAB ONE (11:59)
== END 2021-06-18 15:15 | disposition home or self-care (01) ==
LOC: SDC 07:17
PROVIDERS: ATTEND Urology
PROC: 0TBC8ZZ Excision of Bladder Neck, Via Natural or Artificial Opening Endoscopic (ICD-10-PCS; principal; 2021-06-18)
DX: N32.0 Bladder-neck obstruction (principal); N32.89 Other specified disorders of bladder; Z85.46 Personal history of malignant neoplasm of prostate; Z86.010 Personal history of colon polyps; Z79.01 Long term (current) use of anticoagulants; Z79.899 Other long term (current) drug therapy; Z88.6 Allergy status to analgesic agent
CPT/HCPCS: J1100; J1885; J1956; J2405; J2704; J3010

== ENCOUNTER 2021-08-13 07:38 | Outpatient (CLI) | payer MEDICARE, OTHER ==
[2021-08-13 09:12] LABS: Estimated GFR-MDRD - POC Greater than 90
[2021-08-13] MEDS ORDERED: Iopamidol 370 76% 100 ML VIAL ONE (09:54)
== END 2021-08-13 07:39 | disposition home or self-care (01) ==
LOC: CT 07:38
PROVIDERS: ATTEND Internal Medicine Hematology & Oncology
DX: C83.33 Diffuse large B-cell lymphoma, intra-abdominal lymph nodes (principal); N32.89 Other specified disorders of bladder; N28.89 Other specified disorders of kidney and ureter; M89.9 Disorder of bone, unspecified; Z90.79 Acquired absence of other genital organ(s); Z90.3 Acquired absence of stomach [part of]
CPT/HCPCS: 71260; 74177; 78306; 82565; A9503; Q9967

== ENCOUNTER 2022-03-03 12:36 | Emergency (ER) | payer MEDICARE, OTHER ==
[2022-03-03 13:17] LABS: #Lymphocytes 3.2 thou/uL (1.20-3.40); #Monocytes 0.7 thou/uL (0.11-0.59); %Basophils 0.1 % (0.0-1.0); %Eosinophils 0.3 % (0.0-10.0); %Lymphocytes 46.5 % (21.0-51.0); %Monocytes 10.3 % (0.0-10.0); %Neutrophils 42.8 % (42.0-75.0); Hemoglobin 15.1 g/dL (14.0-18.0); Mean Corpuscular HGB CONC 32.4 g/dL (32.0-36.0); Mean Corpuscular Hemoglobin 33.7 pg (27.0-31.0); Mean Platelet Volume 8.5 fL (7.4-10.4); Platelet Count 241 10x3/uL (130-400); RBC Distribution Width 11.5 % (11.5-14.5); Red Blood Cell (RBC) Count 4.48 mill/uL (4.70-6.10); White Blood Cell (WBC) Count 6.9 10x3/uL (4.8-10.8)
[2022-03-03 13:43] LABS: ALT (SGPT) 24 U/L (8-55); AST (SGOT) 35 U/L (5-34); Albumin 4.2 g/dL (3.4-4.8); Alkaline Phosphatase 73 U/L (40-110); Anion Gap 17 mmol/L (10-20); BUN (Urea Nitrogen) 16 mg/dL (8.4-25.7); Bilirubin, Total 0.5 mg/dL (0.2-1.2); Calc. Creatinine Clearance 0 mL/min (70-130); Calcium 9.2 mg/dL (7.8-10.44); Carbon Dioxide 23 mmol/L (23-31); Chloride 103 mmol/L (98-107); Estimated GFR 82; Globulin 2.9 g/dL (2.4-3.5); Glucose 100 mg/dL (83-110); Potassium 4.8 mmol/L (3.5-5.1); Protein, Total 7.1 g/dL (5.8-8.1); Sodium 138 mmol/L (136-145)
[2022-03-03] MEDS ORDERED: cefTRIAXone\\ROCEPHIN 1 GM VIAL ONE (17:35)
[2022-03-03 18:55] LABS: Lactic Acid 1.4 mmol/L (0.5-2.2)
== END 2022-03-03 19:20 | disposition home or self-care (01) ==
LOC: ERS 12:36
DX: J18.9 Pneumonia, unspecified organism (principal); E78.5 Hyperlipidemia, unspecified
CPT/HCPCS: 36415; 71045; 80053; 83605; 85025; 94760; 96374; J0696

== ENCOUNTER 2022-10-17 13:42 | Outpatient (CLI) | payer MEDICARE, OTHER | END 2022-10-17 13:43 | disposition home or self-care (01) | LOC: RAD 13:42 | PROVIDERS: ATTEND Nurse Practitioner Family | DX: M54.50 Low back pain, unspecified (principal); M47.816 Spondylosis without myelopathy or radiculopathy, lumbar region | CPT/HCPCS: 72100; 87077; 87086 ==

== ENCOUNTER 2023-02-13 14:03 | Outpatient (CLI) | payer MEDICARE, OTHER | END 2023-02-13 14:04 | disposition home or self-care (01) | LOC: BICRAD 14:03 | PROVIDERS: ATTEND Nurse Practitioner Family | DX: M25.512 Pain in left shoulder (principal); M19.012 Primary osteoarthritis, left shoulder ==

== ENCOUNTER 2023-09-25 07:01 | Outpatient (CLI) | payer MEDICARE, OTHER ==
[2023-09-25] MEDS ORDERED: Iopamidol 370 76% 100 ML VIAL ONE (11:34)
== END 2023-09-25 07:02 | disposition home or self-care (01) ==
LOC: CT 07:01
PROVIDERS: ATTEND Internal Medicine
DX: R63.4 Abnormal weight loss (principal); N28.89 Other specified disorders of kidney and ureter; J90 Pleural effusion, not elsewhere classified; M89.9 Disorder of bone, unspecified; N32.89 Other specified disorders of bladder; Z90.79 Acquired absence of other genital organ(s); Z90.49 Acquired absence of other specified parts of digestive tract
CPT/HCPCS: 71260; 74177; 82565; Q9967

== ENCOUNTER 2024-03-01 08:26 | Outpatient (CLI) | payer MEDICARE, OTHER ==
[2024-03-01] MEDS ORDERED: Iopamidol 370 76% 100 ML VIAL ONE (13:44)
== END 2024-03-01 08:27 | disposition home or self-care (01) ==
LOC: CT 08:26
PROVIDERS: ATTEND Nurse Practitioner Family
DX: C61 Malignant neoplasm of prostate (principal); N32.0 Bladder-neck obstruction; Z85.72 Personal history of non-Hodgkin lymphomas; J90 Pleural effusion, not elsewhere classified; N32.89 Other specified disorders of bladder; Z90.79 Acquired absence of other genital organ(s)
CPT/HCPCS: 36415; 71260; 74177; Q9967

== ENCOUNTER 2024-06-16 05:12 | Inpatient (IN) | payer MEDICARE, OTHER ==
[2024-06-16] MEDS ORDERED: Bupivacaine 0.25% HCL 30 ML VIAL ONE (09:33)
[2024-06-16] MEDS ORDERED: EPINEPHrine 1 MG/ML VIAL ONE (09:33)
[2024-06-16] MEDS ORDERED: Heparin 5,000 UNITS/ML VIAL ONE (10:03)
[2024-06-16] MEDS ORDERED: CeleCOXIB 100 MG CAP ONE (10:03)
[2024-06-16] MEDS ORDERED: Acetaminophen 325 MG TAB ONE (10:03)
[2024-06-16] MEDS ORDERED: metroNIDAZOLE 500 MG (100 mL) BAG ONE (10:04)
[2024-06-16] MEDS ORDERED: Sodium Chloride 0.9% 0 ML ONE (10:05)
[2024-06-16 10:07] LABS: #Basophils 0.04 10x3/uL (0.0-0.2); %Basophils 0.5 % (0.0-1.0); %Eosinophils 0.9 % (0.0-10.0); %Lymphocytes 18.7 % (21.0-51.0); %Monocytes 7.8 % (0.0-10.0); %Neutrophils 71.9 % (42.0-75.0); Hematocrit 40.5 % (42.0-52.0); Hemoglobin 13.3 g/dL (14.0-18.0); Mean Corpuscular HGB CONC 32.8 g/dL (32.0-36.0); Mean Corpuscular Hemoglobin 32.3 pg (27.0-31.0); Mean Corpuscular Volume 98.3 fL (78.0-98.0); Mean Platelet Volume 10.2 fL (7.4-10.4); Platelet Count 283 10x3/uL (130-400); RBC Distribution Width 13.3 % (11.5-14.5); Red Blood Cell (RBC) Count 4.12 mill/uL (4.70-6.10)
[2024-06-16 10:38] LABS: ALT (SGPT) 9 U/L (Less than 45); AST (SGOT) 24 U/L (11-34); Albumin 3.7 g/dL (3.1-4.5); Alkaline Phosphatase 91 U/L (40-110); Anion Gap 16 mmol/L (10-20); BUN (Urea Nitrogen) 15 mg/dL (8.4-25.7); Bilirubin, Total 1.1 mg/dL (0.3-1.2); Calc. Creatinine Clearance 68 mL/min (70-130); Calcium 9.3 mg/dL (7.8-10.44); Carbon Dioxide 25 mmol/L (23-31); Chloride 102 mmol/L (98-107); Estimated GFR 85; Globulin 3.2 g/dL (2.4-3.5); Glucose 67 mg/dL (83-110); Potassium 4.4 mmol/L (3.5-5.1); Protein, Total 6.9 g/dL (5.8-8.1); Sodium 139 mmol/L (136-145)
[2024-06-16] MEDS ORDERED: Famotidine/PF 20 mg/2ml Vial ONE (11:06)
[2024-06-16] MEDS ORDERED: Norepinephrine 4 MG/4 ML VIAL ONE (11:06)
[2024-06-16] MEDS ORDERED: fentaNYL PF 100 MCG/2 ML SYRINGE ONE (11:10)
[2024-06-16] MEDS ORDERED: PROPOFOL 20 ML ONE (11:10)
[2024-06-16] MEDS ORDERED: CEFAZOLIN 2 GM VIAL ONE (11:11)
[2024-06-16] MEDS ORDERED: Lidocaine 2% PF 5 ML VIAL ONE (11:13)
[2024-06-16] MEDS ORDERED: Rocuronium Bromide 10 MG/ML (10ML VIAL) ONE (11:13)
[2024-06-16] MEDS ORDERED: PHENYLEPHRINE-NS 100 MCG/ML 10 ML SYRINGE ONE (11:34)
[2024-06-16] MEDS ORDERED: Indocyanine Green 25 MG/10 ML VIAL ONE (13:01)
[2024-06-16] MEDS ORDERED: Ondansetron PF 4 MG/2 ML Vial ONE (13:06)
[2024-06-16] MEDS ORDERED: Dexamethasone 4 mg/ml Vial ONE (13:06)
[2024-06-16] MEDS ORDERED: SUGAMMADEX SODIUM 200 MG/2 ML VIAL ONE (13:06)
[2024-06-16] MEDS ORDERED: Ondansetron HCl/PF 4 MG/2 ML Vial IVP PRN (13:57)
[2024-06-16] MEDS ORDERED: Promethazine HCl 25 MG/ML VIAL IM PRN ×2 (13:57→14:40)
[2024-06-16] MEDS ORDERED: hydrALAZINE 20 MG/ML VIAL SLOW IVP PRN (14:40)
[2024-06-16] MEDS ORDERED: fentaNYL 50 mcg/mL 1 mL Vial ONE (15:02)
[2024-06-16] MEDS ORDERED: HYDROmorphone 0.5 MG/0.5 ML SYRINGE ONE (15:02)
[2024-06-16] MEDS: traMADol HCl 50 MG TAB PO PRN (17:23)
[2024-06-16] MEDS: Famotidine 20 MG TAB PO SCH (20:00)
[2024-06-17 05:31] LABS: #Basophils Less than 0.03 10x3/uL (0.0-0.2); #Eosinophils Less than 0.03 10x3/uL (0.0-0.7); %Basophils 0.1 % (0.0-1.0); %Lymphocytes 5.1 % (21.0-51.0); %Monocytes 6.5 % (0.0-10.0); %Neutrophils 87.7 % (42.0-75.0); Hematocrit 37.6 % (42.0-52.0); Hemoglobin 12.2 g/dL (14.0-18.0); Mean Corpuscular HGB CONC 32.4 g/dL (32.0-36.0); Mean Corpuscular Hemoglobin 32.9 pg (27.0-31.0); Mean Corpuscular Volume 101.3 fL (78.0-98.0); Mean Platelet Volume 10.9 fL (7.4-10.4); Platelet Count 261 10x3/uL (130-400); RBC Distribution Width 13.3 % (11.5-14.5); Red Blood Cell (RBC) Count 3.71 mill/uL (4.70-6.10)
[2024-06-17 05:47] LABS: Anion Gap 20 mmol/L (10-20); BUN (Urea Nitrogen) 23 mg/dL (8.4-25.7); Calc. Creatinine Clearance 57 mL/min (70-130); Calcium 8.5 mg/dL (7.8-10.44); Carbon Dioxide 20 mmol/L (23-31); Chloride 102 mmol/L (98-107); Estimated GFR 75; Glucose 89 mg/dL (83-110); Potassium 4.7 mmol/L (3.5-5.1); Sodium 137 mmol/L (136-145)
[2024-06-17] MEDS: Enoxaparin 40 MG (0.4 mL) SYRINGE SC SCH (08:46)
[2024-06-18] MEDS: Ondansetron PF 4 MG/2 ML Vial IVP PRN (08:14)
[2024-06-18] MEDS: traMADol HCl 50 MG TAB PO PRN (08:14)
[2024-06-18] MEDS: D5 1/2 NS w/20 mEq KCL 1,000 ML IV SCH (12:33)
[2024-06-18] MEDS: Acetaminophen 325 MG TAB PO PRN (16:23)
[2024-06-19 05:31] LABS: Anion Gap 11 mmol/L (10-20); BUN (Urea Nitrogen) 31 mg/dL (8.4-25.7); Calc. Creatinine Clearance 48 mL/min (70-130); Calcium 8.5 mg/dL (7.8-10.44); Carbon Dioxide 26 mmol/L (23-31); Chloride 98 mmol/L (98-107); Estimated GFR 62; Glucose 113 mg/dL (83-110); Potassium 4.9 mmol/L (3.5-5.1); Sodium 130 mmol/L (136-145)
[2024-06-19 05:46] LABS: Hematocrit 33.3 % (42.0-52.0); Mean Corpuscular Hemoglobin 32.6 pg (27.0-31.0); Mean Corpuscular Volume 98.8 fL (78.0-98.0); Mean Platelet Volume 11.2 fL (7.4-10.4); Platelet Count 230 10x3/uL (130-400); RBC Distribution Width 13.5 % (11.5-14.5); Red Blood Cell (RBC) Count 3.37 mill/uL (4.70-6.10)
[2024-06-19] MEDS: D5 1/2 NS w/20 mEq KCL 1,000 ML IV SCH (12:11)
[2024-06-20] MEDS: Metoprolol Tartrate 25 MG TAB PO SCH (11:32)
[2024-06-21 06:26] LABS: Hematocrit 33.3 % (42.0-52.0); Hemoglobin 10.8 g/dL (14.0-18.0); Mean Corpuscular HGB CONC 32.4 g/dL (32.0-36.0); Mean Corpuscular Hemoglobin 32.5 pg (27.0-31.0); Mean Corpuscular Volume 100.3 fL (78.0-98.0); Platelet Count 290 10x3/uL (130-400); RBC Distribution Width 13.2 % (11.5-14.5); Red Blood Cell (RBC) Count 3.32 mill/uL (4.70-6.10)
[2024-06-21 06:38] LABS: Anion Gap 12 mmol/L (10-20); BUN (Urea Nitrogen) 16 mg/dL (8.4-25.7); Calc. Creatinine Clearance 64 mL/min (70-130); Calcium 8.4 mg/dL (7.8-10.44); Carbon Dioxide 23 mmol/L (23-31); Chloride 100 mmol/L (98-107); Estimated GFR 84; Glucose 79 mg/dL (83-110); Potassium 5.3 mmol/L (3.5-5.1); Sodium 130 mmol/L (136-145)
[2024-06-21] MEDS: Furosemide 20 MG (2 mL) VIAL SLOW IVP SCH (13:02)
[2024-06-21] MEDS: Dextrose 5 % And 0.9 % NaCl 1,000 ML IV SCH (13:04)
[2024-06-21] MEDS: Morphine 4 MG/ML VIAL SLOW IVP PRN (16:09)
[2024-06-22 05:40] LABS: Anion Gap 14 mmol/L (10-20); BUN (Urea Nitrogen) 17 mg/dL (8.4-25.7); Calc. Creatinine Clearance 50 mL/min (70-130); Calcium 8.1 mg/dL (7.8-10.44); Carbon Dioxide 18 mmol/L (23-31); Chloride 102 mmol/L (98-107); Estimated GFR 65; Glucose 59 mg/dL (83-110); Magnesium 1.6 mg/dL (1.6-2.6); Potassium 5.6 mmol/L (3.5-5.1); Sodium 128 mmol/L (136-145)
[2024-06-22] MEDS: Furosemide 40 MG TAB PO SCH (06:32)
[2024-06-22] MEDS: Furosemide 40 MG (4 mL) VIAL IVP SCH (06:35)
[2024-06-22 12:10] LABS: Anion Gap 15 mmol/L (10-20); BUN (Urea Nitrogen) 18 mg/dL (8.4-25.7); Calc. Creatinine Clearance 45 mL/min (70-130); Calcium 9.1 mg/dL (7.8-10.44); Carbon Dioxide 22 mmol/L (23-31); Chloride 99 mmol/L (98-107); Estimated GFR 57; Glucose 68 mg/dL (83-110); Potassium 5.3 mmol/L (3.5-5.1); Sodium 131 mmol/L (136-145)
[2024-06-22] MEDS: Furosemide 20 MG (2 mL) VIAL SLOW IVP SCH (18:01)
[2024-06-22] MEDS: Dextrose 5 % And 0.9 % NaCl 1,000 ML IV SCH (20:33)
[2024-06-23 05:50] LABS: Anion Gap 18 mmol/L (10-20); BUN (Urea Nitrogen) 22 mg/dL (8.4-25.7); Calc. Creatinine Clearance 42 mL/min (70-130); Calcium 8.2 mg/dL (7.8-10.44); Carbon Dioxide 15 mmol/L (23-31); Chloride 105 mmol/L (98-107); Estimated GFR 53; Glucose 57 mg/dL (83-110); Potassium 5.7 mmol/L (3.5-5.1); Sodium 132 mmol/L (136-145)
[2024-06-23] MEDS: Sodium Chloride 0.9% 500 ML IV SCH (06:40)
[2024-06-23] MEDS: Dextrose 5 % And 0.9 % NaCl 1,000 ML IV SCH (06:44)
[2024-06-23] MEDS: Dextrose 50% Abboject 50 ML SYRINGE SLOW IVP SCH ×3 (09:31→17:19)
[2024-06-23] MEDS: Insulin Regular, Human 100 UNIT/ML 10 ML VIAL IVP SCH (09:31)
[2024-06-23] MEDS: Albuterol 1.25 MG (3 mL) NEB NEB SCH (09:52)
[2024-06-23] MEDS: Amino Acids 4.25 %/Dextrose 5% 1,000 ML IV SCH (11:11)
[2024-06-23 11:37] VITALS: BMI 23.9
[2024-06-23] MEDS ORDERED: Albuterol 1.25 MG (3 mL) NEB NEB SCH (13:45)
[2024-06-23] MEDS: Albuterol 2.5 MG (3 mL) NEB NEB SCH (13:47)
[2024-06-23 13:56] LABS: Anion Gap 14 mmol/L (10-20); BUN (Urea Nitrogen) 21 mg/dL (8.4-25.7); Calc. Creatinine Clearance 48 mL/min (70-130); Calcium 8.1 mg/dL (7.8-10.44); Carbon Dioxide 22 mmol/L (23-31); Chloride 104 mmol/L (98-107); Estimated GFR 60; Glucose 26 mg/dL (83-110); Sodium 136 mmol/L (136-145)
[2024-06-23] MEDS: Milk Of Magnesia 30 ML UDCUP PO SCH (16:09)
[2024-06-23] MEDS: Thiamine HCl 200 MG/2 ML VIAL SLOW IVP SCH (16:09)
[2024-06-23] MEDS: Multivitamins, Adult 10 ML in Sodium Chloride 0.9% 500 ML IV SCH (16:10)
[2024-06-23] MEDS: Multivit, Adult Inj 10 ML VIAL IV SCH (16:48)
[2024-06-24 04:20] LABS: Hematocrit 28.8 % (42.0-52.0); Hemoglobin 9.8 g/dL (14.0-18.0); Mean Corpuscular Hemoglobin 32.9 pg (27.0-31.0); Mean Corpuscular Volume 96.6 fL (78.0-98.0); Mean Platelet Volume 10.5 fL (7.4-10.4); Platelet Count 284 10x3/uL (130-400); RBC Distribution Width 13.3 % (11.5-14.5); Red Blood Cell (RBC) Count 2.98 mill/uL (4.70-6.10)
[2024-06-24 04:31] LABS: Phosphorus 2.9 mg/dL (2.5-4.5)
[2024-06-24 04:32] LABS: ALT (SGPT) 13 U/L (Less than 45); AST (SGOT) 22 U/L (11-34); Albumin 2.2 g/dL (3.1-4.5); Alkaline Phosphatase 53 U/L (40-110); Anion Gap 10 mmol/L (10-20); BUN (Urea Nitrogen) 26 mg/dL (8.4-25.7); Bilirubin, Total 0.6 mg/dL (0.3-1.2); Calc. Creatinine Clearance 54 mL/min (70-130); Calcium 7.6 mg/dL (7.8-10.44); Carbon Dioxide 23 mmol/L (23-31); Chloride 103 mmol/L (98-107); Estimated GFR 69; Glucose 115 mg/dL (83-110); Magnesium 1.5 mg/dL (1.6-2.6); Potassium 4.3 mmol/L (3.5-5.1); Protein, Total 4.2 g/dL (5.8-8.1); Sodium 132 mmol/L (136-145)
[2024-06-24] MEDS ORDERED: Electrolyte Replacement Protocol 1 EACH FS SCH (09:00)
[2024-06-24] MEDS: Magnesium 2 GM/50 ML(in water) 2 GM in Premix 1 BAG IVPB SCH (11:13)
[2024-06-25] MEDS: Milk Of Magnesia 30 ML UDCUP PO SCH (12:35)
[2024-06-26 05:59] LABS: Hematocrit 32.5 % (42.0-52.0); Hemoglobin 10.8 g/dL (14.0-18.0); Mean Corpuscular HGB CONC 33.2 g/dL (32.0-36.0); Mean Corpuscular Volume 96.2 fL (78.0-98.0); Mean Platelet Volume 10.8 fL (7.4-10.4); Platelet Count 312 10x3/uL (130-400); RBC Distribution Width 13.7 % (11.5-14.5); Red Blood Cell (RBC) Count 3.38 mill/uL (4.70-6.10)
[2024-06-26 06:32] LABS: Anion Gap 11 mmol/L (10-20); BUN (Urea Nitrogen) 20 mg/dL (8.4-25.7); Calc. Creatinine Clearance 99 mL/min (70-130); Calcium 7.3 mg/dL (7.8-10.44); Carbon Dioxide 19 mmol/L (23-31); Chloride 106 mmol/L (98-107); Estimated GFR 95; Glucose 99 mg/dL (83-110); Potassium 3.5 mmol/L (3.5-5.1); Sodium 132 mmol/L (136-145)
[2024-06-26] MEDS: Potassium Chloride 20 MEQ TAB PO SCH (08:19)
[2024-06-27] MEDS: HYDROcodone/Acetaminophen 7.5/325 mg Tablet PO PRN (17:21)
[2024-06-27] MEDS: Milk Of Magnesia 30 ML UDCUP PO SCH (17:21)
[2024-06-27] MEDS ORDERED: Dextrose 50% Abboject 50 ML SYRINGE SLOW IVP PRN (21:45)
[2024-06-27] MEDS ORDERED: Dextrose 5% in Water 1,000 ML IV PRN (21:45)
[2024-06-27] MEDS ORDERED: Glucagon 1 MG/ML KIT IM PRN (21:45)
[2024-06-27 21:58] LABS: ALT (SGPT) 11 U/L (Less than 45); AST (SGOT) 21 U/L (11-34); Albumin 2.1 g/dL (3.1-4.5); Alkaline Phosphatase 60 U/L (40-110); Anion Gap 10 mmol/L (10-20); BUN (Urea Nitrogen) 22 mg/dL (8.4-25.7); Bilirubin, Total 0.8 mg/dL (0.3-1.2); Calc. Creatinine Clearance 88 mL/min (70-130); Calcium 7.6 mg/dL (7.8-10.44); Carbon Dioxide 22 mmol/L (23-31); Chloride 105 mmol/L (98-107); Estimated GFR 92; Globulin 2.6 g/dL (2.4-3.5); Glucose 94 mg/dL (83-110); Potassium 3.9 mmol/L (3.5-5.1); Protein, Total 4.7 g/dL (5.8-8.1); Sodium 133 mmol/L (136-145)
[2024-06-27] MEDS: Furosemide 20 MG (2 mL) VIAL SLOW IVP SCH (23:00)
[2024-06-28 04:56] LABS: Hematocrit 30.7 % (42.0-52.0); Hemoglobin 10.2 g/dL (14.0-18.0); Mean Corpuscular HGB CONC 33.2 g/dL (32.0-36.0); Mean Corpuscular Hemoglobin 32.4 pg (27.0-31.0); Mean Corpuscular Volume 97.5 fL (78.0-98.0); Mean Platelet Volume 10.7 fL (7.4-10.4); Platelet Count 277 10x3/uL (130-400); RBC Distribution Width 13.8 % (11.5-14.5); Red Blood Cell (RBC) Count 3.15 mill/uL (4.70-6.10)
[2024-06-28 05:11] LABS: Anion Gap 7 mmol/L (10-20); BUN (Urea Nitrogen) 18 mg/dL (8.4-25.7); Calc. Creatinine Clearance 88 mL/min (70-130); Calcium 7.6 mg/dL (7.8-10.44); Carbon Dioxide 23 mmol/L (23-31); Chloride 106 mmol/L (98-107); Estimated GFR 92; Glucose 83 mg/dL (83-110); Potassium 3.6 mmol/L (3.5-5.1); Sodium 132 mmol/L (136-145)
[2024-06-28] MEDS: Amoxicillin/Potassium Clav 500 MG TAB PO SCH ×2 (09:56→19:44)
[2024-06-30 06:07] LABS: Hemoglobin 10.6 g/dL (14.0-18.0); Mean Corpuscular HGB CONC 34.2 g/dL (32.0-36.0); Mean Corpuscular Hemoglobin 32.7 pg (27.0-31.0); Mean Corpuscular Volume 95.7 fL (78.0-98.0); Mean Platelet Volume 10.3 fL (7.4-10.4); Platelet Count 313 10x3/uL (130-400); Red Blood Cell (RBC) Count 3.24 mill/uL (4.70-6.10)
[2024-06-30 06:21] LABS: Anion Gap 10 mmol/L (10-20); BUN (Urea Nitrogen) 14 mg/dL (8.4-25.7); Calc. Creatinine Clearance 91 mL/min (70-130); Calcium 7.9 mg/dL (7.8-10.44); Carbon Dioxide 23 mmol/L (23-31); Chloride 104 mmol/L (98-107); Estimated GFR 93; Glucose 68 mg/dL (83-110); Potassium 3.4 mmol/L (3.5-5.1); Sodium 134 mmol/L (136-145)
[2024-06-30] MEDS: Potassium Chloride 20 MEQ TAB PO SCH (10:58)
[2024-06-30] MEDS: HYDROcodone/Acetaminophen 7.5/325 mg Tablet PO PRN (15:54)
[2024-06-30] MEDS: Ipratropium/Albuterol 3 ML NEB NEB PRN (16:38)
[2024-06-30] MEDS ORDERED: dilTIAZem 125 MG in Sodium Chloride 0.9% 100 ML IVPB SCH (17:00)
[2024-06-30 17:16] LABS: Magnesium 1.7 mg/dL (1.6-2.6)
[2024-06-30] MEDS: Diltiazem HCl/D5W 125 MG in Premix 1 BAG IVPB SCH (18:24)
[2024-06-30] MEDS: Magnesium 2 GM/50 ML(in water) 2 GM in Premix 1 BAG IVPB SCH (19:11)
[2024-06-30] MEDS: Enoxaparin 80 MG (0.8 mL) SYRINGE SC SCH (20:40)
[2024-07-01 03:44] LABS: #Basophils 0.03 10x3/uL (0.0-0.2); #Eosinophils Less than 0.03 10x3/uL (0.0-0.7); %Basophils 0.2 % (0.0-1.0); %Lymphocytes 7.7 % (21.0-51.0); %Monocytes 6.5 % (0.0-10.0); Hematocrit 30.8 % (42.0-52.0); Hemoglobin 10.2 g/dL (14.0-18.0); Mean Corpuscular HGB CONC 33.1 g/dL (32.0-36.0); Mean Corpuscular Hemoglobin 32.5 pg (27.0-31.0); Mean Corpuscular Volume 98.1 fL (78.0-98.0); Mean Platelet Volume 10.6 fL (7.4-10.4); Platelet Count 295 10x3/uL (130-400); Red Blood Cell (RBC) Count 3.14 mill/uL (4.70-6.10)
[2024-07-01 04:02] LABS: ALT (SGPT) 11 U/L (Less than 45); AST (SGOT) 20 U/L (11-34); Alkaline Phosphatase 77 U/L (40-110); Anion Gap 12 mmol/L (10-20); BUN (Urea Nitrogen) 15 mg/dL (8.4-25.7); Calc. Creatinine Clearance 70 mL/min (70-130); Calcium 8.1 mg/dL (7.8-10.44); Carbon Dioxide 19 mmol/L (23-31); Chloride 105 mmol/L (98-107); Estimated GFR 85; Globulin 2.4 g/dL (2.4-3.5); Glucose 77 mg/dL (83-110); Potassium 4.1 mmol/L (3.5-5.1); Protein, Total 4.4 g/dL (5.8-8.1); Sodium 132 mmol/L (136-145)
[2024-07-01] MEDS: Magnesium 2 GM/50 ML(in water) 2 GM in Premix 1 BAG IVPB SCH (09:50)
[2024-07-01 11:47] LABS: Free T4 (Free Thyroxine) 0.69 ng/dL (0.70-1.48)
[2024-07-02 05:08] LABS: #Basophils Less than 0.03 10x3/uL (0.0-0.2); %Basophils 0.3 % (0.0-1.0); %Eosinophils 1.3 % (0.0-10.0); %Lymphocytes 13.6 % (21.0-51.0); %Monocytes 6.6 % (0.0-10.0); %Neutrophils 77.6 % (42.0-75.0); Hematocrit 28.3 % (42.0-52.0); Hemoglobin 9.7 g/dL (14.0-18.0); Mean Corpuscular HGB CONC 34.3 g/dL (32.0-36.0); Mean Corpuscular Volume 96.3 fL (78.0-98.0); Platelet Count 303 10x3/uL (130-400); Red Blood Cell (RBC) Count 2.94 mill/uL (4.70-6.10)
[2024-07-02 05:26] LABS: Anion Gap 12 mmol/L (10-20); BUN (Urea Nitrogen) 17 mg/dL (8.4-25.7); Calc. Creatinine Clearance 81 mL/min (70-130); Calcium 7.9 mg/dL (7.8-10.44); Carbon Dioxide 22 mmol/L (23-31); Chloride 105 mmol/L (98-107); Estimated GFR 89; Glucose 85 mg/dL (83-110); Potassium 4.1 mmol/L (3.5-5.1); Sodium 135 mmol/L (136-145)
[2024-07-02] MEDS: Levothyroxine Sodium 125 MCG TAB PO SCH (06:32)
[2024-07-02] MEDS: Amiodarone 150 MG, Admixture Fee 1 EACH in Dextrose 5% in Water 100 ML IVPB SCH (12:30)
[2024-07-02] MEDS: Amiodarone 450 MG in Dextrose 5% in Water 250 ML IVPB SCH (12:40)
[2024-07-02] MEDS: Enoxaparin 80 MG (0.8 mL) SYRINGE SC SCH (22:44)
[2024-07-03] MEDS: Enoxaparin 80 MG (0.8 mL) SYRINGE SC SCH (21:02)
[2024-07-04] MEDS: Levothyroxine Sodium 50 MCG TAB PO SCH (05:43)
[2024-07-04] MEDS: Sodium Chloride 0.9% 1,000 ML IV SCH (16:58)
[2024-07-04] MEDS: Amiodarone 200 MG TAB PO SCH (16:58)
[2024-07-04 19:23] VITALS: BMI 24.9
[2024-07-05] MEDS: Benzonatate 100 MG CAP PO SCH (11:32)
[2024-07-05 11:47] LABS: #Basophils 0.04 10x3/uL (0.0-0.2); %Basophils 0.5 % (0.0-1.0); %Eosinophils 0.6 % (0.0-10.0); %Lymphocytes 12.1 % (21.0-51.0); %Monocytes 6.1 % (0.0-10.0); %Neutrophils 79.9 % (42.0-75.0); Hematocrit 32.6 % (42.0-52.0); Hemoglobin 10.9 g/dL (14.0-18.0); Mean Corpuscular HGB CONC 33.4 g/dL (32.0-36.0); Mean Corpuscular Hemoglobin 32.2 pg (27.0-31.0); Mean Corpuscular Volume 96.4 fL (78.0-98.0); Mean Platelet Volume 10.5 fL (7.4-10.4); Platelet Count 357 10x3/uL (130-400); Red Blood Cell (RBC) Count 3.38 mill/uL (4.70-6.10)
[2024-07-05 12:22] LABS: Anion Gap 8 mmol/L (10-20); BUN (Urea Nitrogen) 14 mg/dL (8.4-25.7); Calc. Creatinine Clearance 90 mL/min (70-130); Calcium 7.7 mg/dL (7.8-10.44); Carbon Dioxide 28 mmol/L (23-31); Chloride 103 mmol/L (98-107); Estimated GFR 91; Glucose 106 mg/dL (83-110); Potassium 4.3 mmol/L (3.5-5.1); Sodium 135 mmol/L (136-145)
[2024-07-05] MEDS: Benzonatate 100 MG CAP PO PRN (18:37)
[2024-07-05] MEDS: Apixaban 2.5 MG TAB PO SCH (20:46)
[2024-07-05] MEDS: Melatonin 3 MG TAB PO PRN (20:47)
[2024-07-06 04:45] LABS: #Basophils 0.03 10x3/uL (0.0-0.2); %Basophils 0.4 % (0.0-1.0); %Eosinophils 1.8 % (0.0-10.0); %Lymphocytes 17.9 % (21.0-51.0); %Monocytes 8.5 % (0.0-10.0); %Neutrophils 70.4 % (42.0-75.0); Hematocrit 32.8 % (42.0-52.0); Hemoglobin 10.6 g/dL (14.0-18.0); Mean Corpuscular HGB CONC 32.3 g/dL (32.0-36.0); Mean Corpuscular Hemoglobin 31.5 pg (27.0-31.0); Mean Corpuscular Volume 97.6 fL (78.0-98.0); Mean Platelet Volume 10.5 fL (7.4-10.4); Platelet Count 351 10x3/uL (130-400); RBC Distribution Width 14.1 % (11.5-14.5); Red Blood Cell (RBC) Count 3.36 mill/uL (4.70-6.10)
[2024-07-06 05:04] LABS: Anion Gap 11 mmol/L (10-20); BUN (Urea Nitrogen) 13 mg/dL (8.4-25.7); Calc. Creatinine Clearance 92 mL/min (70-130); Calcium 7.6 mg/dL (7.8-10.44); Carbon Dioxide 26 mmol/L (23-31); Chloride 104 mmol/L (98-107); Estimated GFR 92; Glucose 79 mg/dL (83-110); Potassium 4.1 mmol/L (3.5-5.1); Sodium 137 mmol/L (136-145)
[2024-07-06] MEDS: Sodium Chloride 0.9% 1,000 ML IV SCH (12:31)
[2024-07-06 17:19] VITALS: BP 101/63; TEMP 98.1
== END 2024-07-06 18:40 | DRG 333 ==
LOC: SURG A 08:39 → IMCU/EMU 06-30 17:44 → 2NO 07-02 18:42
PROVIDERS: ADMIT Surgery; ATTEND Surgery
PROC: 0DBP4ZZ Excision of Rectum, Percutaneous Endoscopic Approach (ICD-10-PCS; principal; 2024-06-16)
PROC: 0T7C8ZZ Dilation of Bladder Neck, Via Natural or Artificial Opening Endoscopic (ICD-10-PCS; 2024-06-16)
PROC: 8E0W4CZ Robotic Assisted Procedure of Trunk Region, Percutaneous Endoscopic Approach (ICD-10-PCS; 2024-06-16)
PROC: 3E033XZ Introduction of Vasopressor into Peripheral Vein, Percutaneous Approach (ICD-10-PCS; 2024-06-16)
DX: C20 Malignant neoplasm of rectum (principal); I97.191 Other postprocedural cardiac functional disturbances following other surgery; K56.7 Ileus, unspecified; K91.89 Other postprocedural complications and disorders of digestive system; N17.9 Acute kidney failure, unspecified; N32.0 Bladder-neck obstruction; D53.9 Nutritional anemia, unspecified; Z90.49 Acquired absence of other specified parts of digestive tract; Z98.890 Other specified postprocedural states; Z79.899 Other long term (current) drug therapy; Z85.46 Personal history of malignant neoplasm of prostate; Z85.72 Personal history of non-Hodgkin lymphomas; Z88.8 Allergy status to other drugs, medicaments and biological substances; E87.5 Hyperkalemia; I48.0 Paroxysmal atrial fibrillation; E03.9 Hypothyroidism, unspecified; R31.9 Hematuria, unspecified; N18.2 Chronic kidney disease, stage 2 (mild); I12.9 Hypertensive chronic kidney disease with stage 1 through stage 4 chronic kidney disease, or unspecified chronic kidney disease
CPT/HCPCS: 36415; 36416; 71045; 74018; 74019; 74022; 80048; 80053; 82378; 83735; 83880; 84100; 84439; 84443; 84481; 85025; 85027; 88309; 93005; 93010; 93306; 94640; 97139; A4314; A4340; C1769; C1889; J0171; J0282; J0665; J1100; J1171; J1644; J1650; J1815; J1940; J2270; J2405; J2704; J3010; J3411; J3475; J3480; J3490; J7030; J7042; J7070; J7611; J7620; J7999; S2900